=== PATIENT | female | born 1965 | race Caucasian/White ===

== ENCOUNTER 2024-08-05 18:37 | Inpatient (IN) ==
[2024-08-05] MEDS: SODIUM CHLORIDE 0.9% 1,000 ML IV SCH (19:06)
[2024-08-05] MEDS: ONDANSETRON INJ 2 MG/ML 2 ML VIAL IV STA (19:06)
[2024-08-05 19:18] LABS: iSTAT Creatinine 4.1 mg/dl (0.6-1.3); iSTAT Hemoglobin 14.3 g/dl (12.0-16.0); iSTAT Ionized Calcium 1.1 mmol/l (1.12-1.32); iSTAT Potassium 4.9 mmol/L (3.3-5.0)
[2024-08-05 19:19] LABS: Basophils # (auto) 0.09 K/uL (0.00-0.20); Basophils % (auto) 0.6 %; Eosinophils # (auto) 0.08 K/uL (0.00-0.50); Eosinophils % (auto) 0.6 %; Hematocrit (blood only) 37.3 % (37.0-47.0); Hemoglobin 12.9 g/dl (12.0-16.0); Immature Granulocytes # (auto) 0.07 K/uL (0.01-0.20); Immature Granulocytes % (auto) 0.5 %; Lymphocytes # (auto) 3.56 K/uL (1.20-3.40); Lymphocytes % (auto) 25.4 %; Mean Corpuscular Hemoglobin 29.7 pg (25.0-34.0); Mean Corpuscular Hgb Conc 34.6 g/dL (32.0-36.0); Mean Corpuscular Volume 85.9 fL (80.0-100.0); Mean Platelet Volume 10.3 fL (9.4-12.4); Monocytes # (auto) 0.53 K/uL (0.11-0.59); Monocytes % (auto) 3.8 %; Neutrophils # (auto) 9.66 K/uL (1.40-6.50); Neutrophils % (auto) 69.1 %; Platelet Count 503 K/uL (130-400); RDW Coefficient of Variation 13.4 % (11.5-14.5); RDW Standard Deviation 41.5 fL (36.4-46.3); Red Blood Count 4.34 M/uL (4.20-5.40); White Blood Count 13.99 K/ul (4.8-10.8)
--- NOTE | 2024-08-05 19:20 | Emergency Department Note ---
Impression & Plan Gastroenteritis, Elevated lactic acid level, Hypotension, PRIYANK (acute kidney injury) ED Provider Note Provider: Andre Mohamud MD CHIEF COMPLAINT: Nausea vomiting diarrhea, weakness HISTORY OF PRESENT ILLNESS: Patient is a 58-year-old female history of hypertension hypothyroidism presenting here today reporting over the last 2 days been experiencing nausea vomiting and several episodes of nonbloody diarrhea. Denies any abdominal pain or chest pain. Feeling generally weak and fatigued. No fevers or sick contacts. No travel. No suspect food intake. Almost no water intake today but did eat and drink some yesterday. Feels nauseous now. No chest pain again or significant shortness of breath. Denies specifically again any abdominal pain. States she has been urinating okay today. Denies drug or alcohol use today. Denies URI symptoms or significant cough PAST MEDICAL HISTORY: As noted above MEDICATIONS: Reviewed home medications SOCIAL HISTORY: Smoker PHYSICAL EXAM: GENERAL: alert and oriented in no acute distress on stretcher somewhat fatigued appearing Head: normocephalic and atraumatic EYES: No injection, discharge or icterus. EOMI. NECK: Trachea midline. Good range of motion ENT: Mucous membranes pink and moist. LUNGS: Airway patent. No retractions. Breath sounds clear HEART: Regular tachycardic rate and rhythm. No chest wall tenderness ABDOMEN: Soft and non-tender, without guarding or rebound. No masses appreciated. SKIN: Acyanotic, warm, dry, without rashes EXTREMITIES: Without swelling, tenderness or deformity NEUROLOGICAL: No focal deficits moving all extremities. No aphasia. No facial droop or slurred speech. EK bpm sinus tachycardia. No PVC. Diffuse T wave inversions throughout without acute ST segment elevation. QTc 504. CONTINUOUS CARDIAC MONITORING: was ordered and showed a heart rate of 70s-110s bpm in sinus tachycardia Patient's laboratory studies and imaging reviewed. Differential includes Infection, dehydration, gastroenteritis, pancreatitis, perforation, obstruction, volvulus, constipation, cholecystitis, appendicitis, bowel ischemia, metabolic abnormality, hypo/hyperglycemia, electrolyte disturbance, anemia, hypoxia, cardiac sources, intracerebral event, toxicologic, neurologic, as well as other pathologies. IMPRESSION/MEDICAL DECISION MAKING: Patient denies any significant pain. Noted be hypotensive in triage and mildly tachycardic. Difficulty getting a fever but rectal temperature here not elevated or specifically low. No suspect food intake or recent travel or sick contact reported. Benign abdomen on exam. Blood work here without severe electrolyte abnormality but evidence of significant renal dysfunction creatinine over 3.6. Do not see a history of this. Blood work is sent to exclude findings for hepatitis and pancreatitis. Will obtain a noncontrast abdominal CT scan to look for any signs of renal obstruction or other intra-abdominal pathology although again not having significant abdominal pain or distention and doubt obstruction or perforation. Given some Zofran for symptoms. Not having significant respiratory complaints or other neurological complaints at this time. Denies any alcohol or substance abuse use today. Blood pressure does improve on recheck and a little 100s while receiving a 2 L IV fluid bolus. Lactate elevated 5.1. A total of 3 L of normal saline IV fluid bolus was administered. Broad-spectrum Zosyn initiated. Hyponatremia is noted without hyperkalemia. Anion gap notable. No transaminitis specifically noted. No elevated troponin. Procalcitonin 0.34 not severely elevated. Chest x-ray without significant abnormality noted. CT abdomen pelvis per radiology consistent with gastroenteritis no other acute abnormality noted. Stool testing ordered and pending collection of sample for testing. Respiratory viral panel sent for completeness. Patient is feeling improved upon reassessment. Given her significant PRIYANK however and will this could be viral gastroenteritis, covered empirically with Zosyn given the severity of her dehydration and elevated lactate and will bring in for further monitoring observation. Hospitalist team contacted. Blood cultures were collected prior to antibiotic ministration. DIAGNOSIS: Gastroenteritis, PRIYANK, elevated lactate, hypotension, dehydration DISPOSITION: Hospitalist will evaluate Patient was agreeable with this plan. Critical Care I have personally spent 33 minutes of critical care time in the direct management of this patient. This includes bedside care, interpretation of diagnostic studies, and testing, discussion with consultants, patient, and family members, and other required patient management activities. These 33 minutes is in excess of all separately billable procedures. Past Med/Surg History Problem List (Updated 08/05/24 @ 23:37 by Andre Mohamud M.D.) PRIYANK (acute kidney injury) (Acute) Hypotension (Acute) Elevated lactic acid level (Acute) Gastroenteritis (Acute) Medical History Migraine Social History Smoking Status: Current every day smoker Tobacco Type: Cigarettes Cigarettes Per Day: 1/2 pack per day; Hx Alcohol Use: No Hx Substance Use: No Preferred Language: Haitian Communication Ability: Effective Equipment Operator/Laborer/Supervisor Required: No Beliefs That Will Affect Care: None Current Living Situation: Other Current Living Situation Comment: boyfriend Other Information That Helps Us Care for You: No Feels Safe at Home: Yes Safety Concerns: Feels Safe At This Time Assistive Devices: Denture - Upper Allergies Allergies Allergy/AdvReac Type Severity Reaction Status Date / Time No Known Allergies Allergy Unverified 08/05/24 20:15 Home Meds Home Medications Medication Instructions Recorded Confirmed albuterol sulfate 90 mcg/actuation 2 puff inhalation Q4H PRN COUGH OR 08/05/24 08/05/24 aerosol inhaler WHEEZING allopurinol 300 mg tablet 300 mg PO QAM 08/05/24 08/05/24 amlodipine 5 mg tablet 5 mg PO QAM 08/05/24 08/05/24 atorvastatin 20 mg tablet 20 mg PO QAM 08/05/24 08/05/24 buspirone 10 mg tablet 10 mg PO TID 08/05/24 08/05/24 cholecalciferol (vitamin D3) 25 1,000 unit PO QAM 08/05/24 08/05/24 mcg (1,000 unit) capsule (Vitamin D3) levothyroxine 150 mcg tablet 150 mcg PO QAM 08/05/24 08/05/24 lisinopril 40 mg tablet 40 mg PO DAILY 08/05/24 08/05/24 magnesium oxide 400 mg (241.3 mg 800 mg PO QAM 08/05/24 08/05/24 magnesium) tablet omeprazole 20 mg capsule,delayed 20 mg PO DAILY 08/05/24 08/05/24 release paroxetine HCl 10 mg tablet 10 mg PO QAM 08/05/24 08/05/24 paroxetine HCl 40 mg tablet 40 mg PO QAM 08/05/24 08/05/24 potassium chloride 20 mEq 20 meq PO BID 08/05/24 08/05/24 tablet,extended release(part/cryst) (Klor-Con M) Results & Data (ED) Vital Signs Vital Signs - 24 hr 08/05/24 18:43 08/05/24 19:13 08/05/24 19:30 Temperature 33.2 C L 36.5 C Temperature Source Axillary Rectal Pulse Rate 108 H Pulse Rate [Right Finger] 85 80 Pulse Rhythm [Right Finger] Regular Respiratory Rate 16 18 28 H Respiratory Effort / Characteristics Non-Labored Spontaneous Non-Labored Spontaneous Respiratory Depth Normal Normal Respiratory Pattern Regular Regular Blood Pressure 72/61 L Blood Pressure [Right Arm] 96/66 L 101/74 Blood Pressure Mean 64 Blood Pressure Mean [Right Arm] 76 83 Pulse Oximetry 100 99 100 Oxygen Delivery Method Room Air Room Air Room Air Sepsis Recent Fever Within 48 Hours No Sepsis New/Unexplained Change in Mental Status N/A Sepsis Action Taken by Nursing Physician Notified 08/05/24 19:35 08/05/24 19:50 08/05/24 20:00 Temperature Temperature Source Pulse Rate 82 Pulse Rate [Right Finger] 91 H 76 Pulse Rhythm [Right Finger] Respiratory Rate 22 28 H Respiratory Effort / Characteristics Respiratory Depth Respiratory Pattern Blood Pressure Blood Pressure [Right Arm] 93/65 L 98/76 L Blood Pressure Mean Blood Pressure Mean [Right Arm] 74 83 Pulse Oximetry 97 97 Oxygen Delivery Method Room Air Room Air Sepsis Recent Fever Within 48 Hours Sepsis New/Unexplained Change in Mental Status Sepsis Action Taken by Nursing 08/05/24 20:15 08/05/24 20:30 08/05/24 20:36 Temperature Temperature Source Pulse Rate Pulse Rate [Right Finger] 78 117 H Pulse Rhythm [Right Finger] Respiratory Rate 20 24 Respiratory Effort / Characteristics Respiratory Depth Respiratory Pattern Blood Pressure Blood Pressure [Right Arm] 98/72 L 83/57 L Blood Pressure Mean Blood Pressure Mean [Right Arm] 80 65 Pulse Oximetry 99 98 100 Oxygen Delivery Method Room Air Room Air Room Air Sepsis Recent Fever Within 48 Hours Sepsis New/Unexplained Change in Mental Status Sepsis Action Taken by Nursing Laboratory Data 08/05/24 19:00 08/05/24 19:00 Lab Results 08/05/24 08/05/24 08/05/24 Range/Units 19:00 19:06 19:14 WBC 13.99 H (4.8-10.8) K/ul RBC 4.34 (4.20-5.40) M/uL Hgb 12.9 (12.0-16.0) g/dl POC Hgb 14.3 (12.0-16.0) g/dl Hct 37.3 (37.0-47.0) % POC Hct 42 (37-47) % MCV 85.9 (80.0-100.0) fL MCH 29.7 (25.0-34.0) pg MCHC 34.6 (32.0-36.0) g/dL RDW Std Deviation 41.5 (36.4-46.3) fL RDW Coeff of Jorge A 13.4 (11.5-14.5) % Plt Count 503 H (130-400) K/uL MPV 10.3 (9.4-12.4) fL Immature Gran % (Auto) 0.5 % Neut % (Auto) 69.1 % Lymph % (Auto) 25.4 % [place] % (Auto) 3.8 % Eos % (Auto) 0.6 % Baso % (Auto) 0.6 % Neut # (Auto) 9.66 H (1.40-6.50) K/uL Lymph # (Auto) 3.56 H (1.20-3.40) K/uL [place] # (Auto) 0.53 (0.11-0.59) K/uL Eos # (Auto) 0.08 (0.00-0.50) K/uL Baso # (Auto) 0.09 (0.00-0.20) K/uL Immature Gran # (Auto) 0.07 (0.01-0.20) K/uL PT 11.7 (9.0-12.0) Seconds INR 1.1 (0.9-1.1) POC Sodium 133 L (135-144) mmol/L Sodium 133 L (136-145) mmol/L POC Potassium 4.9 (3.3-5.0) mmol/L Potassium 4.9 (3.5-5.1) mmol/L POC Chloride 100 L (101-112) mmol/L Chloride 97 L (98-107) mmol/L Carbon Dioxide 20 L (21-32) mmol/L POC Total CO2 18 L (24-31) mmol/L Anion Gap 16 H (3-11) POC Anion Gap 21.0 (16-25) mmol/L POC BUN 28 H (7-18) mg/dl BUN 29 H (6-23) mg/dl Creatinine 3.62 H (0.6-1.2) mg/dl POC Creatinine 4.1 H (0.6-1.3) mg/dl Est Cr Clr Drug Dosing 18.6 ml/min eGFR 13.86 BUN/Creatinine Ratio 8.0 L (10-20) Glucose 133 H (70-99(Fasting)) mg/dl POC Glucose (other) 130 H (70-99) mg/dl Lactate 5.1 H* (0.4-2.0) mmol/L Calcium 10.2 (8.6-10.3) mg/dl POC Ioniz Calcium [place] 1.10 L (1.12-1.32) mmol/l Magnesium 1.8 (1.7-2.4) mg/dl Total Bilirubin 0.6 (0.2-1.0) mg/dl AST 20 (13-39) U/L ALT 10 (7-52) U/L Alkaline Phosphatase 188 H (34-104) U/L Troponin I High Sens 2.7 (0-14) pg/ml Total Protein 7.9 (6.0-8.3) gm/dl Albumin 3.9 (3.4-5.0) gm/dl Globulin 4.0 (2.5-4.0) gm/dl Albumin/Globulin Ratio 1.0 (0.9-2) Lipase 71 (11-82) U/L Procalcitonin 0.34 (0-0.5) ng/ml TSH 0.216 L (0.300-4.500) uIu/ml Free T4 2.32 H (0.61-1.60) ng/dl Adenovirus (PCR) Not Detected (NotDetected) B. pertussis DNA (PCR) Not Detected (NotDetected) B.parapertussis DNA PCR Not Detected (NotDetected) C. pneumoniae DNA (PCR) Not Detected (NotDetected) Coronavirus OC43 (PCR) Not Detected (NotDetected) Coronavirus HKU1 (PCR) Not Detected (NotDetected) Coronavirus 229E (PCR) Not Detected (NotDetected) SARS-CoV-2 (PCR) Not Detected (NotDetected) Coronavirus NL63 (PCR) Not Detected (NotDetected) Human Metapneumovir PCR Not Detected (NotDetected) Influenza Type A (PCR) Not Detected (NotDetected) Influenza Type B (PCR) Not Detected (NotDetected) M. pneumoniae (PCR) Not Detected (NotDetected) Parainfluenza 1 (PCR) Not Detected (NotDetected) Parainfluenza 2 (PCR) Not Detected (NotDetected) Parainfluenza 3 (PCR) Not Detected (NotDetected) Parainfluenza 4 (PCR) Not Detected (NotDetected) RSV (PCR) Not Detected (NotDetected) Entero/Rhino (PCR) Not Detected (NotDetected) Administered Medications Lactated Ringer's (Lr) 1,000 mls @ 200 mls/hr IV .Q5H STA Stop: 08/06/24 01:59 Last Admin: 08/05/24 21:48 Dose: 200 mls/hr Documented By: ASHLEY Discontinued Medications Sodium Chloride (Nss) 1,000 mls @ 999 mls/hr IV .Q1H1M JERRICA Stop: 08/05/24 21:00 Last Infusion: 08/05/24 21:48 Dose: Infused Documented By: Admin: 08/05/24 20:10 Dose: 999 mls/hr Documented By: Infusion: 08/05/24 20:07 Dose: Infused Documented By: Admin: 08/05/24 19:06 Dose: 999 mls/hr Documented By: LATONYA Piperacillin Sod/Tazobactam Sod (Zosyn) 4.5 gm in 100 mls @ 200 mls/hr IV NOW ONE; Protocol Stop: 08/05/24 20:09 Last Infusion: 08/05/24 21:48 Dose: Infused Documented By: Admin: 08/05/24 19:55 Dose: 200 mls/hr Documented By: LATONYA Sodium Chloride (Nss) 1,000 mls @ 999 mls/hr IV .Q1H1M ONE Stop: 08/05/24 21:00 Last Infusion: 08/05/24 21:48 Dose: Infused Documented By: Admin: 08/05/24 20:40 Dose: 999 mls/hr Documented By: LATONYA Metronidazole (Flagyl) 500 mg in 100 mls @ 100 mls/hr IV NOW STA; Protocol Stop: 08/05/24 21:29 Last Infusion: 08/05/24 21:48 Dose: Infused Documented By: Admin: 08/05/24 20:40 Dose: 100 mls/hr Documented By: LATONYA Ondansetron HCl (Ondansetron Inj 2 Mg/Ml 2 Ml Vial) 4 mg IV NOW STA Stop: 08/05/24 19:00 Last Admin: 08/05/24 19:06 Dose: 4 mg Documented By: LATONYA Imaging Data Radiologist's Impression: Chest X-Ray 08/05/24 19:00 EXAM: Portable AP chest radiograph TECHNIQUE: AP portable radiograph of the chest was obtained. INDICATION: Weakness Comparison: None FINDINGS: LINES and TUBES: None CARDIOVASCULAR: Cardiac silhouette is normal in size. LUNGS/PLEURA: No focal consolidation identified. No significant pleural fluid. No discernible pneumothorax. OSSEOUS/OTHER: No displaced acute osseous process identified. IMPRESSION: No radiographic evidence of acute cardiopulmonary process. 1234 Electronically signed by German Ramon 08-05-2024 7:47 PM Abdomen/Pelvis CT 08/05/24 19:14 CT ABDOMEN and PELVIS without INTRAVENOUS CONTRAST HISTORY: Abdominal pain TECHNIQUE: CT abdomen and pelvis without contrast. IV CONTRAST: None ENTERIC CONTRAST: None. COMPARISON: None FINDINGS: LOWER CHEST: Mild coronary calcifications LIVER: No focal lesion identified in this noncontrast study. Hepatic steatosis. GALLBLADDER/BILIARY: Unremarkable gallbladder. No abnormal biliary dilatation. SPLEEN: Unremarkable. PANCREAS: Unremarkable. ADRENALS: Unremarkable. KIDNEYS: Unremarkable. No stones or hydronephrosis identified. PERITONEUM/RETROPERITONEUM. No lymphadenopathy by size criteria. No aortic aneurysm. Moderate atherosclerosis. Cortical cysts just intact GASTROINTESTINAL: No obstruction. Gastric wall thickening. Multiple loops of small bowel demonstrate inflammatory changes with mild wall thickening. REPRODUCTIVE: Status post hysterectomy URINARY BLADDER: Unremarkable and under distended. BONES: No acute findings. Sclerotic changes in the vertebral bodies of L1-2 likely degenerative in nature with accelerated disc space loss. IMPRESSION: Findings suggesting gastroenteritis as above. Electronically signed by German Ramon 08-05-2024 8:07 PM Discharge Plan Visit Data Chief Complaint: Illness Stated Complaint: ABD PAIN, SWEATING, VOMIT ED Provider: Andre Mohamud Discharge Problem: Gastroenteritis, Elevated lactic acid level, Hypotension, PRIYANK (acute kidney injury) Patient Disposition: Admitted As Inpatient Discharge Instructions Interventions: ED Discharge Assessment Last Done: 08/05/24 22:35
[2024-08-05 19:34] LABS: Albumin Level 3.9 gm/dl (3.4-5.0); Bilirubin,Total 0.6 mg/dl (0.2-1.0); Calcium 10.2 mg/dl (8.6-10.3); Creatinine Clr Calc Pharmacy 18.6 ml/min; Magnesium 1.8 mg/dl (1.7-2.4); Potassium 4.9 mmol/L (3.5-5.1); Total Protein 7.9 gm/dl (6.0-8.3)
[2024-08-05 19:40] LABS: Troponin I High Sensitivity 2.7 pg/ml (0-14)
[2024-08-05 19:49] LABS: Thyroid Stimulating Hormone 0.216 uIu/ml (0.300-4.500)
--- NOTE | 2024-08-05 19:50 | XRay Report ---
EXAM: Portable AP chest radiograph TECHNIQUE: AP portable radiograph of the chest was obtained. INDICATION: Weakness Comparison: None FINDINGS: LINES and TUBES: None CARDIOVASCULAR: Cardiac silhouette is normal in size. LUNGS/PLEURA: No focal consolidation identified. No significant pleural fluid. No discernible pneumothorax. OSSEOUS/OTHER: No displaced acute osseous process identified. IMPRESSION: No radiographic evidence of acute cardiopulmonary process. 1234 Electronically signed by German Ramon 08-05-2024 7:47 PM
[2024-08-05 19:54] LABS: INR 1.1 (0.9-1.1); Prothrombin Time 11.7 Seconds (9.0-12.0)
[2024-08-05] MEDS: PIPERACILLIN/TAZOBACTAM 4.5 GM/100 ML BAG IV ONE (19:55)
--- NOTE | 2024-08-05 20:09 | CT Scan Report ---
CT ABDOMEN and PELVIS without INTRAVENOUS CONTRAST HISTORY: Abdominal pain TECHNIQUE: CT abdomen and pelvis without contrast. IV CONTRAST: None ENTERIC CONTRAST: None. COMPARISON: None FINDINGS: LOWER CHEST: Mild coronary calcifications LIVER: No focal lesion identified in this noncontrast study. Hepatic steatosis. GALLBLADDER/BILIARY: Unremarkable gallbladder. No abnormal biliary dilatation. SPLEEN: Unremarkable. PANCREAS: Unremarkable. ADRENALS: Unremarkable. KIDNEYS: Unremarkable. No stones or hydronephrosis identified. PERITONEUM/RETROPERITONEUM. No lymphadenopathy by size criteria. No aortic aneurysm. Moderate atherosclerosis. Cortical cysts just intact GASTROINTESTINAL: No obstruction. Gastric wall thickening. Multiple loops of small bowel demonstrate inflammatory changes with mild wall thickening. REPRODUCTIVE: Status post hysterectomy URINARY BLADDER: Unremarkable and under distended. BONES: No acute findings. Sclerotic changes in the vertebral bodies of L1-2 likely degenerative in nature with accelerated disc space loss. IMPRESSION: Findings suggesting gastroenteritis as above. Electronically signed by German Ramon 08-05-2024 8:07 PM
[2024-08-05 20:26] LABS: T4 Free Thyroxine 2.32 ng/dl (0.61-1.60)
[2024-08-05 20:27] LABS: Adenovirus PCR Not Detected (NotDetected); Bordetella parapertussis PCR Not Detected (NotDetected); Bordetella pertussis PCR Not Detected (NotDetected); Chlamydia pneumoniae PCR Not Detected (NotDetected); Coronavirus 229E PCR Not Detected (NotDetected); Coronavirus CoV-2 (COVID19)PCR Not Detected (NotDetected); Coronavirus HKU1 PCR Not Detected (NotDetected); Coronavirus NL63 PCR Not Detected (NotDetected); Coronavirus OC43PCR Not Detected (NotDetected); Human Metapneumovirus PCR Not Detected (NotDetected); Influenza A PCR Not Detected (NotDetected); Influenza B PCR Not Detected (NotDetected); Mycoplasma pneumoniae PCR Not Detected (NotDetected); Parainfluenza Virus 1 PCR Not Detected (NotDetected); Parainfluenza Virus 2 PCR Not Detected (NotDetected); Parainfluenza Virus 3 PCR Not Detected (NotDetected); Parainfluenza Virus 4 PCR Not Detected (NotDetected); Respiratory Syncytial VirusPCR Not Detected (NotDetected); Rhinovirus/Enterovirus PCR Not Detected (NotDetected)
--- NOTE | 2024-08-05 20:39 | History & Physical Report ---
Date of Service August 05, 2024 Assessment & Plan (1) Hypotension: Plan: Hypotension ARF on CKD secondary to diarrheal illness rule out infectious causes hyperlipidemia on statin Rx hypothyroidism, low TSH with elevated free T4 Intention tremors for for a few months now as per family GERD, on PPI gout, stable on allopurinol anxiety/mood disorder, stable on regimen Hyperglycemia rule out DM ongoing tobacco abuse Admit to PCU Monitor creatinine and lactic acid response to IVF Hold BP meds for now Stool cultures, stool C. difficile Flagyl 1 dose for now for possible C. difficile given sepsis criteria. Oral vancomycin if stool C. difficile positive Decrease current home levothyroxine dose from 150 mcg to 125 mcg p.o. daily, recheck outpatient TSH after 6 weeks Check hemoglobin A1c Nicotine patch as needed DVT prophylaxis. Heparin subcu Full code Text document was generated using [employer] voice recognition software. It may contain grammatical or spelling errors. Kindly contact undersigned for clarification of any documentation item in question. History of Present Illness Chief Complaint: Nausea, vomiting, diarrhea, weakness Primary Care Provider: Janel Thornton DO History obtained from patient, family, and records. Medical history significant for hypertension, hyperlipidemia, hypothyroidism, CRI (baseline creatinine 1.4), GERD, gout, anxiety/mood disorder, ongoing tobacco abuse. Recent confinement [facility] a few months ago for weakness and low magnesium as per family. 2 days history of nausea vomiting diarrhea symptoms. Patient feeling weak and fatigued. No headache, chest pain, SOB. Not sure about sick contacts. No recent antibiotic Rx or out-of-town travel. Denies OTC NSAID Rx intake. SBP 70s upon arrival at the ER. Medical History as above Surgical History : Carpal tunnel surgery, CINTIA, appendectomy Family History : DM, breast cancer, heart disease Personal/Social history : 1 pack daily, no EtOH intake, applying for disability Allergies Allergy/AdvReac Type Severity Reaction Status Date / Time No Known Allergies Allergy Unverified 08/05/24 20:15 Home Medications Medication Instructions Recorded Confirmed Type albuterol sulfate 90 mcg/actuation 2 puff inhalation Q4H PRN COUGH OR 08/05/24 08/05/24 History aerosol inhaler WHEEZING allopurinol 300 mg tablet 300 mg PO QAM 08/05/24 08/05/24 History amlodipine 5 mg tablet 5 mg PO QAM 08/05/24 08/05/24 History atorvastatin 20 mg tablet 20 mg PO QAM 08/05/24 08/05/24 History buspirone 10 mg tablet 10 mg PO TID 08/05/24 08/05/24 History cholecalciferol (vitamin D3) 25 1,000 unit PO QAM 08/05/24 08/05/24 History mcg (1,000 unit) capsule (Vitamin D3) levothyroxine 150 mcg tablet 150 mcg PO QAM 08/05/24 08/05/24 History lisinopril 40 mg tablet 40 mg PO DAILY 08/05/24 08/05/24 History magnesium oxide 400 mg (241.3 mg 800 mg PO QAM 08/05/24 08/05/24 History magnesium) tablet omeprazole 20 mg capsule,delayed 20 mg PO DAILY 08/05/24 08/05/24 History release paroxetine HCl 10 mg tablet 10 mg PO QAM 08/05/24 08/05/24 History paroxetine HCl 40 mg tablet 40 mg PO QAM 08/05/24 08/05/24 History potassium chloride 20 mEq 20 meq PO BID 08/05/24 08/05/24 History tablet,extended release(part/cryst) (Klor-Con M) Past Med/Surg History Problem List (Updated 08/05/24 @ 23:37 by Andre Mohamud M.D.) PRIYANK (acute kidney injury) (Acute) Hypotension (Acute) Elevated lactic acid level (Acute) Gastroenteritis (Acute) Medical History Migraine Social History Smoking Status: Current every day smoker Tobacco Type: Cigarettes Cigarettes Per Day: 1/2 pack per day; Hx Alcohol Use: No Hx Substance Use: No Preferred Language: Turkish Communication Ability: Effective Rod Buster Required: No Beliefs That Will Affect Care: None Current Living Situation: Other Current Living Situation Comment: boyfriend Other Information That Helps Us Care for You: No Feels Safe at Home: Yes Safety Concerns: Feels Safe At This Time Assistive Devices: Denture - Upper Review of Systems 2 Review of Systems: As per HPI, all other systems reviewed and negative Physical Exam Physical Exam: GENERAL: Comfortable, looks older than stated age, no respiratory distress SKIN: Normal color, warm HEENT: [place] palpebral conjunctivae, no ptosis, dry buccal mucosa, partially dental loose, NECK : Supple, no tenderness CHEST : CTA, no tenderness HEART : RRR, no obvious murmurs ABDOMEN: Some distention, nontender EXTREMITIES : No LE swelling/tenderness, palpable pulses, no other conspicuous deformities noted NEUROLOGIC : Coherent, no facial asymmetry, intention tremors, gait and stance not assessed Results & Data Results & Data Vital Signs (Past 12 Hours) Vital Signs Temp Pulse Pulse Resp BP BP Pulse Ox 08/05/24 20:36 100 08/05/24 19:35 82 08/05/24 19:13 36.5 C 85 18 96/66 L 99 08/05/24 18:43 33.2 C L 108 H 16 72/61 L 100 O2 Del Method 08/05/24 20:36 Room Air 08/05/24 19:35 08/05/24 19:13 Room Air 08/05/24 18:43 Room Air Laboratory Results Laboratory Results WBC 13.99 K/ul (4.8-10.8) H 08/05/24 19:00 RBC 4.34 M/uL (4.20-5.40) 08/05/24 19:00 Hgb 12.9 g/dl (12.0-16.0) 08/05/24 19:00 POC Hgb 14.3 g/dl (12.0-16.0) 08/05/24 19:06 Hct 37.3 % (37.0-47.0) 08/05/24 19:00 POC Hct 42 % (37-47) 08/05/24 19:06 MCV 85.9 fL (80.0-100.0) 08/05/24 19:00 MCH 29.7 pg (25.0-34.0) 08/05/24 19:00 MCHC 34.6 g/dL (32.0-36.0) 08/05/24 19:00 RDW Std Deviation 41.5 fL (36.4-46.3) 08/05/24 19:00 RDW Coeff of Jorge A 13.4 % (11.5-14.5) 08/05/24 19:00 Plt Count 503 K/uL (130-400) H 08/05/24 19:00 MPV 10.3 fL (9.4-12.4) 08/05/24 19:00 Immature Gran % (Auto) 0.5 % 08/05/24 19:00 Neut % (Auto) 69.1 % 08/05/24 19:00 Lymph % (Auto) 25.4 % 08/05/24 19:00 [place] % (Auto) 3.8 % 08/05/24 19:00 Eos % (Auto) 0.6 % 08/05/24 19:00 Baso % (Auto) 0.6 % 08/05/24 19:00 Neut # (Auto) 9.66 K/uL (1.40-6.50) H 08/05/24 19:00 Lymph # (Auto) 3.56 K/uL (1.20-3.40) H 08/05/24 19:00 [place] # (Auto) 0.53 K/uL (0.11-0.59) 08/05/24 19:00 Eos # (Auto) 0.08 K/uL (0.00-0.50) 08/05/24 19:00 Baso # (Auto) 0.09 K/uL (0.00-0.20) 08/05/24 19:00 Immature Gran # (Auto) 0.07 K/uL (0.01-0.20) 08/05/24 19:00 PT 11.7 Seconds (9.0-12.0) 08/05/24 19:00 INR 1.1 (0.9-1.1) 08/05/24 19:00 POC Sodium 133 mmol/L (135-144) L 08/05/24 19:06 Sodium 133 mmol/L (136-145) L 08/05/24 19:00 POC Potassium 4.9 mmol/L (3.3-5.0) 08/05/24 19:06 Potassium 4.9 mmol/L (3.5-5.1) 08/05/24 19:00 POC Chloride 100 mmol/L (101-112) L 08/05/24 19:06 Chloride 97 mmol/L (98-107) L 08/05/24 19:00 Carbon Dioxide 20 mmol/L (21-32) L 08/05/24 19:00 POC Total CO2 18 mmol/L (24-31) L 08/05/24 19:06 Anion Gap 16 (3-11) H 08/05/24 19:00 POC Anion Gap 21.0 mmol/L (16-25) 08/05/24 19:06 POC BUN 28 mg/dl (7-18) H 08/05/24 19:06 BUN 29 mg/dl (6-23) H 08/05/24 19:00 Creatinine 3.62 mg/dl (0.6-1.2) H 08/05/24 19:00 POC Creatinine 4.1 mg/dl (0.6-1.3) H 08/05/24 19:06 Est Cr Clr Drug Dosing 18.6 ml/min 08/05/24 19:00 eGFR 13.86 08/05/24 19:00 BUN/Creatinine Ratio 8.0 (10-20) L 08/05/24 19:00 Glucose 133 mg/dl (70-99(Fasting)) H 08/05/24 19:00 POC Glucose (other) 130 mg/dl (70-99) H 08/05/24 19:06 Lactate 5.1 mmol/L (0.4-2.0) H* 08/05/24 19:00 Calcium 10.2 mg/dl (8.6-10.3) 08/05/24 19:00 POC Ioniz Calcium [place] 1.10 mmol/l (1.12-1.32) L 08/05/24 19:06 Magnesium 1.8 mg/dl (1.7-2.4) 08/05/24 19:00 Total Bilirubin 0.6 mg/dl (0.2-1.0) 08/05/24 19:00 AST 20 U/L (13-39) 08/05/24 19:00 ALT 10 U/L (7-52) 08/05/24 19:00 Alkaline Phosphatase 188 U/L (34-104) H 08/05/24 19:00 Troponin I High Sens 2.7 pg/ml (0-14) 08/05/24 19:00 Total Protein 7.9 gm/dl (6.0-8.3) 08/05/24 19:00 Albumin 3.9 gm/dl (3.4-5.0) 08/05/24 19:00 Globulin 4.0 gm/dl (2.5-4.0) 08/05/24 19:00 Albumin/Globulin Ratio 1.0 (0.9-2) 08/05/24 19:00 Lipase 71 U/L (11-82) 08/05/24 19:00 Procalcitonin 0.34 ng/ml (0-0.5) 08/05/24 19:00 TSH 0.216 uIu/ml (0.300-4.500) L 08/05/24 19:00 Free T4 2.32 ng/dl (0.61-1.60) H 08/05/24 19:00 Adenovirus (PCR) Not Detected (NotDetected) 08/05/24 19:14 B. pertussis DNA (PCR) Not Detected (NotDetected) 08/05/24 19:14 B.parapertussis DNA PCR Not Detected (NotDetected) 08/05/24 19:14 C. pneumoniae DNA (PCR) Not Detected (NotDetected) 08/05/24 19:14 Coronavirus OC43 (PCR) Not Detected (NotDetected) 08/05/24 19:14 Coronavirus HKU1 (PCR) Not Detected (NotDetected) 08/05/24 19:14 Coronavirus 229E (PCR) Not Detected (NotDetected) 08/05/24 19:14 SARS-CoV-2 (PCR) Not Detected (NotDetected) 08/05/24 19:14 Coronavirus NL63 (PCR) Not Detected (NotDetected) 08/05/24 19:14 Human Metapneumovir PCR Not Detected (NotDetected) 08/05/24 19:14 Influenza Type A (PCR) Not Detected (NotDetected) 08/05/24 19:14 Influenza Type B (PCR) Not Detected (NotDetected) 08/05/24 19:14 M. pneumoniae (PCR) Not Detected (NotDetected) 08/05/24 19:14 Parainfluenza 1 (PCR) Not Detected (NotDetected) 08/05/24 19:14 Parainfluenza 2 (PCR) Not Detected (NotDetected) 08/05/24 19:14 Parainfluenza 3 (PCR) Not Detected (NotDetected) 08/05/24 19:14 Parainfluenza 4 (PCR) Not Detected (NotDetected) 08/05/24 19:14 RSV (PCR) Not Detected (NotDetected) 08/05/24 19:14 Entero/Rhino (PCR) Not Detected (NotDetected) 08/05/24 19:14 Impressions Chest X-Ray 08/05/24 19:00 EXAM: Portable AP chest radiograph TECHNIQUE: AP portable radiograph of the chest was obtained. INDICATION: Weakness Comparison: None FINDINGS: LINES and TUBES: None CARDIOVASCULAR: Cardiac silhouette is normal in size. LUNGS/PLEURA: No focal consolidation identified. No significant pleural fluid. No discernible pneumothorax. OSSEOUS/OTHER: No displaced acute osseous process identified. IMPRESSION: No radiographic evidence of acute cardiopulmonary process. [id number] Electronically signed by German Ramon 08-05-2024 7:47 PM Abdomen/Pelvis CT 08/05/24 19:14 CT ABDOMEN and PELVIS without INTRAVENOUS CONTRAST HISTORY: Abdominal pain TECHNIQUE: CT abdomen and pelvis without contrast. IV CONTRAST: None ENTERIC CONTRAST: None. COMPARISON: None FINDINGS: LOWER CHEST: Mild coronary calcifications LIVER: No focal lesion identified in this noncontrast study. Hepatic steatosis. GALLBLADDER/BILIARY: Unremarkable gallbladder. No abnormal biliary dilatation. SPLEEN: Unremarkable. PANCREAS: Unremarkable. ADRENALS: Unremarkable. KIDNEYS: Unremarkable. No stones or hydronephrosis identified. PERITONEUM/RETROPERITONEUM. No lymphadenopathy by size criteria. No aortic aneurysm. Moderate atherosclerosis. Cortical cysts just intact GASTROINTESTINAL: No obstruction. Gastric wall thickening. Multiple loops of small bowel demonstrate inflammatory changes with mild wall thickening. REPRODUCTIVE: Status post hysterectomy URINARY BLADDER: Unremarkable and under distended. BONES: No acute findings. Sclerotic changes in the vertebral bodies of L1-2 likely degenerative in nature with accelerated disc space loss. IMPRESSION: Findings suggesting gastroenteritis as above. Electronically signed by German Ramon 08-05-2024 8:07 PM Diagnostic Findings EKG as per my interpretation :Rate 110, sinus tachycardia, RAD, RBBB, T wave inversion inferior and anterolateral leads
[2024-08-05] MEDS: metroNIDAZOLE 500 MG/100 ML BAG IV STA (20:40)
[2024-08-05] MEDS: SODIUM CHLORIDE 0.9% 1,000 ML IV ONE (20:40)
[2024-08-05 20:53] LABS: Base Excess VBG -3.3 mEq/L; HCO3 VBG 21 mmol/L; Oxygen Saturation VBG < 60.0 %; PCO2 VBG 36 mmHg (38-50); PO2 VBG 27 mmHg; pH VBG 7.38 (7.36-7.41)
[2024-08-05] MEDS: LACTATED RINGER'S 1,000 ML IV STA (21:48)
[2024-08-05 23:04] LABS: Appearance Urine Clear (Clear); Bacteria Urine Automated None Seen (None Seen); Bilirubin Urine Negative (Negative); Blood Urine 3+ (Negative); Color Urine Yellow; Epithelial Cell Urine Auto 0-2 /hpf (0-2); Glucose Urine UA Negative (Negative); Ketones Urine Negative (Negative); Leukocyte Esterase Urine Negative (Negative); Nitrite Urine Negative (Negative); Protein Urine 1+ (Negative); RBC Urine Automated >20 /hpf (0-2); Specific Gravity Urine 1.008 (1.000-1.030); Urobilinogen Urine Negative (Negative); WBC Urine Automated 0-5 /hpf (0-5); pH Urine 6.5 (4.5-7.5)
[2024-08-06] MEDS: LACTATED RINGER'S 1,000 ML IV SCH (03:05)
[2024-08-06] MEDS: MAGNESIUM SULFATE / D5W 1 GM/100 ML BAG IV ONE (03:42)
[2024-08-06] MEDS: LEVOTHYROXINE SODIUM 125 MCG TABLET PO SCH (05:30)
--- OUTSIDE RECORDS SUMMARY | 2024-08-06 07:24 | External Medical Summary ---
Author Name Unknown Address Unknown Organization [id number]:[facility] [place] [address] [place] [id number] Laboratory Report Ordering Provider Test Date Status SERA BOOTH 07/24/2024 12:01:21 Final Observation Date Value Abnormality Reference (Units ) Status Triglyceride 07/24/2024 12:01:21 176 Above high normal <=174 (mg/dL) Final Triglyceride Reference Range s (mg/dL):
<150 Acceptable
150-174 Borderline high
175-499 High
>=500 Very high Cholesterol 07/24/2024 12:01:21 107 <200 (mg /dL) Final Total Cholesterol Reference Ranges (mg/dL):
<200 Desirable
200-239 Borderline high
>=240 High HDL 07/24/2024 12:01:21 32 Below low normal >49 (mg/dL) Final HDL Cholesterol Reference Ra nges (mg/dL):
>=60 High (Desirable)
<50 Low (Undesirable) For Females
<40 Low (Undesirable) For Males NON-HDL CHOLESTEROL 07/24/2024 12:01:21 75 <=159 (mg/dL) Final Non-HDL Cholesterol Referenc e Range (mg/dL):
<100 Target level for high risk ASCVD patient
<130 Optimal for general population
130-159 Near optimal for general population
160-189 Borderline High
190-219 High
>=220 Very High Performing Location [facility] - [address] [place] [id number]
--- OUTSIDE RECORDS SUMMARY | 2024-08-06 07:24 | External Medical Summary | Summary of Care ---
Author Name Unknown Organization [facility] Address [address] [facility] [address] Phone [phone] Care Team Providers Care Computer Education Teacher Name Role Phone Janel Thornton DO Primary Care Provider [phone] Reason for Visit * Reason Comments Outpatient Testing Encounter Details Date Type Department Care Team (Late st Contact Info) Description 07/24/2024 12:20 PM EDT Laboratory Laboratory [address] [place] [phone] [facility] [address] [place] [address] Hypomagnesemia; Hypokalemia; HTN, goal below 130/80; Hyperlipidemia with target LDL less than 100; Vitamin D deficiency; Left foot pain; Oral ulcer Allergies No known active allergiesdocumented as of this encounter (statuses as of 07/24/2024) Medications Levothyroxine Sodium 150 MCG Oral Tablet (Levoxyl)Indication s:Acquired hypothyroidism TAKE 1 TABLET BY MOUTH DAILY FIRST THING IN THE MORNING AT LEAST 30MIN PRIOR TO BREAKFAST/OT HER MEDS 90 Tablet 3 4 Active Allopurinol 300 MG Oral Tablet (Zyloprim)Indicatio ns:Gout of big toe TAKE 1 TABLET BY MOUTH EVERY DAY IN THE MORNING 90 Tablet 1 4 Active PARoxetine HCl 10 MG Oral Tablet (pAXil) TAKE ONE TABLET BY MOUTH DAILY ALONG WITH 40MG DOSE FOR TOTAL DOSE OF 50MG 90 Tablet 3 4 Active PARoxetine HCl 40 MG Oral Tablet (pAXil) TAKE 1 TABLET BY MOUTH EVERY DAY IN THE MORNING, along with a 10mg, for total of 50 mg 90 Tablet 3 4 Active Atorvastatin Calcium 20 MG Oral Tablet (Lipitor)Indication s:Hyperlipidemia with target LDL less than 100 Take 1 Tablet by mouth in the morning. 90 Tablet 3 4 Active Albuterol Sulfate HFA 108 (90 Base) MCG/ACT Inhalation Aerosol Solution INHALE 2 PUFFS BY MOUTH EVERY 4 HOURS NEEDED FOR COUGH OR WHEEZING 54 g 2 4 Active busPIRone HCl 10 MG Oral Tablet (Buspar) TAKE 1 TABLET BY MOUTH IN THE MORNING AT AT NOON AND BEFORE BEDTIME 90 Tablet 11 4 Active Lisinopril 40 MG Oral Tablet Take 1 Tablet by mouth in the morning. 30 Tablet 5 4 Active Potassium Chloride Lori ER 20 MEQ Oral Tablet Extended ReleaseIndications: Electrolyte abnormality Take 1 Tablet by mouth in the morning and 1 Tablet before bedtime. 180 Tablet 1 4 Active D 1000 25 MCG (1000 UT) Oral Capsule Take 1 Capsule by mouth in the morning. 90 Capsule 1 4 Active amLODIPine Besylate 5 MG Oral Tablet (Norvasc)Indication s:HTN, goal below 130/80 Take 1 Tablet by mouth in the morning. 90 Tablet 1 5 Active Benzocaine 20 % Mouth/Throat Gel Apply small amount to oral ulcer 4x daily as needed 5.25 g 2 5 Active Magnesium Chloride 64 MG Oral Tablet Take 2 Tablets by mouth in the morning. 60 Tablet 3 5 Active documented as of this encounter (statuses as of 07/24/2024) Active Problems Problem Noted Date Diagnosed Date Idiopathic chronic gout of multiple sites withou t tophus 01/29/2023 Hyperuricemia 12/25/2021 Overview (12/26/2021): uric acid 10.4 Primary osteoarthritis of both knees 03/08/2020 Overview (03/08/2020): Left is worse Benign neoplasm of skin of right external audito ry canal 06/07/2017 Sensorineural hearing loss (SNHL), bilateral 06/2017 ETD (Eustachian tube dysfunction), right 018 Deviated nasal septum 06/07/2017 HTN, goal below 130/80 05/25/2016 Depression with anxiety 05/25/2016 Hyperlipidemia with target LDL less than 100 Gastroesophageal reflux disease without esophagi tis 05/25/2016 Acquired hypothyroidism 05/25/2016 Tobacco use disorder 05/25/2016 Chronic right-sided low back pain with right-kylee ed sciatica 05/25/2016 Neuropathy 05/25/2016 documented as of this encounter (statuses as of 07/24/2024) Resolved Problems Problem Noted Date Diagnosed Date Resolved Date Chronic kidney disease, stage 3a 07/10/2022 07/18/2022 CKD (chronic kidney disease), stage II 12/25/2021 08/21/2023 Overview (12/26/2021): EGFR 65 Food insecurity 10/16/2021 08/21/2023 Overview: Per [facility] Protocol Severe obesity with body mas s index (BMI) of 35.0 to 39.9 with serious comorbidity 07/17/2017 Overview (02/19/2018): ICD-10 update of inactive diagnosis BMI 38.0-38.9,adult 05/25/2016 07/18/19 18 documented as of this encounter (statuses as of 07/24/2024) Immunizations Name Administration Dates Next Due Pneumococcal Conjugate Vacci ne, 20-valent ([id number]) 12/25/2021 Pneumococcal Polysaccharide PPV23 (Pneumovax) 05/25/2016 Seasonal Influenza, PF, 6 M & above, IM , (FluLaval or Fluzone) 01/29/2023,03/21/2022,03/09/2021,03/08,01/26/2019,01/21/2018,03/05/2017 Seasonal Influenza, Quadriva lent, No Preserve, IM 05/25/2016 Seasonal Influenza, Trivalen t, (IIV3), PF, (Fluzone) 03/24/2024 TDAP (age 10 and older)(Boostrix) 12/07/2015 documented as of this encounter Social History Tobacco Use Types Packs/Day Years Used Date Smoking Tobacco: Every Day Cigarettes 1 32 Smokeless Tobacco: Never Alcohol Use Standard Drinks/Week Comments No 0 (1 standard drink = 0.6 oz pur e alcohol) PHQ-2 Answer Date Recorded PHQ Adult Total Score 1 07/24/2024 Hunger Vital Sign Answer Date Recorded Within the past 12 months, y ou worried that your food would run out before you got the money to buy more. Sometimes true Within the past 12 months, t he food you bought just didn't last and you didn't have money to get more. Sometimes true Childcare Answer Date Recorded Do you feel overwhelmed with taking care of a child, family member or friend? No 01/22/2023 Does your family need help f inding childcare? (Household - for ages 0-17 years) Not on file 01/22/2023 Clothing Answer Date Recorded Have you been unable to get clothing when it was really needed? No 01/22/2023 Is your family able to get c lothes or diapers when needed? (Household - for ages 0-17 years) Not on file 01/22/2023 Personal Safety Answer Date Recorded Do you feel unsafe or have concerns for your saf ety? No 01/22/2023 Do you have concerns for you r family's safety? (Household - for ages 0-17 years) Not on file 01/22/2023 Utilities Answer Date Recorded Do you have trouble paying y our heating, water, or electric bill? No 01/22/2023 Is your family able to pay t he heat, water, or electric bill? (Household - for ages 0-17 years) Not on file 01/22/2023 Does your family have access to good internet? (Household - for ages 0-17 years) Not on file 01/22/2023 Employment Status Answer Date Recorded Are you unemployed or without regular income? No 01/22/2023 Does the household have a re gular source of income? (Household - for ages 0-17 years) Not on file 01/22/2023 Social Connections Answer Date Recorded How often do you feel lonely or isolated from th ose around you? Often 01/22/2023 Financial Resource Strain Answer Date R ecorded Do you have any trouble payi ng for your medications, or do you think you might in the future? No 01/22/2023 Does your family have troubl e paying for medicine? (Household - for ages 0-17 years) Not on file 01/22/2023 Transportation Needs Answer Date Record ed READ ONLY Do you have troubl e getting a ride to medical visits or work? Sometimes True 01/22/2023 Does your family have a hard time getting a ride to doctors visits? (Household - for ages 0-17 years) Not on file 01/22/2023 Has lack of transportation k ept you from medical appointments, meetings, work, or from getting things needed for daily living? Check all that apply. (Adult - for ages 18 years and over) Not on file 01/22/2023 Do you (or your family) have trouble finding or paying for a ride (transportation)? (Household - for ages 0-17 years) Not on file 01/22/2023 Housing Stability Answer Date Recorded Do you currently live in a s helter or have no steady place to sleep at night? Yes 01/22/2023 READ ONLY Do you think you a re at risk of becoming homeless? No 01/22/2023 Does your family worry about paying for your home or becoming homeless? (Household - for ages 0-17 years) Not on file 0 01/22/2023 Are you homeless or worried that you might be in the future? (Adult - for ages 18 years and over) Not on file Are you (or your family) chelo eless or worried that you might be in the future? (Household - for ages 0-17 years) Not on file Food Insecurity Answer Date Recorded Do you need food for this week? Yes 01/22/2023 Are you able to get enough f ood for your family? (Household - for ages 0-17 years) Not on file 01/22/2023 Does your family need food t his week? (Household - for ages 0-17 years) Not on file 01/22/2023 Do you always have enough fo od for your family? (Household - for ages 0-17 years) Not on file 01/22/2023 Comments No Sex and Gender Information Value Date Recorded Sex Assigned at Female 09/18/2021 8:15 PM EDT Legal Sex Female 5:27 AM EST Gender Identity Female 09/18/2021 8:15 PM EDT Sexual Orientation Straight 09/18/2021 8: 15 PM EDT Occupation Industry Job Start Date Job End Date Filed for disability for chr onic low back pain Not on file Not on file Not on file documented as of this encounter Plan of Treatment Upcoming Encounters Date Type Department Care Team (Late st Contact Info) Description 10/27/2024 11:40 AM EDT Office Visit [address] [phone] Janel Nicholson MD [address] [place] [address] [place] [phone] 12/15/2024 11:50 AM EDT Office Visit [address] [place] [phone] Janel Thornton DO [address] [place] [address] [place] [id number] Pending Results Name Type Priority Associated Diagnoses Date /Time BASIC METABOLIC PANEL Lab Routine Hypomagnesemia Hypokalemia 07/24/2024 12:01 PM EDT MAGNESIUM Lab Routine Hypomagnesemia Hypokalemia 07/24/2024 12:01 PM EDT PHOSPHORUS Lab Routine Hypomagnesemia 07/24/2024 12:01 PM EDT HEMOGLOBIN A1C Lab Routine HTN, goal below 130/80 Hypomagnesemia Hypokalemia Hyperlipidemia with target LDL less than 100 07/24/2024 12:01 PM EDT CBC WITH WBC DIFFERENTIAL Lab Routine HTN, goal below 130/80 Hypomagnesemia Hypokalemia 07/24/2024 12:01 PM EDT 25-HYDROXY VITAMIN D Lab Routine Vitamin D deficiency 07/24/2024 12:01 PM EDT URIC ACID Lab Routine Left foot pain 07/24/2024 12:01 PM EDT LIPID PANEL WITH DIRECT LDL IF TG IS HIGH Lab Routine Hyperlipidemia with target LDL less than 100 07/24/2024 12:01 PM EDT VITAMIN B12 Lab Routine Oral ulcer 07/24/2024 12:01 PM EDT CBC Lab Routine HTN, goal below 130/80 Hypomagnesemia Hypokalemia 07/24/2024 12:01 PM EDT DIFFERENTIAL, AUTOMATED Lab Routine HTN, goal below 130/80 Hypomagnesemia Hypokalemia 07/24/2024 12:01 PM EDT Scheduled Procedures Name Priority Associated Diagnoses Date/Ti me COLONOSCOPY FLEXIBLE PROXIMA L DIAGNOSTIC Recall Encounter for screening colonoscopy Health Maintenance Due Date Last Done Comments Hepatitis B Vaccine (1 of 3 - 19+ 3-dose series) 11/12/1983 Cologuard 2009 Fecal Occult Blood Test 2009 Sigmoidoscopy 2009 Mammogram 07/08/2021 07/08/2020, 11/2017, 08/28/2016, Additional history exists COVID-19 Vaccine ( season) 2024 Zoster Vaccines (1 of 2) 01/24/2025 Pos tponed from 2014 (Patient Declined After Education) TSH 03/18/2025 03/18/2024, 01/05, 12/25/2021, Additional history exists GFR 04/23/2025 04/23/2024, 07/2023, 03/24/2024, Additional history exists Depression Monitoring 07/24/2025 07/24/2024 DTap/Tdap Vaccines (2 - Td or Tdap) 12/06/2025 12/07/2015 Albumin/Creatinine Ratio 01/29/2026 01/29/2023, 12/05 Colonoscopy 09/03/2026 09/03/2016, 09/03/2016 Colorectal Cancer Screening 09/03/2026 Diabetes Screening 04/23/2027 04/23/2024, 1 06/08/2023, 03/24/2024, Additional history exists Lipid Panel 08/20/2028 08/21/2023, 01/05, 09/19/2021, Additional history exists Lung Cancer Screening Completed 05/11/2017 Pneumococcal Vaccine: 50+ Years Completed 12/25/2021, 05/25/2016 Influenza Vaccine (FLU shot) Completed 03/24/2024, 01/29/2023, 03/21/2022, Additional history exists HPV (Gardasil) Vaccine Aged Out No lo nger eligible based on patient's age to complete this topic MENINGOCOCCAL (MENACTRA/MENVEO) Aged Out No longer eligible based on patient's age to complete this topic Meningitis B Vaccine (Bexsero/Trumemba) Aged Out No longer eligible based on patient's age to complete this topic documented as of this encounter Medical Devices Not on filedocumented as of this encounter Visit Diagnoses Diagnosis Hypomagnesemia Disorders of magnesium metabolism Hypokalemia Hypopotassemia HTN, goal below 130/80 Unspecified essential hypertension Hyperlipidemia with target LDL less than 100 Other and unspecified hyperlipidemia Vitamin D deficiency Unspecified vitamin D deficiency Left foot pain Pain in limb Oral ulcer Other and unspecified diseases of the oral soft tissues documented in this encounter Care Teams Computer Education Teacher Relationship Specialty Start Date End Date Janel Thornton DO [address] [place] [address] [place] [id number] PCP - General Internal Medicine 05/25/16 documented as of this encounter
--- OUTSIDE RECORDS SUMMARY | 2024-08-06 07:24 | External Medical Summary | Summary of Care ---
Author Name Unknown Organization [facility] Address [address] [facility] [place] [address] Phone [phone] Care Team Providers Care Welder Experimental Name Role Phone Norberto Janel Adams Primary Care Provider [phone] Reason for Visit * Reason Comments eRx-Medication Refill Encounter Details Date Type Department Care Team (Late st Contact Info) Description 07/28/2024 Refill Family Medicine [address] [place] [address] Anne Orozco MD [address] [place] [address] [place] [phone] Allergies No known active allergiesdocumented as of this encounter (statuses as of 07/29/2024) Medications Levothyroxine Sodium 150 MCG Oral Tablet (Levoxyl)Indicatio ns:Acquired hypothyroidism TAKE 1 TABLET BY MOUTH DAILY FIRST THING IN THE MORNING AT LEAST 30MIN PRIOR TO BREAKFAST/OTHE R MEDS 90 Tablet 3 4 Active Allopurinol 300 MG Oral Tablet (Zyloprim)Indicati ons:Gout of big toe TAKE 1 TABLET BY [...] Active Atorvastatin Calcium 20 MG Oral Tablet (Lipitor)Indicatio ns:Hyperlipidemia with target LDL less than 100 Take [...] Lori ER 20 MEQ Oral Tablet Extended ReleaseIndications :Electrolyte abnormality Take 1 Tablet by mouth in the morning and 1 Tablet before bedtime. 180 Tablet 1 4 Active D 1000 25 MCG (1000 UT) Oral Capsule Take 1 Capsule by mouth in the morning. 90 Capsule 1 4 Active amLODIPine Besylate 5 MG Oral Tablet (Norvasc)Indicatio ns:HTN, goal below 130/80 Take 1 Tablet by mouth in the morning. 90 Tablet 1 5 Active Benzocaine 20 % Mouth/Throat Gel Apply small amount to oral ulcer 4x daily as needed 5.25 g 2 5 Active Magnesium Chloride 64 MG Oral Tablet Take 2 Tablets by mouth in the morning. 60 Tablet 3 5 Active dexAMETHasone 0.5 MG/5ML Oral Elixir (Decadron) 5 mL swish and spit three to four times daily. keep the medication in the mouth for five minutes prior to spitting it out. Do not rinse afterward and avoid eating or drinking for 30 minutes. 237 mL 5 Active documented as of this encounter (statuses as of 07/29/2024) Active Problems Problem Noted Date Diagnosed Date Idiopathic chronic gout of multiple sites selene kraus 01/29/2023 Hyperuricemia 12/25/2021 Overview (12/26/2021): uric acid [...] as of this encounter (statuses as of 07/29/2024) Resolved Problems Problem Noted Date Diagnosed Date [...] as of this encounter (statuses as of 07/29/2024) Immunizations Name Administration Dates Next Due Pneumococcal Conjugate Vacci ne, 20-valent ([id number]) 12/25/2021 Pneumococcal Polysaccharide PPV23 (Pneumovax) 05/25/2016 Seasonal [...] on file documented as of this encounter Miscellaneous Notes * Telephone Encounter - Jalen Estrada [facility] - 07/29/2024 1:30 PM EDTRefused Prescriptions: Disp Refills Lisinopril 20 MG Oral Tablet (Prinivil) 90 Tab*3 Sig: TAKE 1 TABLET BY MOUTH EVERY DAY IN THE MORNINGRefused By: JALEN ESTRADARecarlene for Refusal: Dose needs clarificationReason for Refusal Comment: changed to 40mg - sent 03/24/24 documented in this encounter Plan of Treatment Upcoming Encounters Date Type Department Care Team (Late st Contact Info) Description 08/07/2024 10:20 AM EDT Office Visit Podiatry [facility] [address] [place] [phone] Nadeen Toussaint DPM [address] [place] [address] [place] [address] 10/27/2024 11:40 AM EDT Office Visit Family Medicine [address] [phone] Janel Nicholson MD [address] [place] [address] [place] [phone] 12/15/2024 11:50 AM EDT Office Visit Family Medicine [address] [phone] Janel Thornton, [address] [place] [id number] Scheduled Procedures Name Priority Associated Diagnoses Date/Ti me COLONOSCOPY FLEXIBLE PROXIMA L DIAGNOSTIC Recall Encounter for screening colonoscopy Health Maintenance Due Date Last Done Comments Hepatitis B Vaccine (1 of 3 - 19+ 3-dose series) 11/12/1983 Cologuard 2009 Fecal Occult Blood Test 2009 Sigmoidoscopy 2009 Mammogram 07/08/2021 07/08/2020, 0611/2017, 08/28/2016, Additional history exists COVID-19 Vaccine ( - season) 2024 Zoster Vaccines (1 of 2) 01/24/2025 Pos tponed from 2014 (Patient Declined After Education) TSH 03/18/2025 03/18/2024, 01/05, 12/25/2021, Additional history exists Depression Monitoring 07/24/2025 07/24/2024 GFR 07/24/2025 07/24/2024, 04/05, 04/07/2024, Additional history exists DTap/Tdap Vaccines (2 - Td or Tdap) 12/06/2025 12/07/2015 Albumin/Creatinine Ratio 01/29/2026 01/29/2023, 12/05 Colonoscopy 09/03/2026 09/03/2016, 09/03/2016 Colorectal Cancer Screening 09/03/2026 Diabetes Screening 07/25/2027 07/24/2024, 0 07/24/2024, 04/23/2024, Additional history exists Lipid Panel 07/24/2029 07/24/2024, 08/04, 01/29/2023, Additional history exists Lung Cancer Screening Completed [...] Not on filedocumented as of this encounter Care Teams Welder Experimental Relationship Specialty Start Date End Date Janel Thornton DO [address] [place] [address] [place] [phone] PCP - General Internal Medicine 05/25/16 documented as of this encounter
--- OUTSIDE RECORDS SUMMARY | 2024-08-06 07:24 | External Medical Summary ---
Author Name Unknown Address Unknown Organization [id number]:LABORATORY [facility] [place] - [address] [place] [address] Laboratory Report Ordering Provider Test Date Status LEOBARDOSERA WHITE ALLISON 07/24/2024 12:01:21 Final Observation Date Value Abnormality Reference (Units ) Status Vitamin B12 07/24/2024 12:01:21 [phone] (pg/mL) Final Performing Location LABORATORY [facility] [place] - [address] [place] [address]
--- OUTSIDE RECORDS SUMMARY | 2024-08-06 07:24 | External Medical Summary ---
Author Name Unknown Address Unknown Organization [id number]:LAB[facility]ATORY [facility] [place] - [address] [place] [address] Laboratory Report Ordering Provider Test Date Status SERA BOOTH ALLISON 07/24/2024 12:01:21 Final Observation Date Value Abnormality Reference (Units ) Status LDL, (direct) 07/24/2024 12:01:21 48 <=129 (mg/dL) Final LDL Cholesterol Reference Ra nges (mg/dL):
<70 � � Target level for high risk ASCVD patient
<100 � �Optimal for general population
100-129 Near optimal for general population
130-159 Borderline high
160-189 High
>=190 � Very high Performing Location LABORATORY [facility] - [address] [place] [address]
--- OUTSIDE RECORDS SUMMARY | 2024-08-06 07:24 | External Medical Summary | Summary of Care ---
Author Name Unknown Organization [facility] Address [address] [facility] [address] Phone [phone] Care Team Providers Care Supervisor Plasma Name Role Phone Janel Thornton DO Primary Care Provider [phone] Reason for Visit * Reason Comments Re-Check Encounter Details Date Type Department Care Team (Late st Contact Info) Description 07/24/2024 11:40 AM EDT Office Visit Family Medicine [address] [phone] Janel Nicholson MD [address] [place] [address] [place] [phone] Aphthous ulcer*; Left foot pain; HTN, goal below 130/80; Hypomagnesemia; Hypokalemia; Hyperlipidemia with target LDL less than 100; Vitamin D deficiency; Screening for depression Allergies No known active allergiesdocumented as of this encounter (statuses as of 07/24/2024) Medications Levothyroxine Sodium 150 MCG Oral Tablet (Levoxyl)Indicatio ns:Acquired hypothyroidism TAKE 1 TABLET BY MOUTH DAILY FIRST THING IN THE MORNING AT LEAST 30MIN PRIOR TO BREAKFAST/OTHE R MEDS 90 Tablet 3 01/22/20 24 Active Allopurinol 300 MG Oral Tablet (Zyloprim)Indicati ons:Gout of big toe TAKE 1 TABLET BY MOUTH EVERY DAY IN THE MORNING 90 Tablet 1 02/27/20 24 Active PARoxetine HCl 10 MG Oral Tablet (pAXil) TAKE ONE TABLET BY MOUTH DAILY ALONG WITH 40MG DOSE FOR TOTAL DOSE OF 50MG 90 Tablet 3 02/26/20 24 Active PARoxetine HCl 40 MG Oral Tablet (pAXil) TAKE 1 TABLET BY MOUTH EVERY DAY IN THE MORNING, along with a 10mg, for total of 50 mg 90 Tablet 3 02/26/20 24 Active Atorvastatin Calcium 20 MG Oral Tablet (Lipitor)Indicatio ns:Hyperlipidemia with target LDL less than 100 Take 1 Tablet by mouth in the morning. 90 Tablet 3 02/26/20 24 Active Albuterol Sulfate HFA 108 (90 Base) MCG/ACT Inhalation Aerosol Solution INHALE 2 PUFFS BY MOUTH EVERY 4 HOURS NEEDED FOR COUGH OR WHEEZING 54 g 2 02/26/20 24 Active busPIRone HCl 10 MG Oral Tablet (Buspar) TAKE 1 TABLET BY MOUTH IN THE MORNING AT AT NOON AND BEFORE BEDTIME 90 Tablet 11 03/02/20 24 Active Lisinopril 40 MG Oral Tablet Take 1 Tablet by mouth in the morning. 30 Tablet 5 03/24/20 24 Active Potassium Chloride Lori ER 20 MEQ Oral Tablet Extended ReleaseIndications :Electrolyte abnormality Take 1 Tablet by mouth in the morning and 1 Tablet before bedtime. 180 Tablet 1 04/07/20 24 Active D 1000 25 MCG (1000 UT) Oral Capsule Take 1 Capsule by mouth in the morning. 90 Capsule 1 04/08/20 24 Active amLODIPine Besylate 5 MG Oral Tablet (Norvasc)Indicatio ns:HTN, goal below 130/80 Take 1 Tablet by mouth in the morning. 90 Tablet 1 07/09/19 25 Active Benzocaine 20 % Mouth/Throat Gel Apply small amount to oral ulcer 4x daily as needed 5.25 g 2 07/25/19 25 Active Magnesium Chloride 64 MG Oral Tablet Take 2 Tablets by mouth in the morning. 60 Tablet 3 07/25/19 25 Active dexAMETHasone 0.5 MG/5ML Oral Elixir (Decadron) 5 mL swish and spit three to four times daily. keep the medication in the mouth for five minutes prior to spitting it out. Do not rinse afterward and avoid eating or drinking for 30 minutes. 237 mL 07/25/19 25 Active Magnesium Chloride 64 MG Oral Tablet Take 2 Tablets by mouth in the morning. 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 01/29/2023 Hyperuricemia 12/25/2021 Overview (12/26/2021): uric acid [...] 65 Food insecurity 10/16/2021 08/21/2023 Overview: Per [facility] Protocol Severe obesity with body mas s index (BMI) of 35.0 to 39.9 with serious comorbidity 07/17/2017 Overview (02/19/2018): ICD-10 update of inactive diagnosis BMI 38.0-38.9,adult 05/25/2016 07/18/19 18 documented as of this encounter (statuses as of 07/24/2024) Immunizations Name Administration Dates Next Due Pneumococcal Conjugate Vacci ne, 20-valent ([id number]) 12/25/2021 Pneumococcal Polysaccharide PPV23 (Pneumovax) 05/25/2016 Seasonal [...] on file documented as of this encounter Last Filed Vital Signs Vital Sign Reading Time Taken Comments Blood Pressure 138/90 07/24/2024 11:35 AM EDT Pulse 112 07/24/2024 11:35 AM EDT Temperature 35.2 °C (95.3 °F) 07/24/2024 11:35 AM E DT Respiratory Rate - - Oxygen Saturation 97% 07/24/2024 11:35 AM EDT Inhaled Oxygen Concentration - - Weight 87.2 kg (192 lb 3.2 oz) 07/24/2024 11:35 AM EDT Height 171.5 cm (5' 7.5") 07/24/2024 11:35 AM ED T Body Mass Index 29.66 07/24/2024 11:35 AM EDT documented in this encounter Progress Notes * Janel Nicholson MD - 07/24/2024 11:36 AM EDT Images from the original note were not included. History of Present Illness Kia Blankenship is a 58 year old female that presents for Re-Check History of Present Illness The patient, with a history of hypertension, gout, and hypomagnesemia, presents for a follow-up visit and reports two painful mouth sores that developed over the weekend. Despite salt water rinses, the sores have not improved. The patient also reports a recent episode of hypomagnesemia-related symptoms due to a lapse in her magnesium supplement, which was resolved with a temporary [id number] supplement. The patient also reports bilateral foot pain, worse on the left, described as numbness and a sensation of a lump on the bottom of the foot. Hx of gout, is on allopurinol. The patient denies any chestpain, breathing trouble, bowel or bladder trouble. PHQ Adult 07/24/2024 11:49 Depression Screening (PHQ2_9)-Adult (Pt Reported) Little interest or pleasure in doing things Several days [1] Feeling down, depressed or hopeless Not at all [0] PHQ Adult Total Score 1 PHQ Adult Score Description No Depression Depression Screening (PHQ2) - Adult Little interest or pleasure in doing things Several days [1] Feeling down, depressed or hopeless Not at all [0] Details Proxy-reported Physical Exam BP 138/90 | Pulse 112 | Temp 95.3 °F (35.2 °C) (Infrared ) | Ht 5' 7.5" (1.715 m) | Wt 192 lb 3.2oz (87.2 kg) | SpO2 97% | BMI 29.66 kg/m² | BSA 2.04 m² Physical Exam Vitals and nursing note reviewed. Constitutional: General: She is not in acute distress. HENT: Head: Normocephalic and atraumatic. Mouth/Throat: Mouth: Mucous membranes are moist. Eyes: Extraocular Movements: Extraocular movements intact. Neck: Thyroid: No thyromegaly. Cardiovascular: Rate and Rhythm: Normal rate and regular rhythm. Pulmonary: Breath sounds: Normal breath sounds. No wheezing or rhonchi. Abdominal: General: Bowel sounds are normal. There is no distension. Palpations: Abdomen is soft. Tenderness: There is no abdominal tenderness. Musculoskeletal: General: Normal range of motion. Cervical back: Normal range of motion and neck supple. Right lower leg: No edema. Left lower leg: No edema. Lymphadenopathy: Cervical: No cervical adenopathy. Upper Body: Right upper body: No supraclavicular adenopathy. Left upper body: No supraclavicular adenopathy. Skin: General: Skin is warm and dry. Findings: No lesion or rash. Neurological: General: No focal deficit present. Mental Status: She is alert and oriented to person, place, and time. Psychiatric: Mood and Affect: Mood normal. Behavior: Behavior normal. Assessment and Plan Assessment & Plan Oral Ulcers She has two oral ulcers, one of which is painful. Salt water rinses have been ineffective, and no medication-related cause has been identified. Order a B12 level, prescribe numbing gel, and advise continuation of salt water rinses. Magnesium Deficiency /hypokalemia Symptoms have improved with resumed magnesium supplementation. Recheck magnesium levels for adequacy and ensure the magnesium prescription is refilled. Gout She experiences bilateral foot pain, with the left foot more affected. Previous uric acid levels were controlled. Order a uric acid level. Hypertension Her blood pressure is well-controlled with the current regimen. Continue to monitor blood pressure. General Health Maintenance She declined the shingles vaccine, and her preference is acknowledged. Discuss the shingles vaccinein future visits. Aphthous ulcer Left foot pain - URIC ACID; Future HTN, goal below 130/80 - BASIC METABOLIC PANEL; Future - HEMOGLOBIN A1C; Future - CBC WITH WBC DIFFERENTIAL; Future Hypomagnesemia - MAGNESIUM; Future - PHOSPHORUS; Future - BASIC METABOLIC PANEL; Future - HEMOGLOBIN A1C; Future - CBC WITH WBC DIFFERENTIAL; Future Hypokalemia - BASIC METABOLIC PANEL; Future - HEMOGLOBIN A1C; Future - CBC WITH WBC DIFFERENTIAL; Future Hyperlipidemia with target LDL less than 100 On atorvastatin, to continue. Check lipids. - HEMOGLOBIN A1C; Future - LIPID PANEL WITH DIRECT LDL IF TG IS HIGH; Future Vitamin D deficiency Check level, continue supplement at this time - 25-HYDROXY VITAMIN D; Future Screening for depression Neg today - DEPRESSION SCREENING PERFORMED Wrap-Up Follow Up: Return in about 3 months (around 10/24/2024). Time: I spent a total of 30-39 minutes (exact time 30 mins) on the date of service in preparation, delivery, and documentation of the care provided to Kia Blankenship excluding any time spent in the performance of separately billed services. Text in this note was generated using an PWA documentation service. I discussed the use of a device to record and summarize our discussion today. All persons present during the encounter consented to its use. documented in this encounter Nursing Notes * Donna Sanz CMA - 07/24/2024 11:35 AM EDT 3 month f/u Pt reports has 2 sores in her mouth appeared over this past weekend. Did try some salt water mouth rises with no help. documented in this encounter Plan of Treatment Upcoming Encounters Date Type Department Care Team (Late st Contact Info) Description 10/27/2024 11:40 AM EDT Office Visit [address] [phone] Janel Nicholson MD [address] [place] [address] [place] [phone] 12/15/2024 11:50 AM EDT Office Visit [address] [place] [phone] Janel Thornton DO [address] [place] [address] [place] [id number] Pending Results Name Type Priority Associated Diagnoses Date /Time PHOSPHORUS Lab Routine Hypomagnesemia 07/24/2024 12:01 PM [...] Routine Oral ulcer 07/24/2024 12:01 PM EDT Scheduled Orders Name Type Priority Associated Diagnoses Orde r Schedule PHOSPHORUS Lab Routine Hypomagnesemia Expected: 07/24/2024 (Approximate), Expires: 07/24/2025 HEMOGLOBIN A1C Lab Routine HTN, goal below 130/80 Hypomagnesemia Hypokalemia Hyperlipidemia with target LDL less than 100 Expected: 07/24/2024 (Approximate), Expires: 07/24/2025 CBC WITH WBC DIFFERENTIAL Lab Routine HTN, goal below 130/80 Hypomagnesemia Hypokalemia Expected: 07/24/2024 (Approximate), Expires: 07/24/2025 25-HYDROXY VITAMIN D Lab Routine Vitamin D deficiency Expected: 07/24/2024 (Approximate), Expires: 07/24/2025 URIC ACID Lab Routine Left foot pain Expected: 07/24/2024 (Approximate), Expires: 07/24/2025 LIPID PANEL WITH DIRECT LDL IF TG IS HIGH Lab Routine Hyperlipidemia with target LDL less than 100 Expected: 07/24/2024 (Approximate), Expires: 07/24/2025 VITAMIN B12 Lab Routine Expected: (Approximate), Expires: 07/24/2025 Scheduled Procedures Name Priority Associated Diagnoses Date/Ti [...] as of this encounter Visit Diagnoses Diagnosis Aphthous ulcer- Primary Oral aphthae Left foot pain Pain in limb HTN, goal below 130/80 Unspecified essential hypertension Hypomagnesemia Disorders of magnesium metabolism Hypokalemia Hypopotassemia Hyperlipidemia with target LDL less than 100 Other and unspecified hyperlipidemia Vitamin D deficiency Unspecified vitamin D deficiency Screening for depression documented in this encounter Care Teams Supervisor Plasma Relationship Specialty Start Date End Date Janel Thornton DO [address] [place] [address] [place] [id number] PCP - General Internal Medicine 05/25/16 documented as of this encounter
--- OUTSIDE RECORDS SUMMARY | 2024-08-06 07:24 | External Medical Summary ---
Author Name Unknown Address Unknown Organization [id number]:LABORATORY [place] [address] [facility] [address] Laboratory Report Ordering Provider Test Date Status SERA BOOTH 07/24/2024 12:01:21 Final Observation Date Value Abnormality Reference (Units ) Status WBC, Total 07/24/2024 12:01: 12.99 Above high normal 4.00-10.80 (K/uL) Final RBC 07/24/2024 12:01: 4.26 3.85-5.15 (M/uL) Final Hemoglobin 07/24/2024 12:01: 12.6 12.0-15.3 (g/dL) Final HCT 07/24/2024 12:01: 38.6 36.0-45.2 (%) Final MCV 07/24/2024 12:01:21 90.6 81.5-97.5 (fL) Final MCH 07/24/2024 12:01:21 29.6 27.0-34.0 (pg) Final MCHC 07/24/2024 12:01:21 32.6 32.0-36.0 (g/dL) Final RDW 07/24/2024 12:01:21 13.2 11.5-15.5 (%) Final Platelets 07/24/2024 12:01: 459 Above high normal 140-400 (K/uL) Final MPV 07/24/2024 12:01:21 10.4 6.6-11.1 (fL) Final Nucleated erythrocytes/100 leukocytes [Ratio] in Blood by Automated count 07/24/2024 12:01:21 0 <=0 (/100 WBCs) Final Performing Location LABORATORY [facility] [place] - [facility] [place] [address]
--- OUTSIDE RECORDS SUMMARY | 2024-08-06 07:24 | External Medical Summary ---
Author Name Unknown Address Unknown Organization [id number]:[facility] - [address] [place] [address] Laboratory Report Ordering Provider Test Date Status SERA BOOTH SEIFERT 07/24/2024 12:01:21 Final Observation Date Value Abnormality Reference (Units ) Status Magnesium 07/24/2024 12:01:21 1.9 1.5-2.6 (m g/dL) Final Performing Location [facility] - [address] [place] [address]
--- OUTSIDE RECORDS SUMMARY | 2024-08-06 07:24 | External Medical Summary ---
Author Name Unknown Address Unknown Organization [id number]:LABORATORY [facility] [place] - [address] [place] [address] Laboratory Report Ordering Provider Test Date Status SERA BOOTH SEIFERT 07/24/2024 12:01:21 Final Observation Date Value Abnormality Reference (Units ) Status Uric Acid 07/24/2024 12:01:21 5.8 Above high normal 2. 4-5.7 (mg/dL) Final Performing Location LABORATORY [facility] [place] - [address] [place] [address]
--- OUTSIDE RECORDS SUMMARY | 2024-08-06 07:24 | External Medical Summary ---
Author Name Unknown Address Unknown Organization [id number]:LABORATORY [facility] [place] - [address] [place] [address] Laboratory Report Ordering Provider Test Date Status SERA BOOTH ALLISON 07/24/2024 12:01:21 Final Deficient: <20 ng/mL
Ins ufficient: 20-29 ng/mL
Recommended/Optimum:30-50 ng/mL

Vitamin D intoxication is rare. If suspicious of Vitamin D toxicity, evaluation of serum Calcium and PTH is recommended. Observation Date Value Abnormality Reference (Units ) Status 25-OH Vitamin D total 07/24/2024 12:01:21 14 Below low normal >19 (ng/mL) Final Performing Location LABORATORY [facility] [place] - [address] [place] [address]
--- OUTSIDE RECORDS SUMMARY | 2024-08-06 07:24 | External Medical Summary ---
Author Name Unknown Address Unknown Organization [id number]:LABORATORY [facility] [place] - [facility] [address] [place] [address] Laboratory Report Ordering Provider Test Date Status SERA BOOTH 07/24/2024 12:01:21 Final Observation Date Value Abnormality Reference (Units ) Status BUN 07/24/2024 12:01:21 13 6-20 (mg/dL) Final Creatinine 07/24/2024 12:01:21 1.4 Above high normal 0.5-1.0 (mg/dL) Final Glomerular filtration rate/1.73 sq M.predicted [Volume Rate/Area] in Serum, Plasma or Blood by Creatinine-based formula (CKD-EPI) 07/24/2024 12:01:21 42 Below low normal >=60 (mL/min) Final eGFR is calculated based on the CKD-EPI 2020 equation. Sodium 07/24/2024 12:01:21 137 135-146 (m mol/L) Final Potassium 07/24/2024 12:01:21 4.1 3.5-5.1 (m mol/L) Final Cl 07/24/2024 12:01:21 98 98-107 (mm ol/L) Final CO2 07/24/2024 12:01:21 24 22-32 (mmo l/L) Final Anion gap 07/24/2024 12:01:21 15 7-15 (mmol /L) Final Glucose 07/24/2024 12:01:21 99 70-120 (mg /dL) Final Calcium 07/24/2024 12:01:21 9.1 8.4-10.2 ( mg/dL) Final Performing Location LABORATORY [facility] [place] - [facility] [place] [address] [place] [address]
--- OUTSIDE RECORDS SUMMARY | 2024-08-06 07:24 | External Medical Summary ---
Author Name Unknown Address Unknown Organization [id number]:LABORATORY [facility] [place] - [address] [facility] [address] [address] [place] [address] Laboratory Report Ordering Provider Test Date Status SERA BOOTH 07/24/2024 12:01:21 Final Observation Date Value Abnormality Reference (Units ) Status SYNC LEUKOCYTES IN BLOOD BY AUTOMATED COUNT 07/24/2024 12:01:21 12.99 Above high normal 4.00-10.80 (K/uL) Final Segs 07/24/2024 12:01:21 61.2 40.0-75.0 (%) Final Lymphs % 07/24/2024 12:01:21 32.7 18.0-42.0 (%) Final Monos 07/24/2024 12:01:21 3.8 1.0-11.0 (%) Final Eosinophils 07/24/2024 12:01:21 1.3 0.0-6.0 (%) Final Basos 07/24/2024 12:01:21 0.4 0.0-2.0 (%) Final Immature Granulocyte, Percent 07/24/2024 12:01:21 0.6 0.0-2.0 (%) Final Absolute Segs 07/24/2024 12:01:21 7.94 Above high normal 1.80-7.70 (K/uL) Final Lymphs, absolute 07/24/2024 12:01:21 4.25 1.00-4.80 (K/ul) Final Monos, Abs 07/24/2024 12:01:21 0.50 0.00-1.10 (K/uL) Final Eos, Abs 07/24/2024 12:01:21 0.17 0.00-0.70 (K/uL) Final Basos, Abs 07/24/2024 12:01:21 0.05 0.00-0.20 (K/uL) Final Immature Granulocytes, Number 07/24/2024 12:01:21 0.08 0.00-0.20 (K/uL) Final Performing Location LABORATORY [facility] [place] - [address] [facility] [address]
--- OUTSIDE RECORDS SUMMARY | 2024-08-06 07:24 | External Medical Summary ---
Author Name Unknown Address Unknown Organization [id number]:LABORATORY [facility] [place] - [address] [place] [address] Laboratory Report Ordering Provider Test Date Status SERA BOOTH SEIFERT 07/24/2024 12:01:21 Final Observation Date Value Abnormality Reference (Units ) Status HbA1C 07/24/2024 12:01:21 5.6 4.0-5.6 (% ) Final The use of HbA1c to monitor glycemic status is based on normal hemoglobin and HbA composition. This test should not be used in patients with abnormal hemoglobin that affects the half life of the red blood cell or the in vivo glycation rates. Glucose, estimated average 07/24/2024 12:01:21 114 <126 (mg/dL) Final Performing Location LABORATORY [facility] [place] - [address] [place] [address]
--- OUTSIDE RECORDS SUMMARY | 2024-08-06 07:25 | External Medical Summary | Summary of Care ---
Author Name Unknown Organization [facility] Address [address] [address] Phone [phone] Care Team Providers Care Hat Finisher Name Role Phone Janel Thornton DO Primary Care Provider [phone] Reason for Visit * Reason Onset Date Comments Medication Refill 07/10/2024 Encounter Details Date Type Department Care Team (Late st Contact Info) Description 07/10/2024 Refill Family Medicine [address] [phone] Janel Nicholson MD [address] [place] [address] [place] [phone] Allergies No known active allergiesdocumented as of this encounter (statuses as of 07/13/2024) Medications Levothyroxine Sodium 150 MCG Oral Tablet [...] the morning. 90 Capsule 1 4 Active Magnesium Chloride 64 MG Oral Tablet Take 2 Tablets by mouth in the morning. 60 Tablet 3 4 Active amLODIPine Besylate 5 MG Oral Tablet (Norvasc)Indication s:HTN, goal below 130/80 Take 1 Tablet by mouth in the morning. 90 Tablet 1 5 Active documented as of this encounter (statuses as of 07/13/2024) Active Problems Problem Noted Date Diagnosed Date Idiopathic chronic gout of multiple sites selene kraus 01/29/2023 Hyperuricemia 12/25/2021 Overview (12/26/2021): uric acid 10.4 Primary osteoarthritis of both knees 03/08/2020 Overview (03/08/2020): Left is worse Severe obesity with body mas s index (BMI) of 35.0 to 39.9 with serious comorbidity 07/17/2017 Overview (02/19/2018): ICD-10 update of inactive diagnosis Benign neoplasm of skin of right external [...] as of this encounter (statuses as of 07/13/2024) Resolved Problems Problem Noted Date Diagnosed Date Resolved Date Chronic kidney disease, stage 3a 07/10/2022 07/18/2022 CKD (chronic kidney disease), stage II 12/25/2021 08/21/2023 Overview (12/26/2021): EGFR 65 Food insecurity 10/16/2021 08/21/2023 Overview: Per [facility] Protocol BMI 38.0-38.9,adult 05/25/2016 07/18/19 documented as of this encounter (statuses as of 07/13/2024) Immunizations Name Administration Dates Next Due Pneumococcal Conjugate Vacci ne, 20-valent ([id number]) 12/25/2021 Pneumococcal Polysaccharide PPV23 (Pneumovax) 05/25/2016 Seasonal [...] pur e alcohol) PHQ-2 Answer Date Recorded PHQ-2 Score 9 03/08/2020 Hunger Vital Sign Answer Date Recorded Within [...] encounter Miscellaneous Notes * Telephone Encounter - Amada Barroso [facility] - 07/13/2024 6:30 AM EDT Refused Prescriptions: Disp Refills Magnesium Chloride 64 MG Oral Tablet 60 Tab*3 Sig: Take 2 Tablets by mouth in the morning.Refused By: AMADA BARROSOason for Refusal: Too soon documented in this encounter Plan of Treatment Upcoming Encounters Date Type Department Care Team (Late st Contact Info) Description 07/24/2024 11:40 AM EDT Office Visit Family [address] [phone] Janel Nicholson MD [address] [place] [address] [place] [phone] 12/15/2024 11:50 AM EDT Office Visit [address] [phone] Janel Thornton DO [address] [place] [address] [place] [id number] Scheduled Procedures Name Priority Associated Diagnoses Date/Ti me COLONOSCOPY FLEXIBLE PROXIMA L DIAGNOSTIC Recall Encounter for screening colonoscopy Health Maintenance Due Date Last Done Comments Hepatitis B Vaccine (1 of 3 - 19+ 3-dose series) 11/12/1983 Cologuard 2009 Fecal Occult Blood Test 2009 Sigmoidoscopy 2009 Zoster Vaccines (1 of 2) 2014 Depression Monitoring 03/08/2021 03/08/2020 Mammogram 07/08/2021 07/08/2020, 11/2017, 08/28/2016, Additional history exists COVID-19 Vaccine ( season) 2024 TSH 03/18/2025 03/18/2024, 01/05, 12/25/2021, Additional history exists GFR 04/23/2025 04/23/2024, 07/2023, 03/24/2024, Additional history exists DTap/Tdap Vaccines (2 - Td or Tdap) 12/06/2025 12/07/2015 Albumin/Creatinine Ratio 01/29/2026 01/29/2023, 12/05 Colonoscopy 09/03/2026 09/03/2016, 09/03/2016 Colorectal Cancer Screening 09/03/2026 Diabetes Screening 04/23/2027 04/23/2024, 1 06/08/2023, 03/24/2024, Additional history exists Lipid Panel 08/20/2028 08/21/2023, 01/05, 09/19/2021, Additional history exists Lung Cancer Screening Completed 05/11/2017 Pneumococcal Vaccine: 50+ Years Completed 12/25/2021, 05/25/2016 Influenza Vaccine (FLU shot) Completed , 01/29/2023, 01/29/2023, Additional history exists HPV (Gardasil) Vaccine Aged [...] filedocumented as of this encounter Care Teams Hat Finisher Relationship Specialty Start Date End Date Janel Thornton DO [address] [place] [address] [place] [id number] PCP - General Internal Medicine 05/25/16 documented as of this encounter
--- OUTSIDE RECORDS SUMMARY | 2024-08-06 07:25 | External Medical Summary | Summary of Care ---
Author Name Unknown Organization [facility] Address [address] [facility] [address] Phone [phone] Care Team Providers Care Human Resources Hr Generalist Name Role Phone Leobardo Thornton DO Primary Care Provider [phone] Reason for Visit * Reason Comments Re-Check Encounter Details Date Type Department Care Team (Late st Contact Info) Description 04/24/2024 11:40 AM EST Office Visit Family Medicine [address] [phone] Leobardo Nicholson MD [address] [place] [address] [place] [phone] Hypomagnesemia*; Hypokalemia Allergies No known active allergiesdocumented as of this encounter (statuses as of 04/24/2024) Medications Levothyroxine Sodium 150 MCG Oral Tablet (Levoxyl)Indicatio ns:Acquired hypothyroidism TAKE 1 TABLET BY MOUTH DAILY FIRST THING IN THE MORNING AT LEAST 30MIN PRIOR TO BREAKFAST/O THER MEDS 90 Tablet 3 01/22/20 24 Active [...] morning. 30 Tablet 5 03/24/20 24 Active amLODIPine Besylate 5 MG Oral Tablet (Norvasc)Indicatio ns:HTN, goal below 130/80 Take 1 Tablet by mouth in the morning. 90 Tablet 1 04/07/20 24 Active Potassium Chloride Lori ER 20 MEQ Oral Tablet Extended ReleaseIndications :Electrolyte abnormality Take 1 Tablet by mouth in the morning and 1 Tablet before bedtime. 180 Tablet 1 04/07/20 24 Active D 1000 25 MCG (1000 UT) Oral Capsule Take 1 Capsule by mouth in the morning. 90 Capsule 1 04/08/20 24 Active Magnesium Chloride 64 MG Oral Tablet Take 2 Tablets by mouth in the morning. 60 Tablet 3 04/24/20 24 Active Magnesium Oxide -Mg Supplement 400 (240 Mg) MG Oral Tablet (Mag-Ox)Indication s:Electrolyte abnormality Take 2 Tablets by mouth in the morning and 2 Tablets before bedtime. 120 Tablet 1 04/10/20 24 024 Discontinued Magnesium Citrate 100 MG Oral Tablet Chewable Take 200 mg by mouth in the morning. 60 Tablet 3 04/24/20 24 024 Discontinued documented as of this encounter (statuses as of 04/24/2024) Active Problems Problem Noted Date Diagnosed Date [...] as of this encounter (statuses as of 04/24/2024) Resolved Problems Problem Noted Date Diagnosed Date Resolved Date Chronic kidney disease, stage 3a 07/10/2022 07/18/2022 CKD (chronic kidney disease), stage II 12/25/2021 08/21/2023 Overview (12/26/2021): EGFR 65 Food insecurity 10/16/2021 08/21/2023 Overview: Per [facility] Protocol BMI 38.0-38.9,adult 05/25/2016 07/18/19 18 documented as of this encounter (statuses as of 04/24/2024) Immunizations Name Administration Dates Next Due Pneumococcal Conjugate Vacci ne, 20-valent ([id number]) 12/25/2021 Pneumococcal Polysaccharide PPV23 (Pneumovax) 05/25/2016 Seasonal [...] Day Cigarettes 1 32 Smokeless Tobacco: Never Tobacco Cessation:Ready to Q uit: Not Asked; Counseling Given: Not Answered Alcohol Use Standard Drinks/Week Comments No 0 [...] Sign Reading Time Taken Comments Blood Pressure 136/86 04/24/2024 11:32 AM EST Pulse 109 04/24/2024 11:32 AM EST Temperature 35.9 °C (96.7 °F) 04/24/2024 1 1:32 AM EST Respiratory Rate - - Oxygen Saturation 97% 04/24/2024 11: 32 AM EST Inhaled Oxygen Concentration - - Weight 95.1 kg (209 lb 11.2 oz) 024 11:32 AM EST Height 171.5 cm (5' 7.5") 04/24/2024 11 :32 AM EST Body Mass Index 32.36 04/24/2024 11:32 AM EST documented in this encounter Progress Notes * Suyapa Saucedo, Leobardo Amado MD - 04/24/2024 11:38 AM EST Images from the original note were not included. History of Present Illness Kia Blankenship is a 58 year old female that presents for Re-Check Had an episode on Saturday this week for about 20 mins. Mag improved from 0.8 to 1.3 yesterday. Is taking mag oxide 2 tabs twice daily. K level is better. Cr at baseline. Drinking water, eating well. Physical Exam BP 136/86 | Pulse 109 | Temp 96.7 °F (35.9 °C) (Tympanic) | Ht 5' 7.5" (1.715 m) | Wt 209 lb 11.2oz (95.1 kg) | SpO2 97% | BMI 32.36 kg/m² | BSA 2.13 m² I have reviewed most recent labs BMP results Recent Labs Units 04/23/24 1026 04/07/24 1139 03/24/24 1502 SODIUM - [facility] mmol/L 141 143 141 POTASSIUM - [facility] mmol/L 3.6 3.8 3.2* CHLORIDE - [facility] mmol/L 100 101 101 CO2 - [facility] mmol/L 24 26 27 CREATININE - [facility] mg/dL 1.2* 1.0 0.9 BUN - [facility] mg/dL 9 12 8 Mg 1.3 Assessment and Plan Hypomagnesemia; Hypokalemia Initially thought to be related to her acute diarrhea, but magnesium level remains on the low side.Will try mag chloride to see if it helps more as it is slower released. Recheck levels in 1-2 weeks. No meds that would typically cause it. Consider Nephro referral if levels remain low. Encouraged hydration and healthy diet as well. - BASIC METABOLIC PANEL; Future - MAGNESIUM; Future Wrap-Up Follow Up: Return in about 3 months (around 07/23/2024). Time: I spent a total of 20-29 minutes (exact time 21 mins) on the date of service in preparation, delivery, and documentation of the care provided to Kia Blankenship excluding any time spent in the performance of separately billed services. documented in this encounter Nursing Notes * Donna Sanz CMA - 04/24/2024 11:36 AM EST 2 week f/u. Pt has no new complaints since SHAN documented in this encounter Miscellaneous Notes * Addendum Note - Leobardo Nicholson MD - 04/24/2024 12:03 PM EST Addended by: LEOBARDO NICHOLSON on: 04/24/2024 12:03 PM Modules accepted: Orders documented in this encounter Plan of Treatment Upcoming Encounters Date Type Department Care Team (Late st Contact Info) Description 07/24/2024 11:40 AM EDT Office Visit [address] [place] [phone] Leobardo Nicholson MD [address] [place] [address] [place] [phone] 12/15/2024 11:50 AM EDT Office Visit [address] [place] [phone] Leobardo Thornton DO [address] [place] [address] [place] [phone] Scheduled Orders Name Type Priority Associated Diagnoses Orde r Schedule BASIC METABOLIC PANEL Lab Routine Hypomagnesemia Hypokalemia Expected: 05/08/2024 (Approximate), Expires: 04/24/2025 MAGNESIUM Lab Routine Hypomagnesemia Hypokalemia Expected: 05/08/2024 (Approximate), Expires: 04/24/2025 Scheduled Procedures Name Priority Associated Diagnoses Date/Ti [...] Additional history exists COVID-19 Vaccine ( - 2023- season) 2024 *NEPHROLOGY REFERRAL DUE TO RESISTANT HTN 04/09/2024 TSH 03/18/2025 03/18/2024, 01/05, 12/25/2021, Additional history exists GFR 04/23/2025 04/23/2024, 1207/2023, 03/24/2024, Additional history exists DTap/Tdap Vaccines (2 - Td or Tdap) 12/06/2025 12/07/2015 Albumin/Creatinine Ratio 01/29/2026 01/29/2023, 12/05 Colonoscopy 09/03/2026 09/03/2016, 09/03/2016 Colorectal Cancer Screening 09/03/2026 Diabetes Screening 04/23/2027 04/23/2024, 1 06/08/2023, 03/24/2024, Additional history exists Lipid Panel 08/20/2028 08/21/2023, 01/05, 09/19/2021, Additional history exists Lung Cancer Screening Completed 05/11/2017 Pneumococcal Vaccine: Pediatrics (0 to 5 Years) and At-Risk Patients (6 to 64 Years) Completed 12/25/2021, 05/25/2016 Influenza Vaccine (FLU shot) Completed , 01/29/2023, 01/29/2023, Additional history exists HPV (Gardasil) Vaccine Aged Out No lo nger eligible based on patient's age to complete this topic MENINGOCOCCAL (MENACTRA/MENVEO) Aged Out No longer eligible based on patient's age to complete this topic documented as of this encounter Medical Devices Not on filedocumented as of this encounter Visit Diagnoses Diagnosis Hypomagnesemia- Primary Disorders of magnesium metabolism Hypokalemia Hypopotassemia documented in this encounter Care Teams Human Resources Hr Generalist Relationship Specialty Start Date End Date Leobardo Thornton DO [address] [place] [address] [place] [address] PCP - General Internal Medicine 05/25/16 documented as of this encounter
--- OUTSIDE RECORDS SUMMARY | 2024-08-06 07:25 | External Medical Summary ---
Author Name Unknown Address Unknown Organization K01:[facility] [address] [place] [address] Laboratory Report Ordering Provider Test Date Status SERA BOOTH ALLISON 07/24/2024 12:01:21 Final Observation Date Value Abnormality Reference (Units ) Status Phosphate 07/24/2024 12:01:21 4.0 2.5-4.8 (m g/dL) Final Performing Location [facility] [address] [place] [address]
--- OUTSIDE RECORDS SUMMARY | 2024-08-06 07:25 | External Medical Summary | Summary of Care ---
Author Name Unknown Organization [facility] Address [address] [facility] [place] [address] Phone [phone] Care Team Providers Care Digital Account Executive Name Role Phone Norberto Janel Adams Primary Care Provider [phone] Reason for Visit * Reason Comments eRx-Medication Refill Encounter Details Date Type Department Care Team (Late st Contact Info) Description 04/16/2024 Refill Family Medicine [address] [place] [address] Anne Orozco MD [address] [place] [address] [place] [id number] HTN, goal below 130/80 Allergies No known active allergiesdocumented as of this encounter (statuses as of 04/17/2024) Medications Levothyroxine Sodium 150 MCG Oral Tablet [...] the morning. 30 Tablet 5 4 Active amLODIPine Besylate 5 MG Oral Tablet (Norvasc)Indication s:HTN, goal below 130/80 Take 1 Tablet by mouth in the morning. 90 Tablet 1 4 Active Potassium Chloride Lori ER 20 MEQ Oral Tablet Extended ReleaseIndications: Electrolyte abnormality Take 1 Tablet by mouth in the morning and 1 Tablet before bedtime. 180 Tablet 1 4 Active D 1000 25 MCG (1000 UT) Oral Capsule Take 1 Capsule by mouth in the morning. 90 Capsule 1 4 Active Magnesium Oxide -Mg Supplement 400 (240 Mg) MG Oral Tablet (Mag-Ox)Indications :Electrolyte abnormality Take 2 Tablets by mouth in the morning and 2 Tablets before bedtime. 120 Tablet 1 4 Active documented as of this encounter (statuses as of 04/17/2024) Active Problems Problem Noted Date Diagnosed Date [...] as of this encounter (statuses as of 04/17/2024) Resolved Problems Problem Noted Date Diagnosed Date Resolved Date Chronic kidney disease, stage 3a 07/10/2022 07/18/2022 CKD (chronic kidney disease), stage II 12/25/2021 08/21/2023 Overview (12/26/2021): EGFR 65 Food insecurity 10/16/2021 08/21/2023 Overview: Per [facility] Protocol BMI 38.0-38.9,adult 05/25/2016 07/18/19 documented as of this encounter (statuses as of 04/17/2024) Immunizations Name Administration Dates Next Due Pneumococcal Conjugate Vacci ne, 20-valent ([id number]) 12/25/2021 Pneumococcal Polysaccharide PPV23 (Pneumovax) 05/25/2016 Seasonal [...] encounter Miscellaneous Notes * Telephone Encounter - Nikki Romero RPh - 04/17/2024 2:51 PM ESTRefused Prescriptions: Disp Refills Lisinopril 20 MG Oral Tablet (Prinivil) 90 Tab*3 Sig: TAKE 1 TABLET BY MOUTH EVERY DAY IN THE MORNINGRefused By: Nidia ROMERO for Refusal: Refill Not Appropri ate documented in this encounter Plan of Treatment Upcoming Encounters Date Type Department Care Team (Late st Contact Info) Description 04/21/2024 11:40 AM EST Office Visit [address] [place] [phone] Janel Nicholson MD [address] [place] [address] [place] [phone] 12/15/2024 11:50 AM EDT Office Visit [address] [place] [phone] Janel Thornton DO [address] [place] [address] [place] [id number] Scheduled Procedures Name Priority Associated Diagnoses Date/Ti me COLONOSCOPY FLEXIBLE PROXIMA L DIAGNOSTIC Recall Encounter for screening colonoscopy Health Maintenance Due Date Last Done Comments Hepatitis B Vaccine (1 of 3 - 19+ 3-dose series) 11/12/1983 Cologuard 2009 Fecal Occult Blood Test 2009 Sigmoidoscopy 2009 Zoster Vaccines (1 of 2) 2014 Depression Monitoring 03/08/2021 03/08/2020 Mammogram 07/08/2021 07/08/2020, 06/0 11/2017, 08/28/2016, Additional history exists COVID-19 Vaccine ( season) 2024 *NEPHROLOGY REFERRAL DUE TO RESISTANT HTN 04/09/2024 TSH 03/18/2025 03/18/2024, 01/05, 12/25/2021, Additional history exists GFR 04/07/2025 04/07/2024, 03/06, 03/18/2024, Additional history exists DTap/Tdap Vaccines (2 - Td or Tdap) 12/06/2025 12/07/2015 Albumin/Creatinine Ratio 01/29/2026 01/29/2023, 12/05 Colonoscopy 09/03/2026 09/03/2016, 09/03/2016 Colorectal Cancer Screening 09/03/2026 Diabetes Screening 04/07/2027 04/07/2024, 1 05/24/2023, 03/18/2024, Additional history exists Lipid Panel 08/20/2028 08/21/2023, [...] as of this encounter Visit Diagnoses Diagnosis HTN, goal below 130/80 Unspecified essential hypertension documented in this encounter Care Teams Digital Account Executive Relationship Specialty Start Date End Date Janel Thornton DO [address] [place] [address] [place] [address] PCP - General Internal Medicine 05/25/16 documented as of this encounter
--- OUTSIDE RECORDS SUMMARY | 2024-08-06 07:25 | External Medical Summary | Summary of Care ---
Author Name Unknown Organization [facility] Address [address] [facility] [place] [address] Phone [phone] Care Team Providers Care Ms Access Database Developer Name Role Phone Janel Thornton DO Primary Care Provider [phone] Encounter Details Date Type Department Care Team (Late st Contact Info) Description 04/10/2024 Orders Only PATIENT PORTAL DO NOT DELETE THIS DEPT USED BY [place] [id number] Allergies No known active allergiesdocumented as of this encounter (statuses as of 04/10/2024) Medications Levothyroxine Sodium 150 MCG Oral Tablet [...] before bedtime. 180 Tablet 1 4 Active Magnesium Oxide -Mg Supplement 400 (240 Mg) MG Oral Tablet (Mag-Ox)Indications :Electrolyte abnormality Take 1 Tablet by mouth in the morning and 1 Tablet before bedtime. X 30 days. 120 Tablet 4 Active D 1000 25 MCG (1000 UT) Oral Capsule Take 1 Capsule by mouth in the morning. 90 Capsule 1 4 Active documented as of this encounter (statuses as of 04/10/2024) Active Problems Problem Noted Date Diagnosed Date [...] as of this encounter (statuses as of 04/10/2024) Resolved Problems Problem Noted Date Diagnosed Date Resolved Date Chronic kidney disease, stage 3a 07/10/2022 07/18/2022 CKD (chronic kidney disease), stage II 12/25/2021 08/21/2023 Overview (12/26/2021): EGFR 65 Food insecurity 10/16/2021 08/21/2023 Overview: Per [facility] Protocol BMI 38.0-38.9,adult 05/25/2016 07/18/19 documented as of this encounter (statuses as of 04/10/2024) Immunizations Name Administration Dates Next Due Pneumococcal Conjugate Vacci ne, 20-valent ([id number]) 12/25/2021 Pneumococcal Polysaccharide PPV23 (Pneumovax) 05/25/2016 Seasonal [...] Care Team (Late st Contact Info) Description 04/17/2024 11:00 AM EST Imaging Radiology [address] [place] [id number] 04/21/2024 11:40 AM EST Office Visit [address] [place] [phone] Janel Nicholson MD [address] [place] [address] [place] [phone] 12/15/2024 11:50 AM EDT Office Visit [address] [place] [phone] Janel Thornton DO [address] [place] [address] [place] [address] Scheduled Procedures Name Priority Associated Diagnoses Date/Ti [...] filedocumented as of this encounter Care Teams Ms Access Database Developer Relationship Specialty Start Date End Date Janel Thornton DO [address] [place] [address] [place] [address] PCP - General Internal Medicine 05/25/16 documented as of this encounter
--- OUTSIDE RECORDS SUMMARY | 2024-08-06 07:25 | External Medical Summary | Summary of Care ---
Author Name Unknown Organization [facility] Address [address] [facility] [place] [address] Phone [phone] Care Team Providers Care Telesales Consultant Name Role Phone Janel Thornton DO Primary Care Provider [phone] Encounter Details Date Type Department Care Team (Late st Contact Info) Description 04/28/2024 Orders Only PATIENT PORTAL DO NOT DELETE THIS DEPT USED BY [place] [id number] Allergies No known active allergiesdocumented as of this encounter (statuses as of 04/28/2024) Medications Levothyroxine Sodium 150 MCG Oral Tablet [...] the morning. 60 Tablet 3 4 Active documented as of this encounter (statuses as of 04/28/2024) Active Problems Problem Noted Date Diagnosed Date [...] as of this encounter (statuses as of 04/28/2024) Resolved Problems Problem Noted Date Diagnosed Date Resolved Date Chronic kidney disease, stage 3a 07/10/2022 07/18/2022 CKD (chronic kidney disease), stage II 12/25/2021 08/21/2023 Overview (12/26/2021): EGFR 65 Food insecurity 10/16/2021 08/21/2023 Overview: Per [facility] Protocol BMI 38.0-38.9,adult 05/25/2016 07/18/19 18 documented as of this encounter (statuses as of 04/28/2024) Immunizations Name Administration Dates Next Due Pneumococcal Conjugate Vacci ne, 20-valent ([id number]) 12/25/2021 Pneumococcal Polysaccharide PPV23 (Pneumovax) 05/25/2016 Seasonal [...] Description 07/24/2024 11:40 AM EDT Office Visit [address] [place] [phone] Janel Nicholson MD [address] [place] [address] [place] [phone] 12/15/2024 11:50 AM EDT Office Visit [address] [place] [phone] Janel Thornton DO [address] [place] [address] [place] [address] Scheduled Procedures Name Priority Associated Diagnoses Date/Ti [...] exists COVID-19 Vaccine ( - season) 2024 *NEPHROLOGY REFERRAL DUE TO RESISTANT [...] filedocumented as of this encounter Care Teams Telesales Consultant Relationship Specialty Start Date End Date Janel Thornton DO [address] [place] [address] [place] [address] PCP - General Internal Medicine 05/25/16 documented as of this encounter
--- OUTSIDE RECORDS SUMMARY | 2024-08-06 07:25 | External Medical Summary | Summary of Care ---
Author Name Unknown Organization [facility] Address [address] [facility] [address] Phone [phone] Care Team Providers Care Greenstone Polisher Operator Name Role Phone Leobardo Thornton DO Primary Care Provider [phone] Reason for Visit * Reason Comments Re-Check Encounter Details Date Type Department Care Team (Late st Contact Info) Description 04/24/2024 11:40 AM EST Office Visit Family Medicine [address] [phone] Leobardo Nicholson MD [address] [place] [address] [place] [phone] Hypomagnesemia*; Hypokalemia Allergies No known active allergiesdocumented [...] Next Due Pneumococcal Conjugate Vacci ne, 20-valent ([id number]) 12/25/2021 Pneumococcal Polysaccharide PPV23 (Pneumovax) 05/25/2016 Seasonal [...] Description 07/24/2024 11:40 AM EDT Office Visit [address] [place] [phone] Leobardo Nicholson MD [address] [place] [address] [place] [phone] 12/15/2024 11:50 AM EDT Office Visit [address] [place] [phone] Leobardo Thornton DO [address] [place] [address] [place] [address] Scheduled Orders Name Type Priority Associated Diagnoses [...] Hypopotassemia documented in this encounter Care Teams Greenstone Polisher Operator Relationship Specialty Start Date End Date Leobardo Thornton DO [address] [place] [address] [place] [address] PCP - General Internal Medicine 05/25/16 documented as of this encounter
--- OUTSIDE RECORDS SUMMARY | 2024-08-06 07:25 | External Medical Summary | Summary of Care ---
Author Name Unknown Organization [facility] [address] [facility] [address] Phone [phone] Care Team Providers Care Boil Off Machine Operator Cloth Name Role Phone Janel Thornton DO Primary Care Provider Reason for Visit * Reason Onset Date Comments Med Request 07/16/2024 Encounter Details Date Type Department Care Team (Late st Contact Info) Description 07/16/2024 Telephone Family Medicine [address] [place] [phone] Janel Thornton DO [address] [place] [address] [place] [phone] Med Request Allergies No known active allergiesdocumented as of this encounter (statuses as of 07/22/2024) Medications Levothyroxine Sodium 150 MCG Oral Tablet [...] as of this encounter (statuses as of 07/22/2024) Active Problems Problem Noted Date Diagnosed Date 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 01/29/2023 Hyperuricemia 12/25/2021 Overview (12/26/2021): uric acid [...] as of this encounter (statuses as of 07/22/2024) Resolved Problems Problem Noted Date Diagnosed Date Resolved Date Chronic kidney disease, stage 3a 07/10/2022 07/18/2022 CKD (chronic kidney disease), stage II 12/25/2021 08/21/2023 Overview (12/26/2021): EGFR 65 Food insecurity 10/16/2021 08/21/2023 Overview: Per [facility] Protocol BMI 38.0-38.9,adult 05/25/2016 07/18/19 documented as of this encounter (statuses as of 07/22/2024) Immunizations Name Administration Dates Next Due Pneumococcal Conjugate Vacci ne, 20-valent ([id number]) 12/25/2021 Pneumococcal Polysaccharide PPV23 (Pneumovax) 05/25/2016 Seasonal [...] 01/22/2023 Does the household have a re lar source of income? (Household - for ages [...] encounter Miscellaneous Notes * Telephone Encounter - Donna Sanz CMA - 07/22/2024 8:21 AM EDT Called and left message advising of DR Thornton message below * Telephone Encounter - Janel Thornton DO - 07/20/2024 12:19 PM EDT Have her do the blood work ordered by Dr. Dale in April to check her electrolyte levels, and then we will see if she needs to continue the potassium. * Telephone Encounter - Donna Sanz CMA - 07/17/2024 12:11 PM EDT See message * Telephone Encounter - Kacy Melgar CPhT - 07/16/2024 2:05 PM EDT Patient requesting refills for Potassium Chloride Lori ER 20 MEQ Oral Tablet Extended Release. Uponchart review, medication is listed as discontinued, with discontinuation reason as "Refill". Pleaseadvise if you wish to continue this therapy for the patient and send new prescription to [id number] [place] [id number] [facility]. Thank you, Kacy Melgar CPhT Dam Operator II [facility] 07/16/2024,2:05 PM documented in this encounter Plan of Treatment Upcoming Encounters Date Type Department Care Team (Late st Contact Info) Description 07/24/2024 11:40 AM EDT Office Visit Family [address] [place] [phone] Janel Nicholson MD [address] [place] [address] [place] [phone] 12/15/2024 11:50 AM EDT Office Visit Family Medicine [address] [place] [phone] Thornton Janel [address] [place] [address] Scheduled Procedures Name Priority Associated Diagnoses Date/Ti [...] exists COVID-19 Vaccine ( - season) 2024 TSH 03/18/2025 03/18/2024, 01/05, 12/25/2021, [...] filedocumented as of this encounter Care Teams Boil Off Machine Operator Cloth Relationship Specialty Start Date End Date Janel Thornton DO [address] [place] [address] [place] [address] PCP - General Internal Medicine 05/25/16 documented as of this encounter
--- OUTSIDE RECORDS SUMMARY | 2024-08-06 07:25 | External Medical Summary | Summary of Care ---
Author Name Unknown Organization [facility] Address [address] [facility] [place] [address] Phone [phone] Care Team Providers Care Sales Promotion Coordinator Name Role Phone ThorntonJanel dodge Adams Primary Care Provider [phone] Reason for Visit * Reason Comments eRx-Medication Refill Encounter Details Date Type Department Care Team (Late st Contact Info) Description 07/06/2024 Refill Family Medicine [address] [place] [address] Anne Orozco MD [address] [place] [address] [place] [address] Allergies No known active allergiesdocumented as of this encounter (statuses as of 07/08/2024) Medications Levothyroxine Sodium 150 MCG Oral Tablet [...] as of this encounter (statuses as of 07/08/2024) Active Problems Problem Noted Date Diagnosed Date [...] as of this encounter (statuses as of 07/08/2024) Resolved Problems Problem Noted Date Diagnosed Date Resolved Date Chronic kidney disease, stage 3a 07/10/2022 07/18/2022 CKD (chronic kidney disease), stage II 12/25/2021 08/21/2023 Overview (12/26/2021): EGFR 65 Food insecurity 10/16/2021 08/21/2023 Overview: Per [facility] Protocol BMI 38.0-38.9,adult 05/25/2016 07/18/19 18 documented as of this encounter (statuses as of 07/08/2024) Immunizations Name Administration Dates Next Due Pneumococcal Conjugate Vacci ne, 20-valent ([id number]) 12/25/2021 Pneumococcal Polysaccharide PPV23 (Pneumovax) 05/25/2016 Seasonal [...] encounter Miscellaneous Notes * Telephone Encounter - Clayton Knutson [facility] - 07/08/2024 8:52 AM EST Refused Prescriptions: Disp Refills Lisinopril 20 MG Oral Tablet (Prinivil) 90 Tab*3 Sig: TAKE 1 TABLET BY MOUTH EVERY DAY IN THE MORNINGRefused By: CLAYTON KNUTSONReason for Refusal: Other (comment below)Reason for Refusal Comment: current dose is lisinopril 40mg documented in this encounter Plan of Treatment Upcoming Encounters Date Type Department Care Team (Late st Contact Info) Description 07/24/2024 11:40 AM EDT Office Visit [address] [phone] Janel Nicholson MD [address] [place] [address] [place] [phone] 12/15/2024 11:50 AM EDT Office Visit [address] [place] [phone] Janel Thornton DO [address] [place] [address] [place] [address] Scheduled Procedures Name Priority Associated Diagnoses Date/Ti me COLONOSCOPY FLEXIBLE PROXIMA L DIAGNOSTIC Recall Encounter for screening colonoscopy Health Maintenance Due Date Last Done Comments Hepatitis B Vaccine (1 of 3 - 19+ 3-dose series) 11/12/1983 Cologuard 2009 Fecal Occult Blood Test 2009 Sigmoidoscopy 2009 Zoster Vaccines (1 of 2) 2014 Depression Monitoring 03/08/2021 03/08/2020 Mammogram 07/08/2021 07/08/2020, 060 11/2017, 08/28/2016, Additional history exists COVID-19 Vaccine [...] filedocumented as of this encounter Care Teams Sales Promotion Coordinator Relationship Specialty Start Date End Date Janel Thornton DO [address] [place] [address] [place] [address] PCP - General Internal Medicine 05/25/16 documented as of this encounter
--- OUTSIDE RECORDS SUMMARY | 2024-08-06 07:25 | External Medical Summary | Summary of Care ---
Author Name Unknown Organization [facility] Address [address] [facility] [place] [address] Phone [phone] Care Team Providers Care Province Archivist Name Role Phone Leobardo Thornton DO Primary Care Provider [phone] Reason for Visit * Reason Onset Date Comments Medication Refill 07/16/2024 Encounter Details Date Type Department Care Team (Late st Contact Info) Description 07/16/2024 Refill Family Medicine [address] [phone] Leobardo Nicholson MD [address] [place] [address] [place] [phone] Allergies No known active allergiesdocumented as of this encounter (statuses as of 07/17/2024) Medications Levothyroxine Sodium 150 MCG Oral Tablet [...] the morning. 90 Tablet 1 5 Active Magnesium Chloride 64 MG Oral Tablet Take 2 Tablets by mouth in the morning. 60 Tablet 3 5 Active Magnesium Chloride 64 MG Oral Tablet Take 2 Tablets by mouth in the morning. 60 Tablet 3 4 025 Discontin ued(Refil l) documented as of this encounter (statuses as of 07/17/2024) Active Problems Problem Noted Date Diagnosed Date [...] as of this encounter (statuses as of 07/17/2024) Resolved Problems Problem Noted Date Diagnosed Date Resolved Date Chronic kidney disease, stage 3a 07/10/2022 07/18/2022 CKD (chronic kidney disease), stage II 12/25/2021 08/21/2023 Overview (12/26/2021): EGFR 65 Food insecurity 10/16/2021 08/21/2023 Overview: Per [facility] Protocol BMI 38.0-38.9,adult 05/25/2016 07/18/19 18 documented as of this encounter (statuses as of 07/17/2024) Immunizations Name Administration Dates Next Due Pneumococcal Conjugate Vacci ne, 20-valent ([id number]) 12/25/2021 Pneumococcal Polysaccharide PPV23 (Pneumovax) 05/25/2016 Seasonal [...] encounter Miscellaneous Notes * Telephone Encounter - Leobardo Nicholson MD - 07/17/2024 10:17 AM EDTSigned Prescriptions: Disp Refills Magnesium Chloride 64 MG Oral Tablet 60 Tab*3 Sig: Take 2 Tablets by mouth in the morning. Authorizing Provider: LEOBARDO NICHOLSON * Telephone Encounter - Kacy Melgar [facility] - 07/16/2024 2:03 PM EDT Did you pend patient's preferred pharmacy and medication before forwarding?yes Pharmacy: [id number] Pending Prescriptions: Disp Refills Magnesium Chloride 64 MG Oral Tablet 60 Tab*3 Sig: Take 2 Tablets by mouth in the morning. Last Visit: 04/24/2024 (in office), Visit date not found (telemedicine) Next Visit: 07/24/2024 If no future appointments scheduled, and last appointment is greater than a year ago, please schedule patient for a follow-up appointment Last date the medication was ordered: 04/24/24 Is this request for a controlled substance?No Urine Drug Screen:No results found for this or any previous visit. Patient Phone Numbers Labs: Lab Results Component Value Date/Time CREAT 1.2 (H) 04/23/2024 10:26 AM CREAT 1.17 (A) 03/18/2024 12:00 AM CREAT 1.1 (H) 03/08/2020 01:10 PM POTASSIUM 3.6 04/23/2024 10:26 AM POTASSIUM 2.8 (A) 03/18/2024 12:00 AM POTASSIUM 3.8 03/08/2020 01:10 PM TSH 1.470 03/18/2024 12:00 AM TSH 9.51 (H) 03/08/2020 01:10 PM LDL 89 08/21/2023 11:11 AM LDL 83 09/04/2019 01:04 PM LDL NOT APPLICABLE 09/04/2019 01:04 PM LDLCALC 135 (A) 06/03/2015 12:00 AM ALT 35 01/29/2023 03:01 PM ALT 28 09/04/2019 01:04 PM HGBA1C 5.6 09/06/2020 10:57 AM HGBA1C 5.8 (H) 09/04/2019 01:04 PM documented in this encounter Plan of Treatment Upcoming Encounters Date Type Department Care Team (Late st Contact Info) Description 07/24/2024 11:40 AM EDT Office Visit [address] [place] [phone] Leobardo Nicholson MD [address] [place] [address] [place] [phone] 12/15/2024 11:50 AM EDT Office Visit [address] [place] [phone] Leobardo Thornton DO [address] [place] [address] [place] [address] Scheduled Procedures Name Priority Associated Diagnoses Date/Ti [...] filedocumented as of this encounter Care Teams Province Archivist Relationship Specialty Start Date End Date Leobardo Thornton DO [address] [place] [address] [place] [address] PCP - General Internal Medicine 05/25/16 documented as of this encounter
--- OUTSIDE RECORDS SUMMARY | 2024-08-06 07:25 | External Medical Summary | Summary of Care ---
Author Name Unknown Organization [facility] Address [address] [facility] [place] [address] Phone [phone] Care Team Providers Care Nut Grader Name Role Phone Thornton Janel Adams Primary Care Provider [phone] Reason for Visit * Reason Comments eRx-Medication Refill Encounter Details Date Type Department Care Team (Late st Contact Info) Description 07/11/2024 Refill Family Medicine [address] [place] [address] Anne Orozco MD [address] [place] [address] [place] [address] Allergies No known active allergiesdocumented as of [...] Next Due Pneumococcal Conjugate Vacci ne, 20-valent ([id number]) 12/25/2021 Pneumococcal Polysaccharide PPV23 (Pneumovax) 05/25/2016 Seasonal [...] encounter Miscellaneous Notes * Telephone Encounter - Pelon Leger [facility] - 07/13/2024 1:21 PM EDT Refused Prescriptions: Disp Refills Lisinopril 20 MG Oral Tablet (Prinivil) 90 Tab*3 Sig: TAKE 1 TABLET BY MOUTH EVERY DAY IN THE MORNINGRefused By: PELON LEGERReason for Refusal: Other (comment below)Reason for Refusal Comment: dose is 40 documented in this encounter Plan of Treatment Upcoming Encounters Date Type Department Care Team (Late st Contact Info) Description 07/24/2024 11:40 AM EDT Office Visit Family [address] [phone] Janel Nicholson MD [address] [place] [address] [place] [phone] 12/15/2024 11:50 AM EDT Office Visit [address] [phone] Janel Thornton DO [address] [place] [address] [place] [address] Scheduled Procedures Name Priority Associated Diagnoses Date/Ti [...] filedocumented as of this encounter Care Teams Nut Grader Relationship Specialty Start Date End Date Janel Thornton DO [address] [place] [address] [place] [address] PCP - General Internal Medicine 05/25/16 documented as of this encounter
--- OUTSIDE RECORDS SUMMARY | 2024-08-06 07:25 | External Medical Summary | Summary of Care ---
Author Name Unknown Organization [facility] Address [address] [facility] [address] Phone [phone] Care Team Providers Care Candy Separator Hard Name Role Phone Leobardo Thornton DO Primary Care Provider [phone] Reason for Visit * Reason Onset Date Comments Medication Refill 07/08/2024 Encounter Details Date Type Department Care Team (Late st Contact Info) Description 07/08/2024 Refill Family Medicine [address] [place] [address] Leobardo Thornton DO [address] [place] [address] [place] [address] HTN, goal below 130/80 Allergies No known [...] the morning. 90 Tablet 1 5 Active amLODIPine Besylate 5 MG Oral Tablet (Norvasc)Indicatio ns:HTN, goal below 130/80 Take 1 Tablet by mouth in the morning. 90 Tablet 1 4 025 Discontin ued(Refil l) documented as [...] 65 Food insecurity 10/16/2021 08/21/2023 Overview: Per [facility] Protocol BMI 38.0-38.9,adult 05/25/2016 07/18/19 18 documented as of this encounter (statuses as of 07/08/2024) Immunizations Name Administration Dates Next Due Pneumococcal Conjugate Vacci ne, 20-valent (Goxizfr79) 12/25/2021 Pneumococcal Polysaccharide PPV23 (Pneumovax) 05/25/2016 Seasonal [...] Miscellaneous Notes * Telephone Encounter - Leobardo Thornton DO - 07/08/2024 2:21 PM ESTSigned Prescriptions: Disp Refills amLODIPine Besylate 5 MG Oral Tablet (Norv*90 Tab*1 Sig: Take 1 Tablet by mouth in the morning. Authorizing Provider: LEOBARDO THORNTON * Telephone Encounter - Jazmyne Cummins, [facility] - 07/08/2024 1:52 PM ESTPending Prescriptions: Disp Refills amLODIPine Besylate 5 MG Oral Tablet (Norv*90 Tab*1 Sig: Take 1 Tablet by mouth in the morning. * Telephone Encounter - Brii Kc [facility] - 07/08/2024 1:50 PM EST Did you pend patient's preferred pharmacy and medication before forwarding?yes Pharmacy: [id number] Pending Prescriptions: Disp Refills amLODIPine Besylate 5 MG Oral Tablet (Nor*90 Tab*1 Sig: Take 1 Tablet by mouth in the morning. Last Visit: 04/24/2024 (in office), Visit date not found (telemedicine) Next Visit: 07/24/2024 If no future appointments scheduled, and last appointment is greater than a year ago, please schedule patient for a follow-up appointment Last date the medication was ordered: 04.07.2024 Is this request for a controlled substance?No [...] Description 07/24/2024 11:40 AM EDT Office Visit [address] [place] [phone] Leobardo Nicholson MD [address] [place] [address] [place] [phone] 12/15/2024 11:50 AM EDT Office Visit Family Medicine [address] [place] [phone] [place] [address] Scheduled Procedures Name Priority Associated Diagnoses Date/Ti [...] hypertension documented in this encounter Care Teams Candy Separator Hard Relationship Specialty Start Date End Date Leobardo Thornton DO [address] [place] [address] [place] [address] PCP - General Internal Medicine 05/25/16 documented as of this encounter
--- OUTSIDE RECORDS SUMMARY | 2024-08-06 07:25 | External Medical Summary ---
Author Name Unknown Address Unknown Organization K01:[facility] [place] [facility] [address] [facility] [address] [place] [address] Laboratory Report Ordering Provider Test Date Status SERA BOOTH 04/23/2024 10:26:18 Final Observation Date Value Abnormality Reference (Units ) Status BUN 04/23/2024 10:26:18 9 6-20 (mg/dL) Final Creatinine 04/23/2024 10:26:18 1.2 Above high normal 0.5-1.0 (mg/dL) Final Glomerular filtration rate/1.73 sq M.predicted [Volume Rate/Area] in Serum, Plasma or Blood by Creatinine-based formula (CKD-EPI) 04/23/2024 10:26:18 54 Below low normal >=60 (mL/min) Final eGFR is calculated based on the CKD-EPI 2020 equation. Sodium 04/23/2024 10:26:18 141 135-146 (m mol/L) Final Potassium 04/23/2024 10:26:18 3.6 3.5-5.1 (m mol/L) Final Cl 04/23/2024 10:26:18 100 98-107 (mm ol/L) Final CO2 04/23/2024 10:26:18 24 22-32 (mmo l/L) Final Anion gap 04/23/2024 10:26:18 17 Above high normal 7- 15 (mmol/L) Final Glucose 04/23/2024 10:26:18 89 70-120 (mg /dL) Final Calcium 04/23/2024 10:26:18 8.1 Below low normal 8.4 -10.2 (mg/dL) Final Performing Location LAB[facility]ORY [facility] [place] - [address] [place] [address]
--- OUTSIDE RECORDS SUMMARY | 2024-08-06 07:25 | External Medical Summary ---
Author Name Unknown Address Unknown Organization K01:LABORATORY [facility] - [address] [place] [address] Laboratory Report Ordering Provider Test Date Status SERA BOOTH ALLISON 04/23/2024 10:26:18 Final Observation Date Value Abnormality Reference (Units ) Status Magnesium 04/23/2024 10:26:18 1.3 Below low normal 1.5 -2.6 (mg/dL) Final Performing Location LABORATORY [facility] - [address] [place] [address]
--- OUTSIDE RECORDS SUMMARY | 2024-08-06 07:25 | External Medical Summary | Summary of Care ---
Author Name Unknown Organization [facility] Address [address] [facility] [address] Phone [phone] Care Team Providers Care Pile Driving Nozzleman Name Role Phone Janel Thornton DO Primary Care Provider [phone] Reason for Visit * Reason Comments Outpatient Testing Encounter Details Date Type Department Care Team (Late st Contact Info) Description 04/23/2024 10:30 AM EST Laboratory Laboratory [address] [place] [phone] [address] [place] [address] Hypomagnesemia; Hypokalemia; Hypercalcemia Allergies No known active allergiesdocumented as of this encounter (statuses as of 04/23/2024) Medications Levothyroxine Sodium 150 MCG Oral Tablet [...] as of this encounter (statuses as of 04/23/2024) Active Problems Problem Noted Date Diagnosed Date 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 Hyperuricemia 12/25/2021 Overview (12/26/2021): uric [...] as of this encounter (statuses as of 04/23/2024) Resolved Problems Problem Noted Date Diagnosed Date Resolved Date Chronic kidney disease, stage 3a 07/10/2022 07/18/2022 CKD (chronic kidney disease), stage II 12/25/2021 08/21/2023 Overview (12/26/2021): EGFR 65 Food insecurity 10/16/2021 08/21/2023 Overview: Per [facility] Protocol BMI 38.0-38.9,adult 05/25/2016 07/18/19 documented as of this encounter (statuses as of 04/23/2024) Immunizations Name Administration Dates Next Due Pneumococcal Conjugate Vacci ne, 20-valent ([id number]) 12/25/2021 Pneumococcal Polysaccharide PPV23 (Pneumovax) 05/25/2016 Seasonal [...] on file Are you (or your family) cheol eless or worried that you might be [...] Description 04/24/2024 11:40 AM EST Office Visit [address] [phone] Janel Nicholson MD [address] [place] [address] [place] [phone] 12/15/2024 11:50 AM EDT Office Visit [address] [place] [phone] Janel Thornton DO [address] [place] [address] [place] [address] Pending Results Name Type Priority Associated Diagnoses Date /Time BASIC METABOLIC PANEL Lab Routine Hypomagnesemia Hypokalemia Hypercalcemia 04/23/2024 10:26 AM EST MAGNESIUM Lab Routine Hypomagnesemia Hypokalemia Hypercalcemia 04/23/2024 10:26 AM EST Scheduled Procedures Name Priority Associated Diagnoses Date/Ti [...] Hypomagnesemia Disorders of magnesium metabolism Hypokalemia Hypopotassemia Hypercalcemia documented in this encounter Care Teams Pile Driving Nozzleman Relationship Specialty Start Date End Date Janel Thornton DO [address] [place] [address] [place] [address] PCP - General Internal Medicine 05/25/16 documented as of this encounter
--- OUTSIDE RECORDS SUMMARY | 2024-08-06 07:26 | External Medical Summary ---
Author Name Unknown Address Unknown Organization K01:LABORATORY [facility] [place] - [address] [place] [address] Laboratory Report Ordering Provider Test Date Status SERA BOOTH ALLISON 04/07/2024 11:39:56 Final Observation Date Value Abnormality Reference (Units ) Status Parathyrin.intact [Mass/volume] in Serum or Plasma 04/07/2024 11:39:56 66 Above high normal 15-65 (pg/mL) Final Performing Location LABORATORY [facility] [place] - [address] [place] [address]
--- OUTSIDE RECORDS SUMMARY | 2024-08-06 07:26 | External Medical Summary ---
Author Name Unknown Address Unknown Organization K01:LABORATORY [facility] - [address] [place] [address] Laboratory Report Ordering Provider Test Date Status LEOBARDOSERA WHITE ALLISON 04/07/2024 11:39:56 Final Observation Date Value Abnormality Reference (Units ) Status Magnesium 04/07/2024 11:39:56 0.8 Below low normal 1.5 -2.6 (mg/dL) Final Performing Location LABORATORY [facility] - [address] [place] [address]
--- OUTSIDE RECORDS SUMMARY | 2024-08-06 07:26 | External Medical Summary | Summary of Care ---
Author Name Unknown Organization [facility] Address [address] [facility] [address] Phone [phone] Care Team Providers Care Acquisitions Logistics Analyst Name Role Phone Janel Thornton DO Primary Care Provider [phone] Reason for Visit * Reason Comments Outpatient Testing Encounter Details Date Type Department Care Team (Late st Contact Info) Description 04/07/2024 11:30 AM EST Laboratory Laboratory [address] [place] [phone] [address] [place] [address] [employer] Other*[id number]; Hypomagnesemia; Hypokalemia; Electrolyte abnormality; Hyperuricemia Allergies No known active allergiesdocumented as of this encounter (statuses as of 04/07/2024) Medications Levothyroxine Sodium 150 MCG Oral Tablet (Levoxyl)Indication s:Acquired hypothyroidism TAKE 1 TABLET BY MOUTH DAILY FIRST THING IN THE MORNING AT LEAST 30MIN PRIOR TO BREAKFAST/OT HER MEDS 90 Tablet 3 4 Active Omeprazole 20 MG Oral Capsule Delayed Release (PriLOSEC)Indicatio ns:Gastroesophageal reflux disease without esophagitis Take 1 Capsule by mouth in the morning. 90 Capsule 1 4 Active Allopurinol 300 MG Oral Tablet [...] BEFORE BEDTIME 90 Tablet 11 4 Active D 1000 25 MCG (1000 UT) Oral Capsule Take 1 Capsule by mouth in the morning. 4 Active Lisinopril 40 MG Oral Tablet [...] X 30 days. 120 Tablet 4 Active documented as of this encounter (statuses as of 04/07/2024) Active Problems Problem Noted Date Diagnosed Date [...] as of this encounter (statuses as of 04/07/2024) Resolved Problems Problem Noted Date Diagnosed Date Resolved Date Chronic kidney disease, stage 3a 07/10/2022 07/18/2022 CKD (chronic kidney disease), stage II 12/25/2021 08/21/2023 Overview (12/26/2021): EGFR 65 Food insecurity 10/16/2021 08/21/2023 Overview: Per [facility] Protocol BMI 38.0-38.9,adult 05/25/2016 07/18/19 18 documented as of this encounter (statuses as of 04/07/2024) Immunizations Name Administration Dates Next Due Pneumococcal Conjugate Vacci ne, 20-valent ([id number]) 12/25/2021 Pneumococcal Polysaccharide PPV23 (Pneumovax) 05/25/2016 Seasonal [...] Description 04/17/2024 11:00 AM EST Imaging Radiology [address] [place] [address] 04/21/2024 11:40 AM EST Office Visit Family Medicine [address] [place] [phone] Janel Nicholson MD [address] [place] [address] [place] [phone] 12/15/2024 11:50 AM EDT Office Visit [address] [place] [phone] Janel Thornton DO [address] [place] [address] [place] [address] Pending Results Name Type Priority Associated Diagnoses Date /Time MYCODE SUBSEQUENT ADULT Lab Routine [employer] Other*[id number] 04/07/2024 11:39 AM EST BASIC METABOLIC PANEL Lab Routine Hypomagnesemia Hypokalemia 04/07/2024 11:39 AM EST MAGNESIUM Lab Routine Hypomagnesemia Hypokalemia 04/07/2024 11:39 AM EST URIC ACID Lab Routine Hyperuricemia 04/07/2024 11:39 AM EST MYCODE SST1 Lab Routine [employer] Other*[id number] 04/07/2024 11:39 AM EST MYCODE SST2 Lab Routine [employer] Other*[id number] 04/07/2024 11:39 AM EST Scheduled Procedures Name Priority Associated [...] COVID-19 Vaccine ( - 2023- season) 2024 TSH 03/18/2025 03/18/2024, 01/05, 12/25/2021, Additional history exists GFR 03/24/2025 03/24/2024, 03/06, 08/21/2023, Additional history exists DTap/Tdap Vaccines (2 - Td or Tdap) 12/06/2025 12/07/2015 Albumin/Creatinine Ratio 01/29/2026 01/29/2023, 12/05 Colonoscopy 09/03/2026 09/03/2016, 09/03/2016 Colorectal Cancer Screening 09/03/2026 Diabetes Screening 03/24/2027 03/24/2024, 1 05/18/2023, 08/21/2023, Additional history exists Lipid Panel 08/20/2028 08/21/2023, [...] as of this encounter Visit Diagnoses Diagnosis [employer] Other*[id number] Hypomagnesemia Disorders of magnesium metabolism Hypokalemia Hypopotassemia Electrolyte abnormality Electrolyte and fluid disorders not elsewhere classified Hyperuricemia Other abnormal blood chemistry documented in this encounter Care Teams Acquisitions Logistics Analyst Relationship Specialty Start Date End Date Janel Thornton DO [address] [place] [address] [place] [address] PCP - General Internal Medicine 05/25/16 documented as of this encounter
--- OUTSIDE RECORDS SUMMARY | 2024-08-06 07:26 | External Medical Summary | Summary of Care ---
Author Name Unknown Organization [facility] Address [address] [facility] [address] Phone [phone] Care Team Providers Care Ice Skating Instructor Name Role Phone Janel Thornton DO Primary Care Provider [phone] Reason for Visit * Reason Comments Re-Check Encounter Details Date Type Department Care Team (Late st Contact Info) Description 04/07/2024 10:10 AM EST Office Visit Family Medicine [address] [place] [phone] Janel Thornton DO [address] [place] [address] [place] [address] HTN, goal below 130/80*; Depression with anxiety; Hyperlipidemia with target LDL less than 100; Gastroesophageal reflux disease without esophagitis; Acquired hypothyroidism; Hyperuricemia; Electrolyte abnormality Allergies No known active allergiesdocumented as of this encounter (statuses as of 04/07/2024) Medications Levothyroxine Sodium 150 MCG Oral Tablet (Levoxyl)Indicati ons:Acquired hypothyroidism TAKE 1 TABLET BY MOUTH DAILY FIRST THING IN THE MORNING AT LEAST 30MIN PRIOR TO BREAKFAST/O THER MEDS 90 Tablet 3 01/22/20 24 Active Omeprazole 20 MG Oral Capsule Delayed Release (PriLOSEC)Indicat ions:Gastroesopha geal reflux disease without esophagitis Take 1 Capsule by mouth in the morning. 90 Capsule 1 02/13/20 24 Active Allopurinol 300 MG Oral Tablet (Zyloprim)Indicat ions:Gout of big toe TAKE 1 TABLET BY [...] Active Atorvastatin Calcium 20 MG Oral Tablet (Lipitor)Indicati ons:Hyperlipidemi a with target LDL less than 100 Take [...] BEDTIME 90 Tablet 11 03/02/20 24 Active D 1000 25 MCG (1000 UT) Oral Capsule Take 1 Capsule by mouth in the morning. 03/19/20 24 Active Lisinopril 40 MG Oral Tablet Take 1 Tablet by mouth in the morning. 30 Tablet 5 03/24/20 24 Active amLODIPine Besylate 5 MG Oral Tablet (Norvasc)Indicati ons:HTN, goal below 130/80 Take 1 Tablet by mouth in the morning. 90 Tablet 1 04/07/20 24 Active Potassium Chloride Lori ER 20 MEQ Oral Tablet Extended ReleaseIndication s:Electrolyte abnormality Take 1 Tablet by mouth in the morning and 1 Tablet before bedtime. 180 Tablet 1 04/07/20 24 Active Magnesium Oxide -Mg Supplement 400 (240 Mg) MG Oral Tablet (Mag-Ox)Indicatio ns:Electrolyte abnormality Take 1 Tablet by mouth in the morning and 1 Tablet before bedtime. X 30 days. 120 Tablet 04/07/20 24 Active Furosemide 20 MG Oral Tablet (Lasix)Indication s:Bilateral leg edema Take 1 Tablet by mouth in the morning. 90 Tablet 3 07/03/19 23 024 Discontinued hydrOXYzine HCl 25 MG Oral TabletIndications :Depression with anxiety TAKE 1 TABLET BY MOUTH EVERY 6 HOURS NEEDED FOR ANXIETY 60 Tablet 3 05/12/19 24 024 Discontinued Magnesium Oxide -Mg Supplement 400 (240 Mg) MG Oral Tablet (Mag-Ox) Take 1 Tablet by mouth in the morning and 1 Tablet before bedtime. X 30 days. 03/25/20 24 024 Discontinued(R efill) Potassium Chloride Lori ER 20 MEQ Oral Tablet Extended Release Take 1 Tablet by mouth in the morning and 1 Tablet before bedtime. 03/25/20 24 024 Discontinued(R efill) documented as of this encounter (statuses as [...] Next Due Pneumococcal Conjugate Vacci ne, 20-valent ([id number]) 12/25/2021 Pneumococcal Polysaccharide PPV23 (Pneumovax) 05/25/2016 Seasonal [...] No 01/22/2023 Does the household have a [employer] source of income? (Household - for ages [...] Sign Reading Time Taken Comments Blood Pressure 164/90 04/07/2024 10:36 AM EST Pulse 74 04/07/2024 10:36 AM EST Temperature - - Respiratory Rate - - Oxygen Saturation 98% 04/07/2024 10:36 AM EST Inhaled Oxygen Concentration - - Weight 99.3 kg (219 lb) 04/07/2024 10:36 AM EST Height - - Body Mass Index 33.79 03/24/2024 2:18 PM EST documented in this encounter Progress Notes * Janel Thornton, DO - 04/07/2024 11:02 AM EST Subjective: Kia Blankenship is a 58 year old female. Chief Complaint Patient presents with Re-Check HPI: Kia Blankenship presents today for routine follow up. She was recently hospitalized for electrolyte abnormalities. Still had abnormalities after discharge. Currently on magnesium 2-3 x per day and 20 meq of potassium 2x per day. She denies any muscle cramping. She feels much better now than she did. Willing to do repeat blood work here today. BP is still high here today. She is not taking furosemide nor any other water pill and has not taken it in some time. Willing to start amlodipine to help with her BP. Mood is better. She is happy with her current dose of paroxetine. Gout is bad in her left foot. She is on allopurinol. Due to have her uric acid level checked. Mammogram is scheduled for later this month. 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 90 Tablet 3 hydrOXYzine HCl 25 MG Oral Tablet TAKE 1 TABLET BY MOUTH EVERY 6 HOURS NEEDED FOR ANXIETY 60 Tablet 3 Levothyroxine Sodium 150 MCG Oral Tablet (Levoxyl) TAKE 1 TABLET BY MOUTH DAILY FIRST THING IN THE MORNING AT LEAST 30MIN PRIOR TO BREAKFAST/OTHER MEDS 90 Tablet 3 Omeprazole 20 MG Oral Capsule Delayed Release (PriLOSEC) Take 1 Capsule by mouth in the morning. 90Capsule 1 Allopurinol 300 MG Oral Tablet (Zyloprim) TAKE 1 TABLET BY MOUTH EVERY DAY IN THE MORNING 90 Tablet1 PARoxetine HCl 10 MG Oral Tablet (pAXil) TAKE ONE TABLET BY MOUTH DAILY ALONG WITH 40MG DOSE FOR TOTAL DOSE OF 50MG 90 Tablet 3 PARoxetine HCl 40 MG Oral Tablet (pAXil) TAKE 1 TABLET BY MOUTH EVERY DAY IN THE MORNING, along with a 10mg, for total of 50 mg 90 Tablet 3 Atorvastatin Calcium 20 MG Oral Tablet (Lipitor) Take 1 Tablet by mouth in the morning. 90 Tablet 3 Albuterol Sulfate HFA 108 (90 Base) MCG/ACT Inhalation Aerosol Solution INHALE 2 PUFFS BY MOUTH EVERY 4 HOURS NEEDED FOR COUGH OR WHEEZING 54 g 2 busPIRone HCl 10 MG Oral Tablet (Buspar) TAKE 1 TABLET BY MOUTH IN THE MORNING AT AT NOON AND BEFORE BEDTIME 90 Tablet 11 D 1000 25 MCG (1000 UT) Oral Capsule Take 1 Capsule by mouth in the morning. Lisinopril 40 MG Oral Tablet Take 1 Tablet by mouth in the morning. 30 Tablet 5 Magnesium Oxide -Mg Supplement 400 (240 Mg) MG Oral Tablet (Mag-Ox) Take 1 Tablet by mouth in the morning and 1 Tablet before bedtime. X 30 days. Potassium Chloride Lori ER 20 MEQ Oral Tablet Extended Release Take 1 Tablet by mouth in the morning and 1 Tablet before bedtime. No current facility-administered medications for this visit. Review of patient's allergies indicates: No Known Allergies Objective: BP 164/90 | Pulse 74 | Wt 219 lb (99.3 kg) | SpO2 98% | BMI 33.79 kg/m² | BSA 2.17 m² General: alert, healthy, no distress, well nourished, and well developed Neck: supple, no adenopathy, thyroid normal size, non-tender, without nodularity Heart: regular rate & rhythm and no murmur Lungs: chest symmetric with normal AP diameter, no chest deformities noted, normal respiratory rateand rhythm, lungs clear to auscultation Abdomen: abdomen soft and non-tender Extremities: no joint deformities, effusion, or inflammation, no edema Neuro Exam: alert & oriented x 3 with fluent speech, no focal motor/sensory deficits, gait normal Skin: skin color, texture, turgor are normal, no rashes or significant lesions ASSESSMENT/PLAN: HTN, goal below 130/80 (Primary) - add amlodipine to lisinopril. Do not want to add a diuretic while her electrolytes are still off. - amLODIPine Besylate 5 MG Oral Tablet (Norvasc); Take 1 Tablet by mouth in the morning. Depression with anxiety - continue paxil. Stable. Hyperlipidemia with target LDL less than 100 - continue atorvastatin Gastroesophageal reflux disease without esophagitis - continue omeprazole. Acquired hypothyroidism - continue levothyroxine. Hyperuricemia - on allopurinol. If her uric acid level is below 6, I suspect her pain is from another etiology. She has been compliant with taking her medication. - URIC ACID; Future; Expected date: 04/07/2024 Electrolyte abnormality - MAGNESIUM; Future; Expected date: 04/07/2024 - BASIC METABOLIC PANEL; Future; Expected date: 04/07/2024 - Potassium Chloride Lori ER 20 MEQ Oral Tablet Extended Release; Take 1 Tablet by mouth in the morning and 1 Tablet before bedtime. - Magnesium Oxide -Mg Supplement 400 (240 Mg) MG Oral Tablet (Mag-Ox); Take 1 Tablet by mouth in the morning and 1 Tablet before bedtime. X 30 days. Follow-up: Return in about 2 weeks (around 04/21/2024). | Check-out note: Labs today. 2 weeks with me or Dr. Dale. 6 months routine with me. Janel Thornton DO documented in this encounter Plan of Treatment Upcoming Encounters Date Type Department Care Team (Late st Contact Info) Description 04/17/2024 11:00 AM EST Imaging Radiology [address] [place] [address] Pending Results Name Type Priority Associated Diagnoses Date /Time URIC ACID Lab Routine Hyperuricemia 04/07/2024 11:39 AM EST Scheduled Orders Name Type Priority Associated Diagnoses Orde r Schedule URIC ACID Lab Routine Hyperuricemia Expected: 04/07/2024 (Approximate), Expires: 04/07/2025 Scheduled Procedures Name Priority Associated Diagnoses Date/Ti [...] encounter Visit Diagnoses Diagnosis HTN, goal below 130/80- Primary Unspecified essential hypertension Depression with anxiety Dysthymic disorder Hyperlipidemia with target LDL less than 100 Other and unspecified hyperlipidemia Gastroesophageal reflux disease without esophagitis Esophageal reflux Acquired hypothyroidism Unspecified hypothyroidism Hyperuricemia Other abnormal blood chemistry Electrolyte abnormality Electrolyte and fluid disorders not elsewhere classified documented in this encounter Care Teams Ice Skating Instructor Relationship Specialty Start Date End Date Janel Thornton DO [address] [place] [address] [place] [id number] PCP - General Internal Medicine 05/25/16 documented as of this encounter"
--- OUTSIDE RECORDS SUMMARY | 2024-08-06 07:26 | External Medical Summary ---
Author Name Unknown Address Unknown Organization K01:LABORATORY [facility] [place] - [facility] [address] [place] [address] Laboratory Report Ordering Provider Test Date Status SERA BOOTH 04/07/2024 11:39:56 Final Observation Date Value Abnormality Reference (Units ) Status BUN 04/07/2024 11:39:56 12 6-20 (mg/dL) Final Creatinine 04/07/2024 11:39:56 1.0 0.5-1.0 (mg/dL) Final Glomerular filtration rate/1.73 sq M.predicted [Volume Rate/Area] in Serum, Plasma or Blood by Creatinine-based formula (CKD-EPI) 04/07/2024 11:39:56 65 >=60 (mL/min) Final eGFR is calculated based on the CKD-EPI 2020 equation. Sodium 04/07/2024 11:39:56 143 135-146 (m mol/L) Final Potassium 04/07/2024 11:39:56 3.8 3.5-5.1 (m mol/L) Final Cl 04/07/2024 11:39:56 101 98-107 (mm ol/L) Final CO2 04/07/2024 11:39:56 26 22-32 (mmo l/L) Final Anion gap 04/07/2024 11:39:56 16 Above high normal 7- 15 (mmol/L) Final Glucose 04/07/2024 11:39:56 68 Below low normal 70- 120 (mg/dL) Final Calcium 04/07/2024 11:39:56 7.1 Below low normal 8.4 -10.2 (mg/dL) Final Performing Location LABORATORY [facility] [place] - [facility] [address] [place] [address]
--- OUTSIDE RECORDS SUMMARY | 2024-08-06 07:26 | External Medical Summary | Summary of Care ---
Author Name Unknown Organization [facility] Address [address] [facility] [address] Phone [phone] Care Team Providers Care Customer Experience Specialist Name Role Phone Janel Thornton DO Primary Care Provider [phone] Reason for Visit * Reason Onset Date Comments Advice 03/25/2024 Where does want DME sent Encounter Details Date Type Department Care Team (Late st Contact Info) Description 03/25/2024 Telephone Family Medicine [address] [phone] Janel Nicholson MD [address] [place] [address] [place] [phone] Advice (Where does want DME sent ) Allergies No known active allergiesdocumented as of this encounter (statuses as of 03/25/2024) Medications Furosemide 20 MG Oral Tablet (Lasix)Indications: Bilateral leg edema Take 1 Tablet by mouth in the morning. 90 Tablet 3 3 Active hydrOXYzine HCl 25 MG Oral TabletIndications:D epression with anxiety TAKE 1 TABLET BY MOUTH EVERY 6 HOURS NEEDED FOR ANXIETY 60 Tablet 3 4 Active Levothyroxine Sodium 150 MCG Oral Tablet (Levoxyl)Indication [...] by mouth in the morning. 4 Active predniSONE 20 MG Oral Tablet (Deltasone) Take 2 Tablets by mouth in the morning for 5 days. 10 Tablet 4 03/29/20 24 Active Lisinopril 40 MG Oral Tablet Take 1 Tablet by mouth in the morning. 30 Tablet 5 4 Active Magnesium Oxide -Mg Supplement 400 (240 Mg) MG Oral Tablet (Mag-Ox) Take 1 Tablet by mouth in the morning and 1 Tablet before bedtime. X 30 days. 4 Active Potassium Chloride Lori ER 20 MEQ Oral Tablet Extended Release Take 1 Tablet by mouth in the morning and 1 Tablet before bedtime. 4 Active documented as of this encounter (statuses as of 03/25/2024) Active Problems Problem Noted Date Diagnosed Date [...] as of this encounter (statuses as of 03/25/2024) Resolved Problems Problem Noted Date Diagnosed Date Resolved Date Chronic kidney disease, stage 3a 07/10/2022 07/18/2022 CKD (chronic kidney disease), stage II 12/25/2021 08/21/2023 Overview (12/26/2021): EGFR 65 Food insecurity 10/16/2021 08/21/2023 Overview: Per [facility] Protocol BMI 38.0-38.9,adult 05/25/2016 07/18/19 18 documented as of this encounter (statuses as of 03/25/2024) Immunizations Name Administration Dates Next Due Pneumococcal Conjugate Vacci ne, 20-valent ([id number]) 12/25/2021 Pneumococcal Polysaccharide PPV23 (Pneumovax) 05/25/2016 Seasonal [...] Telephone Encounter - Donna Sanz CMA - 03/25/2024 11:19 AM EST Faxed info to [facility] called and LM advising pt order sent * Telephone Encounter - Alyse Gutierrez solutions analyst - 03/25/2024 10:24 AM EST Patient returning call. States to send it to [facility] in [place]. Thank you, Alyse Gutierrez [employer] [facility] 03/25/2024,10:26 AM * Telephone Encounter - Donna Sanz CMA - 03/25/2024 10:10 AM EST Called and Left message for pt to see where she wants order for DME supply BP cuff sent. Like [facility], or [facility] medical supply. Asked for call back documented in this encounter Plan of Treatment Upcoming Encounters Date Type Department Care Team (Late st Contact Info) Description 04/01/2024 8:50 AM EST Laboratory Laboratory [address] [place] [phone] [place] [address] 04/06/2024 1:15 PM EST Office Visit Orthopaedics [facility] [address] [place] [address] Johnny Hung MD [address] [place] [address] 04/07/2024 10:10 AM EST Office Visit Family Medicine [address] [place] [phone] Janel Thornton[address] [place] [address] 04/17/2024 11:00 AM EST Imaging Radiology [address] [place] [address] Scheduled Procedures Name Priority Associated Diagnoses Date/Ti [...] filedocumented as of this encounter Care Teams Customer Experience Specialist Relationship Specialty Start Date End Date Janel Thornton DO [address] [place] [address] [place] [address] PCP - General Internal Medicine 05/25/16 documented as of this encounter
--- OUTSIDE RECORDS SUMMARY | 2024-08-06 07:26 | External Medical Summary ---
Author Name Unknown Address Unknown Organization K01:LABORATORY [facility] [place] - [address] [place] [address] Laboratory Report Ordering Provider Test Date Status BRYAN GAMEZ 04/07/2024 11:39:56 Final Observation Date Value Abnormality Reference (Units ) Status MYCODE SPECIMEN-SST 04/07/2024 11:39:56 Freezing of extracted DNA, whole blood and/or serum. Final Performing Location LAB[facility]ATORY [facility] [place] - [address] [place] [address]
--- OUTSIDE RECORDS SUMMARY | 2024-08-06 07:26 | External Medical Summary ---
Author Name Unknown Address Unknown Organization K01[place] [place] [address] [place] [address] Laboratory Report Ordering Provider Test Date Status BRYAN GAMEZ 04/07/2024 11:39:56 Final Observation Date Value Abnormality Reference (Units ) Status MYCODE SPECIMEN-SST 04/07/2024 11:39:56 Freezing of extracted DNA, whole blood and/or serum. Final Performing Location [facility] [facility] [place] [address] [place] [address]
--- OUTSIDE RECORDS SUMMARY | 2024-08-06 07:26 | External Medical Summary ---
Author Name Unknown Address Unknown Organization K01:[facility] [place] [facility] [place] - [address] [place] [address] Laboratory Report Ordering Provider Test Date Status LENA BOOTH 04/07/2024 11:39:56 Final Observation Date Value Abnormality Reference (Units ) Status Uric Acid 04/07/2024 11:39:56 4.2 2.4-5.7 (m g/dL) Final Performing Location [facility] [place] [place] [address] [place] [address]
--- OUTSIDE RECORDS SUMMARY | 2024-08-06 07:26 | External Medical Summary | Summary of Care ---
Author Name Unknown Organization [facility] Address [address] [facility] [address] Phone [phone] Care Team Providers Care Engineering Model Maker Name Role Phone Janel Thornton DO Primary Care Provider [phone] Reason for Visit * Reason Onset Date Comments Abnormal Test Results 04/08/2024 Low mag an d calcium Encounter Details Date Type Department Care Team (Late st Contact Info) Description 04/08/2024 Telephone Family Medicine [address] [phone] Janel Nicholson MD [address] [place] [address] [place] [phone] Abnormal Test Results (Low mag and calcium) Allergies No known active allergiesdocumented as of this encounter (statuses as of 04/08/2024) Medications Levothyroxine Sodium 150 MCG Oral Tablet [...] MG Oral Tablet (Mag-Ox)Indication s:Electrolyte abnormality Take 1 Tablet by mouth in the morning and 1 Tablet before bedtime. X 30 days. 120 Tablet 04/07/20 24 Active Omeprazole 20 MG Oral Capsule Delayed Release (PriLOSEC)Indicati ons:Gastroesophage al reflux disease without esophagitis Take 1 Capsule by mouth in the morning. 90 Capsule 1 02/13/20 24 024 Discontinued documented as of this encounter (statuses as of 04/08/2024) Active Problems Problem Noted Date Diagnosed Date [...] as of this encounter (statuses as of 04/08/2024) Resolved Problems Problem Noted Date Diagnosed Date Resolved Date Chronic kidney disease, stage 3a 07/10/2022 07/18/2022 CKD (chronic kidney disease), stage II 12/25/2021 08/21/2023 Overview (12/26/2021): EGFR 65 Food insecurity 10/16/2021 08/21/2023 Overview: Per [facility] Protocol BMI 38.0-38.9,adult 05/25/2016 07/18/19 18 documented as of this encounter (statuses as of 04/08/2024) Immunizations Name Administration Dates Next Due Pneumococcal Conjugate Vacci ne, 20-valent ([id number]) 12/25/2021 Pneumococcal Polysaccharide PPV23 (Pneumovax) 05/25/2016 Seasonal [...] encounter Miscellaneous Notes * Telephone Encounter - Janel Nicholson MD - 04/08/2024 2:47 PM EST Labs showed continued low Mag, rec holding PPI, increase supplement for 1 week and recheck in 1 week. Check PTH as well with the low calcium. Notified in [employer] documented in this encounter Plan of Treatment Upcoming Encounters Date Type Department Care Team (Late st Contact Info) Description 04/17/2024 11:00 AM EST Imaging Radiology [address] [place] [address] 04/21/2024 11:40 AM EST Office Visit Family Medicine [address] [place] [phone] Janel Nicholson MD [address] [place] [address] [place] [phone] 12/15/2024 11:50 AM EDT Office Visit Family Medicine [address] [place] [phone] Janel Thornton DO [address] [place] [address] [place] [address] Pending Results Name Type Priority Associated Diagnoses Date /Time PTH Lab Routine Hypomagnesemia Hypokalemia Hypercalcemia 04/07/2024 11:39 AM EST Scheduled Orders Name Type Priority Associated Diagnoses Orde r Schedule BASIC METABOLIC PANEL Lab Routine Hypomagnesemia Hypokalemia Hypercalcemia Expected: 04/15/2024 (Approximate), Expires: 04/08/2025 MAGNESIUM Lab Routine Hypomagnesemia Hypokalemia Hypercalcemia Expected: 04/15/2024 (Approximate), Expires: 04/08/2025 PTH Lab Routine Hypomagnesemia Hypokalemia Hypercalcemia Expected: 04/08/2024 (Approximate), Expires: 04/08/2025 Scheduled Procedures Name Priority Associated Diagnoses Date/Ti [...] Primary Disorders of magnesium metabolism Hypokalemia Hypopotassemia Hypercalcemia Electrolyte abnormality Electrolyte and fluid disorders not elsewhere classified documented in this encounter Care Teams Engineering Model Maker Relationship Specialty Start Date End Date Janel Thornton DO [address] [place] [address] [place] [address] PCP - General Internal Medicine 05/25/16 documented as of this encounter
--- OUTSIDE RECORDS SUMMARY | 2024-08-06 07:27 | External Medical Summary | Summary of Care ---
Author Name Unknown Organization [facility] Address [address] [facility] [address] Phone [phone] Care Team Providers Care Talent Acquisition Lead Name Role Phone ThorntonJanel dodge Primary Care Provider + [phone] Reason for Visit * Reason Comments eRx-Medication Refill Encounter Details Date Type Department Care Team (Late st Contact Info) Description 02/27/2024 Refill Family Medicine [address] [place] [phone] Sanjuanita Mckeon MD [address] [place] [address] [place] [address] Allergies No known active allergiesdocumented as of this encounter (statuses as of 03/02/2024) Medications Medication Sig Dispensed Refills Start Date End Date Status Magnesium Oxide 400 (240 Mg) MG Tablet Take 1 Tablet by mouth in the morning. X 30 days. 0 Active Furosemide 20 MG Oral Tablet (Lasix)Indications: Bilateral leg edema Take 1 Tablet by mouth in the morning. 90 Tablet 3 3 Active hydrOXYzine HCl 25 MG Oral TabletIndications:D epression with anxiety TAKE 1 TABLET BY MOUTH EVERY 6 HOURS NEEDED FOR ANXIETY 60 Tablet 3 4 Active methylPREDNISolone 4 MG Oral Tablet Therapy Pack (Medrol Dosepack) follow package directions 21 Tablet 1 4 Active Lisinopril 20 MG Oral Tablet (Prinivil)Indicatio ns:HTN, goal below 130/80 TAKE 1 TABLET BY MOUTH EVERY DAY IN THE MORNING 90 Tablet 3 4 Active Levothyroxine Sodium 150 MCG Oral Tablet (Levoxyl)Indication s:Acquired hypothyroidism TAKE 1 TABLET BY MOUTH DAILY FIRST THING IN THE MORNING AT LEAST 30MIN PRIOR TO BREAKFAST/OTHER MEDS 90 Tablet 3 4 Active Omeprazole 20 MG Oral Capsule Delayed Release (PriLOSEC)Indicatio ns:Gastroesophageal reflux disease without esophagitis Take 1 Capsule by mouth in the morning. 90 Capsule 1 4 Active Potassium Chloride Lori ER 20 MEQ Oral Tablet Extended Release Take 1 Tablet by mouth in the morning. 90 Tablet 3 4 Active Allopurinol 300 [...] BEFORE BEDTIME 90 Tablet 11 4 Active busPIRone HCl 10 MG Oral Tablet (Buspar) Take 1 Tablet by mouth in the morning and 1 Tablet at noon and 1 Tablet before bedtime. 270 Tablet 3 3 03/02/20 24 Discontinued documented as of this encounter (statuses as of 03/02/2024) Active Problems Problem Noted Date Diagnosed Date Idiopathic chronic gout of multiple sites withou t tophus 01/29/2023 Hyperuricemia 12/25/2021 Overview: uric acid 10.4 Primary osteoarthritis of both knees 03/08/2020 Overview: Left is worse Severe obesity with body mas s index (BMI) of 35.0 to 39.9 with serious comorbidity 07/17/2017 Overview: ICD-10 update of inactive diagnosis Benign neoplasm [...] as of this encounter (statuses as of 03/02/2024) Resolved Problems Problem Noted Date Diagnosed Date Resolved Date Chronic kidney disease, stage 3a 07/10/2022 07/18/2022 CKD (chronic kidney disease), stage II 12/25/2021 08/21/2023 Overview: EGFR 65 Food insecurity 10/16/2021 08/21/2023 Overview: Per [facility] Protocol BMI 38.0-38.9,adult 05/25/2016 07/18/19 18 documented as of this encounter (statuses as of 03/02/2024) Immunizations Name Administration Dates Next Due Pneumococcal Conjugate Vacci ne, 20-valent ([id number]) 12/25/2021 Pneumococcal Polysaccharide PPV23 (Pneumovax) 05/25/2016 Seasonal Influenza, PF, 6 M & above, IM , (FluLaval or Fluzone) 01/29/2023,03/21/2022,03/09/2021,03/08,01/26/2019,01/21/2018,03/05/2017 Seasonal Influenza, Quadriva lent, No Preserve, IM 05/25/2016 TDAP (age 10 and older)(Boostrix) 12/07/2015 documented [...] y our heating, water, or electric bill? (Adult - for ages 18 years and over) Not on file 02/02/2024 Is your family able to pay t he heat, water, or electric bill? (Household - for ages 0-17 years) Not on file 02/02/2024 Does your family have access to good internet? (Household - for ages 0-17 years) Not on file 02/02/2024 Employment Status Answer Date Recorded Are you unemployed or without regular income? No 01/22/2023 Does the household have a re gular source of income? (Household - for ages 0-17 years) Not on file 01/22/2023 Social Connections Answer Date Recorded How often do you feel lonely or isolated from those around you? (Adult - for ages 18 years and over) Not on file 02/02/2024 Financial Resource Strain Answer Date R ecorded [...] ages 0-17 years) Not on file 01/22/2023 Sex and Gender Information Value Date Recorded Sex Assigned at Female 09/18/2021 8:15 PM EDT Gender Identity Female 09/18/2021 8:15 PM EDT Sexual Orientation Straight 09/18/2021 8: 15 PM EDT Job Start Date Occupation Industry Not on file Not on file Not on file documented as of this encounter Miscellaneous Notes * Telephone Encounter - Sanjuanita Mckeon MD - 03/02/2024 9:37 AM EDT Signed Prescriptions: Disp Refills busPIRone HCl 10 MG Oral Tablet (Buspar) 90 Tab*11 Sig: TAKE 1 TABLET BY MOUTH IN THE MORNING AT AT NOON AND BEFORE BEDTIME Authorizing Provider: SANJUANITA MCKEON * Telephone Encounter - Naun Bejarano RP - 02/29/2024 12:34 PM EDT Pending Prescriptions: Disp Refills busPIRone HCl 10 MG Oral Tablet [Pharmacy *90 Tab*11 Sig: TAKE 1 TABLET BY MOUTH IN THE MORNING AT AT NOON AND BEFORE BEDTIME * Telephone Encounter - Naun Bejarano RPh - 02/29/2024 12:[address] [facility] is currently not authorized to approve refills for the pended medication(s) per refill protocol. Please approve if appropriate. Thank you, Naun Bejarano, PharmD Clinical Pharmacist [facility] ([facility]) 02/29/24 12:33 PM [phone] documented in this encounter Plan of Treatment Upcoming Encounters Date Type Department Care Team (Late st Contact Info) Description 04/01/2024 8:30 AM EST Office Visit Family Medicine [address] [place] [phone] [place] [address] 04/01/2024 8:50 AM EST Laboratory Laboratory [address] [place] [phone] [place] [address] 04/06/2024 1:15 PM EST Office Visit Orthopaedics [facility] [address] [place] [address] Johnny Hung MD [address] [place] [address] Scheduled Procedures Name Priority Associated Diagnoses Date/Ti [...] exists COVID-19 Vaccine ( - season) 2024 Influenza Vaccine (FLU shot) (#1) 2024 01/29/2023, 01/29/2023, 03/21/2022, Additional history exists TSH 01/30/2024 01/29/2023, 12/05, 09/19/2021, Additional history exists GFR 08/20/2024 08/21/2023, 01/05, 12/25/2021, Additional history exists DTap/Tdap Vaccines (2 - Td or Tdap) 12/06/2025 12/07/2015 Albumin/Creatinine Ratio 01/29/2026 01/29/2023, 12/05 Diabetes Screening 08/20/2026 08/21/2023, 0 01/29/2023, 12/25/2021, Additional history exists Colonoscopy 09/03/2026 09/03/2016, 09/03/2016 Colorectal Cancer Screening 09/03/2026 Lipid Panel 08/20/2028 08/21/2023, 01/05, 09/19/2021, Additional history exists Lung Cancer Screening Completed 05/11/2017 Pneumococcal Vaccine: Pediatrics (0 to 5 Years) and At-Risk Patients (6 to 64 Years) Completed 12/25/2021, 05/25/2016 HPV (Gardasil) Vaccine Aged Out No lo nger eligible based on patient's age to complete this topic MENINGOCOCCAL (MENACTRA/MENVEO) Aged Out No longer eligible based on patient's age to complete this topic documented as of this encounter Medical Devices Not on filedocumented as of this encounter Care Teams Talent Acquisition Lead Relationship Specialty Start Date End Date Janel Thornton DO [address] [place] [address] [place] [phone] PCP - General Internal Medicine 05/25/16 documented as of this encounter
--- OUTSIDE RECORDS SUMMARY | 2024-08-06 07:27 | External Medical Summary | Summary of Care ---
Author Name Unknown Organization [facility] Address [address] [facility] [place] [address] Phone [phone] Care Team Providers Care Director Of Business Applications Name Role Phone Janel Thornton DO Primary Care Provider [phone] Encounter Details Date Type Department Care Team (Late st Contact Info) Description 03/19/2024 Orders Only Family Medicine [address] [place] [phone] Janel Thornton DO [address] [place] [address] [place] [address] Allergies No known active allergiesdocumented as of this encounter (statuses as of 03/19/2024) Medications Magnesium Oxide 400 (240 Mg) MG Tablet Take 1 Tablet by mouth in the morning. X 30 days. 0 Active Furosemide 20 MG Oral Tablet (Lasix)Indications :Bilateral leg edema Take 1 Tablet by mouth in the morning. 90 Tablet 3 3 Active hydrOXYzine HCl 25 MG Oral TabletIndications: Depression with anxiety TAKE 1 TABLET BY MOUTH EVERY 6 HOURS NEEDED FOR ANXIETY 60 Tablet 3 4 Active methylPREDNISolone 4 MG Oral Tablet Therapy Pack (Medrol Dosepack) follow package directions 21 Tablet 1 4 Active Lisinopril 20 MG Oral Tablet (Prinivil)Indicati ons:HTN, goal below 130/80 TAKE 1 TABLET BY MOUTH EVERY DAY IN THE MORNING 90 Tablet 3 4 Active Levothyroxine Sodium 150 MCG Oral Tablet (Levoxyl)Indicatio ns:Acquired hypothyroidism TAKE 1 TABLET BY MOUTH DAILY FIRST THING IN THE MORNING AT LEAST 30MIN PRIOR TO BREAKFAST/OTHE R MEDS 90 Tablet 3 4 Active Omeprazole [...] BEFORE BEDTIME 90 Tablet 11 4 Active predniSONE 10 MG Oral Tablet (Deltasone)Indicat ions:Gout of big toe Take 5 tabs for 2 days, 4 tabs for 2 days, 3 tabs for 2 days, 2 tabs for 2 days 1 tab for 2 days 30 Tablet 4 Active documented as of this encounter (statuses as of 03/19/2024) Active Problems Problem Noted Date Diagnosed Date Idiopathic chronic gout of multiple sites withou isma tophus 01/29/2023 Hyperuricemia 12/25/2021 Overview (12/26/2021): [...] as of this encounter (statuses as of 03/19/2024) Resolved Problems Problem Noted Date Diagnosed Date Resolved Date Chronic kidney disease, stage 3a 07/10/2022 07/18/2022 CKD (chronic kidney disease), stage II 12/25/2021 08/21/2023 Overview (12/26/2021): EGFR 65 Food insecurity 10/16/2021 08/21/2023 Overview: Per [facility] Protocol BMI 38.0-38.9,adult 05/25/2016 07/18/19 18 documented as of this encounter (statuses as of 03/19/2024) Immunizations Name Administration Dates Next Due Pneumococcal Conjugate Vacci ne, 20-valent ([id number]) 12/25/2021 Pneumococcal Polysaccharide PPV23 (Pneumovax) 05/25/2016 Seasonal [...] Description 04/01/2024 8:50 AM EST Laboratory Laboratory [address] [place] [phone] [place] [address] 04/06/2024 1:15 PM EST [facility] [place] [address] Johnny Hung MD [address] [place] [address] 04/07/2024 10:10 AM EST Office Visit Family Medicine [address] [place] [phone] [place] [address] Scheduled Procedures Name Priority Associated Diagnoses Date/Ti [...] history exists COVID-19 Vaccine ( season) 2024 Influenza Vaccine (FLU shot) (#1) 2024 01/29/2023, 01/29/2023, 03/21/2022, Additional history exists TSH 01/30/2024 03/18/2024, 01/05, 12/25/2021, Additional history exists GFR 08/20/2024 03/18/2024, 08/04, 01/29/2023, Additional history exists DTap/Tdap Vaccines (2 - Td or Tdap) 12/06/2025 12/07/2015 Albumin/Creatinine Ratio 01/29/2026 01/29/2023, 12/05 Diabetes Screening 08/20/2026 03/18/2024, 0 08/21/2023, 01/29/2023, Additional history exists Colonoscopy 09/03/2026 09/03/2016, 09/03/2016 [...] Not on filedocumented as of this encounter Procedures Procedure Name Priority Date/Time Associated Diagnosis Comments OUTSIDE LAB-CORONAVIRUS (COVID-19) Routine 03/18/2024 XR CHEST 1 VIEW Routine 03/18/2024 CHEMISTRY-OUTSIDE Routine 03/18/2024 TSH Routine 03/18/2024 documented in this encounter Results * OUTSIDE LAB-CORONAVIRUS (COVID-19) (03/18/2024) Pathologist [facility] [id number] DE LAB NOT DETECTED NOT DETECTED OUTSIDE LAB (SEE SCANNED REPORT) 03/18/2024 [employer] PA-C LABORATORY Final Re sult Performing Organization Address [facility] Co de Phone Number OUTSIDE LAB (SEE SCANNED REPORT) * TSH (03/18/2024) [facility] TSH - OUTSIDE LAB 1.470 0.360 - 3.740 MCIU/ML OUTSIDE LAB (SEE SCANNED REPORT) Blood Venous blood specimen / Unknown 03/18/2024 [employer]-C LAB BLOOD ORDERABLES Fin al Result Performing Organization Address [facility] Co de Phone Number OUTSIDE LAB (SEE SCANNED REPORT) * (ABNORMAL) CHEMISTRY-OUTSIDE (03/18/2024) [facility] Not all results display below - see scan for full detail OUTSIDE LAB (SEE SCANNED REPORT) Comment:SCAN INCLUDES - CBCD , LACTIC ACID, UA, INFLUENZA A/B, COVID, URINE DRUG SCREEN, CMP, ETHANOL LVL, LIPASE, MAGNESIUM, TROPONIN I, TSH CREATININE 1.17(A) 0.55 - 1.02 MG/DL OUTSIDE LAB (SEE SCANNED REPORT) EGFR 54(L) >=60 ML/MIN OUTSIDE LAB (SEE SCANNED REPORT) POTASSIUM 2.8(A) 3.5 - 5.1 MMOL/L OUTSIDE LAB (SEE SCANNED REPORT) GLUCOSE 109 70 - 110 MG/DL OUTSIDE LAB (SEE SCANNED REPORT) HOURS FASTING OUTSID E LAB (SEE SCANNED REPORT) TRIGLYCERIDES-OU TSIDE LAB OUTSIDE LAB (SEE SCANNED REPORT) CHOLESTEROL-OUTS MARIE LAB OUTSIDE LAB (SEE SCANNED REPORT) HDL-OUTSIDE LAB OUTS MARIE LAB (SEE SCANNED REPORT) CHOL/HDL RATIO-OUTSIDE LAB OUTSIDE LAB (SEE SCANNED REPORT) LDL (CALCULATED)-OUT SIDE LAB OUTSIDE LAB (SEE SCANNED REPORT) LDL (DIRECT MEASURE)-OUTSIDE LAB OUTSIDE LAB (SEE SCANNED REPORT) HEMOGLOBIN, G1T-VOMUMGQ LAB OUTSIDE LAB (SEE SCANNED REPORT) PHOSPHORUS-OUTSI DE LAB OUTSIDE LAB (SEE SCANNED REPORT) PTH-OUTSIDE LAB OUTS MARIE LAB (SEE SCANNED REPORT) MICROALBUMIN RATIO-OUTSIDE LAB OUTSIDE LAB (SEE SCANNED REPORT) PROTEIN, UA-OUTSIDE LAB 300(A) NEGATIVE MG/DL OUTSIDE LAB (SEE SCANNED REPORT) HGB 13.5 12.0 - 16.0 GM/DL OUTSIDE LAB (SEE SCANNED REPORT) 03/18/2024 us Laura Miranda PA-C LABORATORY Final Re sult OUTSIDE LAB (SEE SCANNED REPORT) * XR CHEST 1 VIEW (03/18/2024) Anatomical Region Laterality Modality Chest Other 03/18/2024 Laura Miranda PA-C RADIOLOGY (RAD GENERAL) Final Result documented in this encounter Care Teams Director Of Business Applications Relationship Specialty Start Date End Date Janel Thornton DO [address] [place] [address] [place] [address] PCP - General Internal Medicine 05/25/16 documented as of this encounter
--- OUTSIDE RECORDS SUMMARY | 2024-08-06 07:27 | External Medical Summary ---
Author Name Unknown Address Unknown Organization [id number]:[facility] [address] [place] [address] Laboratory Report Ordering Provider Test Date Status SERA BOOTH ALLISON 03/24/2024 15:02:47 Final Observation Date Value Abnormality Reference (Units ) Status Phosphate 03/24/2024 15:02:47 3.7 2.5-4.8 (m g/dL) Final Performing Location [facility] - [address] [place] [address]
--- OUTSIDE RECORDS SUMMARY | 2024-08-06 07:27 | External Medical Summary | Summary of Care ---
Author Name Unknown Organization [facility] Address [address] [facility] [place] [address] Phone [phone] Care Team Providers Care Sexton Helper Name Role Phone Janel Thornton DO Primary Care Provider [phone] Reason for Visit * Reason Comments Outpatient Testing Encounter Details Date Type Department Care Team (Late st Contact Info) Description 03/24/2024 3:00 PM EST Laboratory Laboratory [address] [place] [phone] [address] [place] [address] Hypokalemia; Hypernatremia; Hypomagnesemia; B12 deficiency Allergies No known active allergiesdocumented as of this encounter (statuses as of 03/24/2024) Medications Magnesium Oxide 400 (240 Mg) MG [...] the morning. 30 Tablet 5 4 Active documented as of this encounter (statuses as of 03/24/2024) Active Problems Problem Noted Date Diagnosed Date Idiopathic chronic gout of multiple sites selene champagnes 01/29/2023 Hyperuricemia 12/25/2021 Overview (12/26/2021): uric [...] as of this encounter (statuses as of 03/24/2024) Resolved Problems Problem Noted Date Diagnosed Date Resolved Date Chronic kidney disease, stage 3a 07/10/2022 07/18/2022 CKD (chronic kidney disease), stage II 12/25/2021 08/21/2023 Overview (12/26/2021): EGFR 65 Food insecurity 10/16/2021 08/21/2023 Overview: Per [facility] Protocol BMI 38.0-38.9,adult 05/25/2016 07/18/19 18 documented as of this encounter (statuses as of 03/24/2024) Immunizations Name Administration Dates Next Due Pneumococcal Conjugate Vacci ne, 20-valent ([id number]) 12/25/2021 Pneumococcal Polysaccharide PPV23 (Pneumovax) 05/25/2016 Seasonal [...] Description 04/01/2024 8:50 AM EST Laboratory Laboratory [address] [place] [phone] [place] [address] [place] [address] 04/06/2024 1:15 PM EST Office Visit Orthopaedics [facility] [address] [facility] [place] [address] Johnny Hung MD [address] [place] [address] 04/07/2024 10:10 AM EST Office Visit Family Medicine [address] [place] [phone] Janel Thornton [address] [place] [address] 04/17/2024 11:00 AM EST Imaging Radiology [address] [place] [address] Pending Results Name Type Priority Associated Diagnoses Date /Time BASIC METABOLIC PANEL Lab Routine Hypokalemia Hypernatremia 03/24/2024 3:02 PM EST PHOSPHORUS Lab Routine Hypokalemia 03/24/2024 3:02 PM EST MAGNESIUM Lab Routine Hypomagnesemia 03/24/2024 3:02 PM EST VITAMIN B12 Lab Routine B12 deficiency 03/24/2024 3:02 PM EST Scheduled Procedures Name Priority Associated Diagnoses [...] history exists COVID-19 Vaccine ( season) 2024 GFR 03/18/2025 03/18/2024, 08/04, 01/29/2023, Additional history exists TSH 03/18/2025 03/18/2024, 01/05, 12/25/2021, Additional history exists DTap/Tdap Vaccines (2 - Td or Tdap) 12/06/2025 12/07/2015 Albumin/Creatinine Ratio 01/29/2026 01/29/2023, 12/05 Colonoscopy 09/03/2026 09/03/2016, 09/03/2016 Colorectal Cancer Screening 09/03/2026 Diabetes Screening 03/18/2027 03/18/2024, 0 08/21/2023, 01/29/2023, Additional history exists Lipid Panel 08/20/2028 08/21/2023, [...] as of this encounter Visit Diagnoses Diagnosis Hypokalemia Hypopotassemia Hypernatremia Hyperosmolality and/or hypernatremia Hypomagnesemia Disorders of magnesium metabolism B12 deficiency Other B-complex deficiencies documented in this encounter Care Teams Sexton Helper Relationship Specialty Start Date End Date Janel Thornton DO [address] [place] [address] [place] [phone] PCP - General Internal Medicine 05/25/16 documented as of this encounter
--- OUTSIDE RECORDS SUMMARY | 2024-08-06 07:27 | External Medical Summary ---
Author Name Unknown Address Unknown Organization [id number]:LAB[facility]ATORY [facility] - [address] [place] [address] Laboratory Report Ordering Provider Test Date Status SERA BOOTH ALLISON 03/24/2024 15:02:47 Final Observation Date Value Abnormality Reference (Units ) Status Vitamin B12 03/24/2024 15:02:47 [phone] (pg/mL) Final Performing Location LABORATORY [facility] - [address] [place] [address]
--- OUTSIDE RECORDS SUMMARY | 2024-08-06 07:27 | External Medical Summary ---
Author Name Unknown Address Unknown Organization [id number]:[facility] - [address] [place] [address] Laboratory Report Ordering Provider Test Date Status SERA BOOTH SEIFERT 03/24/2024 15:02:47 Final Observation Date Value Abnormality Reference (Units ) Status Magnesium 03/24/2024 15:02:47 1.0 Below low normal 1.5 -2.6 (mg/dL) Final Performing Location [facility] - [address] [place] [address]
--- OUTSIDE RECORDS SUMMARY | 2024-08-06 07:27 | External Medical Summary ---
Author Name Unknown Address Unknown Organization [id number]:[facility] [address] [facility] [address] [place] [address] Laboratory Report Ordering Provider Test Date Status SERA BOOTH 03/24/2024 15:02:47 Final Observation Date Value Abnormality Reference (Units ) Status BUN 03/24/2024 15:02:47 8 6-20 (mg/dL) Final Creatinine 03/24/2024 15:02:47 0.9 0.5-1.0 (mg/dL) Final Glomerular filtration rate/1.73 sq M.predicted [Volume Rate/Area] in Serum, Plasma or Blood by Creatinine-based formula (CKD-EPI) 03/24/2024 15:02:47 73 >=60 (mL/min) Final eGFR is calculated based on the CKD-EPI 2020 equation. Sodium 03/24/2024 15:02:47 141 135-146 (m mol/L) Final Potassium 03/24/2024 15:02:47 3.2 Below low normal 3.5 -5.1 (mmol/L) Final Cl 03/24/2024 15:02:47 101 98-107 (mm ol/L) Final CO2 03/24/2024 15:02:47 27 22-32 (mmo l/L) Final Anion gap 03/24/2024 15:02:47 13 7-15 (mmol /L) Final Glucose 03/24/2024 15:02:47 88 70-120 (mg /dL) Final Calcium 03/24/2024 15:02:47 7.6 Below low normal 8.4 -10.2 (mg/dL) Final Performing Location [facility] [address] [facility] [address] [place] [address]
--- OUTSIDE RECORDS SUMMARY | 2024-08-06 07:27 | External Medical Summary | Summary of Care ---
Author Name Unknown Organization [facility] Address [address] [facility] [address] Phone [phone] Care Team Providers Care Vessel Master Name Role Phone Janel Thornton DO Primary Care Provider [phone] Reason for Visit * Reason Onset Date Comments Hospital Follow-Up Medication Administration 03/24/2024 Flu an d/or Pneumo Inj Hospital Follow-Up 03/24/2024 Encounter Details Date Type Department Care Team (Latest Contact Info) Description 03/24/2024 2:20 PM EST Office Visit Family Medicine [address] [place] [phone] Janel Nicholson MD [address] [place] [address] [place] [phone] Hospital discharge follow-up*; Need for prophylactic vaccination and inoculation against influenza; Acute idiopathic gout of left foot; Hypertension goal BP (blood pressure) < 140/90; Hypokalemia; Hypernatremia; Hypomagnesemia; B12 deficiency; Acquired hypothyroidism Allergies No known active allergiesdocumented as of this encounter (statuses as of 03/24/2024) Medications Magnesium Oxide 400 (240 Mg) MG Tablet Take 1 Tablet by mouth in the morning. X 30 days. 020 Active Furosemide 20 MG Oral Tablet (Lasix)Indication s:Bilateral leg edema Take 1 Tablet by mouth in the morning. 90 Tablet 3 023 Active hydrOXYzine HCl 25 MG Oral TabletIndications :Depression with anxiety TAKE 1 TABLET BY MOUTH EVERY 6 HOURS NEEDED FOR ANXIETY 60 Tablet 3 024 Active Levothyroxine Sodium 150 MCG Oral Tablet (Levoxyl)Indicati ons:Acquired hypothyroidism TAKE 1 TABLET BY MOUTH DAILY FIRST THING IN THE MORNING AT LEAST 30MIN PRIOR TO BREAKFAST/OTH ER MEDS 90 Tablet 3 024 Active Omeprazole 20 MG Oral Capsule Delayed Release (PriLOSEC)Indicat ions:Gastroesopha geal reflux disease without esophagitis Take 1 Capsule by mouth in the morning. 90 Capsule 1 Active Potassium Chloride Lori ER 20 MEQ Oral Tablet Extended Release Take 1 Tablet by mouth in the morning. 90 Tablet 3 024 Active Allopurinol 300 MG Oral Tablet (Zyloprim)Indicat ions:Gout of big toe TAKE 1 TABLET BY MOUTH EVERY DAY IN THE MORNING 90 Tablet 1 Active PARoxetine HCl 10 MG Oral Tablet (pAXil) TAKE ONE TABLET BY MOUTH DAILY ALONG WITH 40MG DOSE FOR TOTAL DOSE OF 50MG 90 Tablet 3 Active PARoxetine HCl 40 MG Oral Tablet (pAXil) TAKE 1 TABLET BY MOUTH EVERY DAY IN THE MORNING, along with a 10mg, for total of 50 mg 90 Tablet 3 Active Atorvastatin Calcium 20 MG Oral Tablet (Lipitor)Indicati ons:Hyperlipidemi a with target LDL less than 100 Take 1 Tablet by mouth in the morning. 90 Tablet 3 Active Albuterol Sulfate HFA 108 (90 Base) MCG/ACT Inhalation Aerosol Solution INHALE 2 PUFFS BY MOUTH EVERY 4 HOURS NEEDED FOR COUGH OR WHEEZING 54 g 2 Active busPIRone HCl 10 MG Oral Tablet (Buspar) TAKE 1 TABLET BY MOUTH IN THE MORNING AT AT NOON AND BEFORE BEDTIME 90 Tablet 11 Active D 1000 25 MCG (1000 UT) Oral Capsule Take 1 Capsule by mouth in the morning. Active predniSONE 20 MG Oral Tablet (Deltasone) Take 2 Tablets by mouth in the morning for 5 days. 10 Tablet 024 2023 Active Lisinopril 40 MG Oral Tablet Take 1 Tablet by mouth in the morning. 30 Tablet 5 Active methylPREDNISolon e 4 MG Oral Tablet Therapy Pack (Medrol Dosepack) follow package directions 21 Tablet 1 024 2023 Discontinued(M edication List Clean Up) Lisinopril 20 MG Oral Tablet (Prinivil)Indicat ions:HTN, goal below 130/80 TAKE 1 TABLET BY MOUTH EVERY DAY IN THE MORNING 90 Tablet 3 024 2023 Discontinued predniSONE 10 MG Oral Tablet (Deltasone)Indica tions:Gout of big toe Take 5 tabs for 2 days, 4 tabs for 2 days, 3 tabs for 2 days, 2 tabs for 2 days 1 tab for 2 days 30 Tablet 2023 Discontinued(M edication List Clean Up) documented as of this encounter (statuses as [...] Next Due Pneumococcal Conjugate Vacci ne, 20-valent ([id number]) 12/25/2021 Pneumococcal Polysaccharide PPV23 (Pneumovax) 05/25/2016 Seasonal [...] No 01/22/2023 Does the household have a [facility] source of income? (Household - for ages [...] Sign Reading Time Taken Comments Blood Pressure 160/100 03/24/2024 2:18 PM EST Pulse 118 03/24/2024 2:18 PM EST Temperature 35.9 °C (96.6 °F) 03/24/2024 2:18 PM ES T Respiratory Rate - - Oxygen Saturation 96% 03/24/2024 2:18 PM EST Inhaled Oxygen Concentration - - Weight 98.4 kg (217 lb) 03/24/2024 2:18 PM EST Height 171.5 cm (5' 7.5") 03/24/2024 2:18 PM EST Body Mass Index 33.49 03/24/2024 2:18 PM EST documented in this encounter Patient Instructions * Patient Instructions* Janel Nichoslon MD - 03/24/2024 2:35 PM EST Taking Medicine Safely Medicine is given to help treat or prevent illness. But if you don't take it correctly, it might not help. It might even harm you. Your doctor or pharmacist can help you learn the right way to take your medicine. Listed below are some tips to help you take medicine safely. Safety Tips Have a routine for taking each medicine. Make it part of something you do each day, such as brushing your teeth or eating a meal. When you go to the hospital or your doctor's office, bring all your current medicines in their original boxes or bottles. If you can't do that, bring an up-to-date list of your medicines. Do not stop taking a prescription medicine unless your doctor tells you to. Doing so could make your condition worse. Do not share medicines. Let your doctor and pharmacist know of any allergies you have. Taking prescription medicines with alcohol, street drugs, herbs, supplements, or even some zben-deu-eeialsd medicines can be harmful. Talk to your doctor or pharmacist before using any of these things while taking a prescription medicine. When filling your prescriptions, try using the same pharmacy for all your medicines. If not, let the pharmacist know what medicines you are already on. Keep medicines out of the reach of children and pets. Do not use medicine that has or that doesn't look or smell right. Get rid of it properly. To find out the right way to get rid of medicine: Call your [facility] or [facility] government's household trash and recycling service and ask if a drug take-back program is available in your community. Call your local pharmacy and ask the right way to get rid of the medicine. Go to http://www.fda.gov/ForConsumers/ConsumerUpdates/rey910176 to learn how to get rid of medicines safely. Using Generic Medicines Medicines have brand names and generic (chemical) names. When a medicine is first made, it is sold only under its brand name. Later, it can be made and sold as a generic. Generic medicines cost less than brand-name medicines and most work just as well. Most people can use the generic medicine instead of the brand-name medicine, unless their doctor says otherwise. © 9394-0545 Cain Staley, [address] [place] [address]. All rights reserved. This information is not intended as a substitute for professional medical care. Always follow your healthcare professional's instructions. documented in this encounter Progress Notes * Janel Nicholson MD - 03/24/2024 2:33 PM EST SUBJECTIVE: Kia Blankenship is a 58 year old female. Chief Complaint Patient presents with Hospital Follow-Up Medication Administration Flu and/or Pneumo Inj Hospital Follow-Up Recent Admission: Patient was recently admitted to [facility] on 03/18. The date of discharge was 03/19. Discharge report received and reviewed. Was driving and noticed hand cramps, difficulty with her speaking. Found to have significant electrolyte issues, which were corrected. Had been having some vision issues and was vomiting for a few weeks prior. HPI: Since discharge, feeling better. Still having the vision issues, but will be seeing the eye doc. No services or DME for at home, none needed. Back to her normal activities and life. Has gout in her L foot. Still pretty painful. Mammogram needs to be reordered. BP high on rooming today. Takes lisinopril and lasix, doesn't miss dosages. Doesn't check BP at home. Patient Active Problem List Diagnosis HTN, goal [...] Current Outpatient Medications Medication Sig Dispense Refill Magnesium Oxide 400 (240 Mg) MG Tablet Take 1 Tablet by mouth in the morning. X 30 days. Furosemide 20 MG Oral Tablet (Lasix) Take 1 Tablet by mouth in the morning. 90 Tablet 3 hydrOXYzine HCl 25 MG Oral Tablet TAKE 1 TABLET BY MOUTH EVERY 6 HOURS NEEDED FOR ANXIETY 60 Tablet 3 Lisinopril 20 MG Oral Tablet (Prinivil) TAKE 1 TABLET BY MOUTH EVERY DAY IN THE MORNING 90 Tablet 3 Levothyroxine Sodium 150 MCG Oral Tablet (Levoxyl) TAKE 1 TABLET BY MOUTH DAILY FIRST THING IN THE MORNING AT LEAST 30MIN PRIOR TO BREAKFAST/OTHER MEDS 90 Tablet 3 Omeprazole 20 MG Oral Capsule Delayed Release (PriLOSEC) Take 1 Capsule by mouth in the morning. 90Capsule 1 Potassium Chloride Lori ER 20 MEQ Oral Tablet Extended Release Take 1 Tablet by mouth in the morning. 90 Tablet 3 Allopurinol 300 MG Oral Tablet (Zyloprim) TAKE [...] 1 Capsule by mouth in the morning. No current facility-administered medications for this visit. Current and discharge medications have been reconciled. Review of patient's allergies indicates: No Known Allergies OBJECTIVE: BP 160/100 (BP Site: Left Arm, BP Position: Sitting, BP Cuff Size: Regular) | Pulse 118 | Temp 96.6°F (35.9 °C) (Infrared ) | Ht 5' 7.5" (1.715 m) | Wt 217 lb (98.4 kg) | SpO2 96% | BMI 33.49 kg/m² | BSA 2.17 m² BP recheck 154/100 PHYSICAL EXAM: General: alert, healthy, and no distress Head: Normocephalic, No masses, lesions, tenderness or abnormalities Neck: supple, no adenopathy, no bruits, thyroid normal size, mild tenderness to palpation, without nodularity Heart: regular rate & rhythm, no murmur, and no gallops Lungs: chest symmetric with normal AP diameter, no chest deformities noted, no chest wall tenderness, lungs clear to auscultation Abdomen: abdomen soft, non-tender, normal bowel sounds, and no masses or organomegaly Extremities: less than 2 second capillary refill, no joint deformities, effusion, or inflammation ASSESSMENT: Hospital discharge follow-up (Primary) - DISCH MED RECON CUR MED LIS - DURABLE MEDICAL EQUIPMENT Need for prophylactic vaccination and inoculation against influenza - INFLUENZA VAC, TRIVALENT, (IIV3), PF, 0.5 ML (FLUZONE) Acute idiopathic gout of left foot Hypertension goal BP (blood pressure) < 140/90 - MYG GENERAL VITALS PT ENTERED - MYG FITNESS PT ENTERED - DURABLE MEDICAL EQUIPMENT Hypokalemia - BASIC METABOLIC PANEL; Future; Expected date: 03/24/2024 - PHOSPHORUS; Future; Expected date: 03/24/2024 Hypernatremia - BASIC METABOLIC PANEL; Future; Expected date: 03/24/2024 Hypomagnesemia - MAGNESIUM; Future; Expected date: 03/24/2024 B12 deficiency - VITAMIN B12; Future; Expected date: 03/24/2024 Acquired hypothyroidism Other orders - predniSONE 20 MG Oral Tablet (Deltasone); Take 2 Tablets by mouth in the morning for 5 days. - Lisinopril 40 MG Oral Tablet; Take 1 Tablet by mouth in the morning. Follow Up: Return in 1 month (on 04/23/2024). PLAN: Change dose of medication(s) to lisinopril to 40 mg Schedule labs: check BMP, phos, Mg, B12 today Increase lisinopril to 40 mg for elevated BP; ordered cuff for at home and encouraged her to track at home. Having a gout flare, will reorder a prednisone course to use. TSH reviewed from the hospital, WNL Follow up with PCP in 2 weeks as scheduled. I spent a total of 30-39 minutes (exact time 35 mins) minutes on the date of service in preparation, delivery, and documentation of the care provided to Kia Blankenship excluding any time spent in performance of separately billed services. Janel Humphrey MD * Donna Sanz CMA - 03/24/2024 2:26 PM EST PRE - ADMINISTRATION DOCUMENTATION Are you experiencing any cold symptoms or fever? No Have you had Guillain-Lanett Syndrome (an illness that causes paralysis) within the last 6 weeks? No Have you had the flu shot in the past? YES Have you ever had a reaction to the flu shot? No Donna Sanz CMA, 03/24/2024 2:26 PM Immunization Administration Documentation Time Out Procedure Performed: Yes Patient Identified (Ask Name/Date of ): Yes Does the patient have a fever greater than 101 degrees today? No Patient allergic to latex? No VFC Stock: No Immunization(s) verified: Yes, Immunization Name: Flu, VIS Sheet(s) given: No Verified Side and Site: Yes Verified Shot(s) with Parent(s)/Patient: Yes documented in this encounter Nursing Notes * Donna Sanz CMA - 03/24/2024 2:25 PM EST Pt reports felling a lot better since d/c; reports was in for critically low labs. Does report has GASPAR today started thi morning documented in this encounter Plan of Treatment Upcoming Encounters Date Type Department Care Team (Late st Contact Info) Description 04/01/2024 8:50 AM EST Laboratory Laboratory [address] [place] [phone] [address] [place] [address] 04/06/2024 1:15 PM EST Office Visit Orthopaedics [facility] [address] [place] [phone] Johnny Hung MD [address] [place] [address] 04/07/2024 10:10 AM EST Office Visit Family Medicine [address] [place] [phone] [place] [address] 04/17/2024 11:00 AM EST Imaging Radiology [address] [place] [address] Pending Results Name Type Priority Associated Diagnoses Date /Time BASIC METABOLIC PANEL Lab Routine Hypokalemia Hypernatremia 03/24/2024 3:02 PM EST PHOSPHORUS Lab Routine Hypokalemia 03/24/2024 3:02 PM EST MAGNESIUM Lab Routine Hypomagnesemia 03/24/2024 3:02 PM EST VITAMIN B12 Lab Routine B12 deficiency 03/24/2024 3:02 PM EST Scheduled Orders Name Type Priority Associated Diagnoses Orde r Schedule BASIC METABOLIC PANEL Lab Routine Hypokalemia Hypernatremia Expected: 03/24/2024 (Approximate), Expires: 03/24/2025 PHOSPHORUS Lab Routine Hypokalemia Expected: 03/24/2024 (Approximate), Expires: 03/24/2025 MAGNESIUM Lab Routine Hypomagnesemia Expected: 03/24/2024 (Approximate), Expires: 03/24/2025 VITAMIN B12 Lab Routine B12 deficiency Expected: 03/24/2024 (Approximate), Expires: 03/24/2025 Scheduled Procedures Name Priority Associated Diagnoses Date/Ti [...] 11/2017, 08/28/2016, Additional history exists COVID-19 Vaccine (1 - season) 2024 GFR 03/18/2025 03/18/2024, 08/04, 01/29/2023, [...] as of this encounter Visit Diagnoses Diagnosis Hospital discharge follow-up- Primary Other follow-up examination Need for prophylactic vaccination and inoculation against influenza Acute idiopathic gout of left foot Hypertension goal BP (blood pressure) < 140/90 Unspecified essential hypertension Hypokalemia Hypopotassemia Hypernatremia Hyperosmolality and/or hypernatremia Hypomagnesemia Disorders of magnesium metabolism B12 deficiency Other B-complex deficiencies Acquired hypothyroidism Unspecified hypothyroidism documented in this encounter Care Teams Vessel Master Relationship Specialty Start Date End Date Janel Thornton DO [address] [place] [address] [place] [phone] PCP - General Internal Medicine 05/25/16 documented as of this encounter
--- OUTSIDE RECORDS SUMMARY | 2024-08-06 07:27 | External Medical Summary | Summary of Care ---
Author Name Unknown Organization [facility] Address [address] [facility] [address] Phone [phone] Care Team Providers Care Handle Bender Name Role Phone Leobardo Thornton DO Primary Care Provider [phone] Reason for Visit * Reason Onset Date Comments Medication Refill 02/26/2024 Encounter Details Date Type Department Care Team (Late st Contact Info) Description 02/26/2024 Refill Family Medicine [address] [place] [phone] Leobardo Thornton DO [address] [place] [address] [place] [id number] Hyperlipidemia with target LDL less than 100 Allergies No known active allergiesdocumented as of this encounter (statuses as of 02/26/2024) Medications Medication Sig Dispensed Refills Start Date End Date Status Magnesium Oxide 400 (240 Mg) MG Tablet Take 1 Tablet by mouth in the morning. X 30 days. 09/07/2019 Active Furosemide 20 MG Oral Tablet (Lasix)Indications: Bilateral leg edema Take 1 Tablet by mouth in the morning. 90 Tablet 3 07/03/2022 Active Allopurinol 300 MG Oral Tablet (Zyloprim)Indicatio ns:Gout of big toe TAKE 1 TABLET BY MOUTH EVERY DAY IN THE MORNING 90 Tablet 3 12/24/2022 Active busPIRone HCl 10 MG Oral Tablet (Buspar) Take 1 Tablet by mouth in the morning and 1 Tablet at noon and 1 Tablet before bedtime. 270 Tablet 3 01/24/2023 Active hydrOXYzine HCl 25 MG Oral TabletIndications:D epression with anxiety TAKE 1 TABLET BY MOUTH EVERY 6 HOURS NEEDED FOR ANXIETY 60 Tablet 3 05/12/2023 Active methylPREDNISolone 4 MG Oral Tablet Therapy Pack (Medrol Dosepack) follow package directions 21 Tablet 1 09/09/2023 Active Lisinopril 20 MG Oral Tablet (Prinivil)Indicatio ns:HTN, goal below 130/80 TAKE 1 TABLET BY MOUTH EVERY DAY IN THE MORNING 90 Tablet 3 01/20/2024 Active Levothyroxine Sodium 150 MCG Oral Tablet (Levoxyl)Indication s:Acquired hypothyroidism TAKE 1 TABLET BY MOUTH DAILY FIRST THING IN THE MORNING AT LEAST 30MIN PRIOR TO BREAKFAST/OTHER MEDS 90 Tablet 3 01/22/2024 Active Omeprazole 20 MG Oral Capsule Delayed Release (PriLOSEC)Indicatio ns:Gastroesophageal reflux disease without esophagitis Take 1 Capsule by mouth in the morning. 90 Capsule 1 02/13/2024 Active Potassium Chloride Lori ER 20 MEQ Oral Tablet Extended Release Take 1 Tablet by mouth in the morning. 90 Tablet 3 02/18/2024 Active PARoxetine HCl 10 MG Oral Tablet (pAXil) TAKE ONE TABLET BY MOUTH DAILY ALONG WITH 40MG DOSE FOR TOTAL DOSE OF 50MG 90 Tablet 3 02/26/2024 Active PARoxetine HCl 40 MG Oral Tablet (pAXil) TAKE 1 TABLET BY MOUTH EVERY DAY IN THE MORNING, along with a 10mg, for total of 50 mg 90 Tablet 3 02/26/2024 Active Atorvastatin Calcium 20 MG Oral Tablet (Lipitor)Indication s:Hyperlipidemia with target LDL less than 100 Take 1 Tablet by mouth in the morning. 90 Tablet 3 02/26/2024 Active Albuterol Sulfate HFA 108 (90 Base) MCG/ACT Inhalation Aerosol Solution INHALE 2 PUFFS BY MOUTH EVERY 4 HOURS NEEDED FOR COUGH OR WHEEZING 54 g 2 02/26/2024 Active Albuterol Sulfate HFA 108 (90 Base) MCG/ACT Inhalation Aerosol Solution INHALE 2 PUFFS BY MOUTH EVERY 4 HOURS NEEDED FOR COUGH OR WHEEZING 54 g 2 01/29/2023 4 Discontinue d(Refill) PARoxetine HCl 40 MG Oral Tablet (pAXil) TAKE 1 TABLET BY MOUTH EVERY DAY IN THE MORNING 90 Tablet 3 01/29/2023 4 Discontinue d(Refill) PARoxetine HCl 10 MG Oral Tablet (pAXil) TAKE ONE TABLET BY MOUTH DAILY ALONG WITH 40MG DOSE FOR TOTAL DOSE OF 50MG 90 Tablet 1 05/13/2023 4 Discontinue d(Refill) Atorvastatin Calcium 20 MG Oral Tablet (Lipitor)Indication s:Hyperlipidemia with target LDL less than 100 Take 1 Tablet by mouth in the morning. 90 Tablet 1 05/13/2023 4 Discontinue d(Refill) documented as of this encounter (statuses as of 02/26/2024) Active Problems Problem Noted Date Diagnosed Date [...] as of this encounter (statuses as of 02/26/2024) Resolved Problems Problem Noted Date Diagnosed Date Resolved Date Chronic kidney disease, stage 3a 07/10/2022 07/18/2022 CKD (chronic kidney disease), stage II 12/25/2021 08/21/2023 Overview: EGFR 65 Food insecurity 10/16/2021 08/21/2023 Overview: Per [facility] Protocol BMI 38.0-38.9,adult 05/25/2016 07/18/19 18 documented as of this encounter (statuses as of 02/26/2024) Immunizations Name Administration Dates Next Due Pneumococcal Conjugate Vacci ne, 20-valent ([id number]) 12/25/2021 Pneumococcal Polysaccharide PPV23 (Pneumovax) 05/25/2016 Seasonal [...] 18 years and over) Not on file 3 Are you (or your family) chelo eless [...] Miscellaneous Notes * Telephone Encounter - Leobardo Thornton, DO - 02/26/2024 10:19 PM EDTSigned Prescriptions: Disp Refills PARoxetine HCl 10 MG Oral Tablet (pAXil) 90 Tab*3 Sig: TAKE ONE TABLET BY MOUTH DAILY ALONG WITH 40MG DOSE FOR TOTAL DOSE OF 50MG Authorizing Provider: LEOBARDO THORNTON PARoxetine HCl 40 MG Oral Tablet (pAXil) 90 Tab*3 Sig: TAKE 1 TABLET BY MOUTH EVERY DAY IN THE MORNING, along with a 10mg, for total of 50 mg Author izing Provider: LEOBARDO THORNTON Atorvastatin Calcium 20 MG Oral Tablet (Li*90 Tab*3 Sig: Take 1 Tablet by mouth in the morning. Authorizing Provider: LEOBARDO THORNTON Albuterol Sulfate HFA 108 (90 Base) MCG/AC*54 g 2 Sig: INHALE 2 PUFFS BY MOUTH EVERY 4 HOURS NEEDED FOR COUGH OR WHEEZING Authorizing Provider: LEOBARDO THORNTON * Telephone Encounter - Jazmyne Cummins RN - 02/26/2024 1:47 PM EDTPending Prescriptions: Disp Refills PARoxetine HCl 10 MG Oral Tablet (pAXil) 90 Tab*1 Sig: TAKE ONE TABLET BY MOUTH DAILY ALONG WITH 40MG DOSE FOR TOTAL DOSE OF 50MG PARoxetine HCl 40 MG Oral Tablet (pAXil) 90 Tab*3 Sig: TAKE 1 TABLET BY MOUTH EVERY DAY IN THE MORNING, along with a 10mg, for total of 50 mg Atorvastatin Calcium 20 MG Oral Tablet (Li*90 T ab*1 Sig: Take 1 Tablet by mouth in the morning. Albuterol Sulfate HFA 108 (90 Base) MCG/AC*54 g 2 Sig: INHALE 2 PUFFS BY MOUTH EVERY 4 HOURS NEEDED FOR COUGH OR WHEEZING * Telephone Encounter - Nathaly Elizabeth OSA - 02/26/2024 12:41 PM EDT Did you pend patient's preferred pharmacy and medication before forwarding?yes Pharmacy: [id number] Pending Prescriptions: Disp Refills PARoxetine HCl 10 MG Oral Tablet (pAXil) 90 Tab*1 Sig: TAKE ONE TABLET BY MOUTH DAILY ALONG WITH 40MG DOSE FOR TOTAL DOSE OF 50MG PARoxetine HCl 40 MG Oral Tablet (pAXil) 90 Tab*3 Sig: TAKE 1 TABLET BY MOUTH EVERY DAY IN THE MORNING Atorvastatin Calcium 20 MG Oral Tablet (L*90 Tab*1 Sig: Take 1 Tablet by mouth in the morning. Albuterol Sulfate HFA 108 (90 Base) MCG/A*54 g 2 Sig: INHALE 2 PUFFS BY MOUTH EVERY 4 HOURS NEEDED FOR COUGH OR WHEEZING Last Visit: 02/14/2024 (in office), Visit date not found (telemedicine) Next Visit: 04/01/2024 If no future appointments scheduled, and last appointment is greater than a year ago, please schedule patient for a follow-up appointment Last date the medication was ordered: 05.13.23 Is this request for a controlled substance?No Urine Drug Screen:No results found for this or any previous visit. Patient Phone Numbers Labs: Lab Results Component Value Date/Time CREAT 1.0 08/21/2023 11:11 AM CREAT 1.1 (H) 03/08/2020 01:10 PM POTASSIUM 4.2 08/21/2023 11:11 AM POTASSIUM 3.8 03/08/2020 01:10 PM TSH 3.23 01/29/2023 03:01 PM TSH 9.51 (H) 03/08/2020 01:10 PM LDL [...] Team (Late st Contact Info) Description 02/27/2024 11:30 AM EDT Office Visit Orthopaedics [address] [phone] Johnny Hung MD [address] [place] [address] 04/01/2024 8:30 AM EST Office Visit Family Medicine [address] [phone] Leobardo Thornton, [address] [place] [address] 04/01/2024 8:50 AM EST Laboratory Laboratory [address] [place] [phone] [place] [address] Scheduled Procedures Name Priority Associated Diagnoses Date/Ti [...] as of this encounter Visit Diagnoses Diagnosis Hyperlipidemia with target LDL less than 100 Other and unspecified hyperlipidemia documented in this encounter Care Teams Handle Bender Relationship Specialty Start Date End Date Leobardo Thornton DO [address] [place] [address] [place] [phone] PCP - General Internal Medicine 05/25/16 documented as of this encounter
--- OUTSIDE RECORDS SUMMARY | 2024-08-06 07:27 | External Medical Summary | Summary of Care ---
Author Name Unknown Organization [facility] Address [address] [facility] [address] Phone [phone] Care Team Providers Care Fire Controlman Name Role Phone ThorntonLeobardo dodge Primary Care Provider + [phone] Reason for Visit * Reason Comments eRx-Medication Refill Encounter Details Date Type Department Care Team (Late st Contact Info) Description 02/25/2024 Refill Family Medicine [address] [place] [phone] Anne Orozco MD [address] [place] [address] [place] [address] Gout of big toe Allergies No known active allergiesdocumented as of this encounter (statuses as of 02/27/2024) Medications Medication Sig Dispensed Refills Start Date End Date Status Magnesium Oxide 400 (240 Mg) MG Tablet Take 1 Tablet by mouth in the morning. X 30 days. 0 Active Furosemide 20 MG Oral Tablet (Lasix)Indications: Bilateral leg edema Take 1 Tablet by mouth in the morning. 90 Tablet 3 3 Active busPIRone HCl 10 MG Oral Tablet (Buspar) Take 1 Tablet by mouth in the morning and 1 Tablet at noon and 1 Tablet before bedtime. 270 Tablet 3 3 Active hydrOXYzine HCl 25 [...] THE MORNING 90 Tablet 1 4 Active Allopurinol 300 MG Oral Tablet (Zyloprim)Indicatio ns:Gout of big toe TAKE 1 TABLET BY MOUTH EVERY DAY IN THE MORNING 90 Tablet 3 3 02/27/20 24 Discontinued documented as of this encounter (statuses as of 02/27/2024) Active Problems Problem Noted Date Diagnosed Date [...] as of this encounter (statuses as of 02/27/2024) Resolved Problems Problem Noted Date Diagnosed Date Resolved Date Chronic kidney disease, stage 3a 07/10/2022 07/18/2022 CKD (chronic kidney disease), stage II 12/25/2021 08/21/2023 Overview: EGFR 65 Food insecurity 10/16/2021 08/21/2023 Overview: Per [facility] Protocol BMI 38.0-38.9,adult 05/25/2016 07/18/19 18 documented as of this encounter (statuses as of 02/27/2024) Immunizations Name Administration Dates Next Due Pneumococcal Conjugate Vacci ne, 20-valent ([id number]) 12/25/2021 Pneumococcal Polysaccharide PPV23 (Pneumovax) 05/25/2016 Seasonal [...] Miscellaneous Notes * Telephone Encounter - Clayton Knutson, [facility] - 02/27/2024 9:54 AM EDT Signed Prescriptions: Disp Refills Allopurinol 300 MG Oral Tablet (Zyloprim) 90 Tab*1 Sig: TAKE 1 TABLET BY MOUTH EVERY DAY IN THE MORNINGAuthorizing Provider: LEOBARDO THRONTONobed User: CLAYTON KNUTSON documented in this encounter Plan of Treatment Upcoming Encounters Date Type Department Care Team (Late st Contact Info) Description 02/27/2024 11:30 AM EDT Office Visit Orthopaedics [address] [phone] Johnny Hung MD [address] [place] [address] 04/01/2024 8:30 AM EST Office Visit Family Medicine [address] [phone] Leobardo Thornton, [address] [place] [address] 04/01/2024 8:50 AM EST Laboratory Laboratory [address] [place] [phone] [facility] [address] [place] [address] Scheduled Procedures Name Priority Associated Diagnoses Date/Ti [...] as of this encounter Visit Diagnoses Diagnosis Gout of big toe Acute gouty arthropathy documented in this encounter Care Teams Fire Controlman Relationship Specialty Start Date End Date Leobardo Thornton DO [address] [place] [address] [place] [address] PCP - General Internal Medicine 05/25/16 documented as of this encounter
--- OUTSIDE RECORDS SUMMARY | 2024-08-06 07:27 | External Medical Summary | Summary of Care ---
Author Name Unknown Organization [facility] Address [address] [facility] [address] Phone [phone] Care Team Providers Care Supervisor Malted Milk Name Role Phone Janel Thornton DO Primary Care Provider [phone] Reason for Visit * Reason Onset Date Comments Test Results 03/25/2024 Encounter Details Date Type Department Care Team (Late st Contact Info) Description 03/25/2024 Telephone Family [address] [phone] Janel Nicholson MD [address] [place] [address] [place] [phone] Test Results Allergies No known active allergiesdocumented as of this encounter (statuses as of 03/25/2024) Medications Furosemide 20 MG Oral Tablet (Lasix)Indications :Bilateral [...] morning for 5 days. 10 Tablet 4 024 Active Lisinopril 40 MG Oral Tablet Take [...] and 1 Tablet before bedtime. 4 Active Magnesium Oxide 400 (240 Mg) MG Tablet Take 1 Tablet by mouth in the morning. X 30 days. 0 024 Discontin ued(Refil l) Potassium Chloride Lori ER 20 MEQ Oral Tablet Extended Release Take 1 Tablet by mouth in the morning. 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 Check BMP and mag next week documented in this encounter Plan of Treatment Upcoming Encounters Date Type Department Care Team (Late st Contact Info) Description 04/01/2024 8:50 AM EST Laboratory Laboratory [address] [place] [phone] [place] [address] 04/06/2024 1:15 PM EST Office Visit Orthopaedics [facility] [address] [place] [address] Johnny Hung MD [address] [place] [address] 04/07/2024 10:10 AM EST Office Visit Family Medicine [address] [place] [phone] [place] [address] 04/17/2024 11:00 AM EST Imaging Radiology [address] [place] [address] Scheduled Orders Name Type Priority Associated Diagnoses Orde r Schedule BASIC METABOLIC PANEL Lab Routine Hypomagnesemia Hypokalemia Expected: 03/25/2024 (Approximate), Expires: 03/25/2025 MAGNESIUM Lab Routine Hypomagnesemia Hypokalemia Expected: 03/25/2024 (Approximate), Expires: 03/25/2025 Scheduled Procedures Name Priority Associated Diagnoses Date/Ti [...] Hypopotassemia documented in this encounter Care Teams Supervisor Malted Milk Relationship Specialty Start Date End Date Janel Thornton DO [address] [place] [address] [place] [address] PCP - General Internal Medicine 05/25/16 documented as of this encounter
--- OUTSIDE RECORDS SUMMARY | 2024-08-06 07:27 | External Medical Summary | Summary of Care ---
Author Name Unknown Organization [facility] Address [address] [facility] [place] [address] Phone [phone] Care Team Providers Care Predatory Animal Hunter Name Role Phone Norberto Janeljorge Gue Primary Care Provider + [phone] Encounter Details Date Type Department Care Team (Late st Contact Info) Description 03/18/2024 Result Scan Unspecified Department <No scans attached> Allergies No known active allergiesdocumented as of [...] 65 Food insecurity 10/16/2021 08/21/2023 Overview: Per [facility] Protocol BMI 38.0-38.9,adult 05/25/2016 07/18/19 18 documented as of this encounter (statuses as of 03/19/2024) Immunizations Name Administration Dates Next Due Pneumococcal Conjugate Vacci ne, 20-valent ([id number]) 12/25/2021 Pneumococcal Polysaccharide PPV23 (Pneumovax) 05/25/2016 Seasonal [...] Description 04/01/2024 8:50 AM EST Laboratory Laboratory [address] [place] [phone] [place] [address] 04/06/2024 1:15 PM EST Office Visit Orthopaedics [facility] [address] [place] [address] Johnny Hung MD [address] [place] [address] 04/07/2024 10:10 AM EST Office Visit Family Medicine [address] [place] [phone] Jan[address] [place] [address] Scheduled Procedures Name Priority Associated Diagnoses Date/Ti [...] 12/25/2021, Additional history exists GFR 08/20/2024 03/18/2024, 0411/2023, 01/29/2023, Additional history exists DTap/Tdap Vaccines (2 [...] Name Priority Date/Time Associated Diagnosis Comments OUTSIDE LAB RESULTS 03/18/2024 RADIOLOGY SCANNED RESULT 03/18/2024 documented in this encounter Results * RADIOLOGY SCANNED RESULT (03/18/2024) 03/18/2024 us No Physician Data Unknown DIAGNOSTIC RADIOLOGY S ERVICES Final Result * OUTSIDE LAB RESULTS (03/18/2024) 03/18/2024 us No Physician Data Unknown LABORATORY Final Result documented in this encounter Care Teams Predatory Animal Hunter Relationship Specialty Start Date End Date Janel Thornton DO [address] [place] [address] [place] [address] PCP - General Internal Medicine 05/25/16 documented as of this encounter
--- OUTSIDE RECORDS SUMMARY | 2024-08-06 07:27 | External Medical Summary | Summary of Care ---
Author Name Unknown Organization [facility] Address [address] [place] [address] Phone [phone] Care Team Providers Care Program Advisor Name Role Phone Leobardo Thornton DO Primary Care Provider [phone] Reason for Visit * Reason Onset Date Comments Medication Refill 02/17/2024 Encounter Details Date Type Department Care Team (Late st Contact Info) Description 02/17/2024 Refill Family Medicine [address] [place] [phone] Leobardo Thornton DO [address] [place] [address] [place] [address] Allergies No known active allergiesdocumented as of this encounter (statuses as of 02/18/2024) Medications Medication Sig Dispensed Refills Start Date [...] before bedtime. 270 Tablet 3 01/24/2023 Active Albuterol Sulfate HFA 108 (90 Base) MCG/ACT Inhalation Aerosol Solution INHALE 2 PUFFS BY MOUTH EVERY 4 HOURS NEEDED FOR COUGH OR WHEEZING 54 g 2 01/29/2023 Active PARoxetine HCl 40 MG Oral Tablet (pAXil) TAKE 1 TABLET BY MOUTH EVERY DAY IN THE MORNING 90 Tablet 3 01/29/2023 Active hydrOXYzine HCl 25 MG Oral TabletIndications:D epression with anxiety TAKE 1 TABLET BY MOUTH EVERY 6 HOURS NEEDED FOR ANXIETY 60 Tablet 3 05/12/2023 Active PARoxetine HCl 10 MG Oral Tablet (pAXil) TAKE ONE TABLET BY MOUTH DAILY ALONG WITH 40MG DOSE FOR TOTAL DOSE OF 50MG 90 Tablet 1 05/13/2023 Active Atorvastatin Calcium 20 MG Oral Tablet (Lipitor)Indication s:Hyperlipidemia with target LDL less than 100 Take 1 Tablet by mouth in the morning. 90 Tablet 1 05/13/2023 Active methylPREDNISolone 4 MG Oral Tablet Therapy [...] the morning. 90 Tablet 3 02/18/2024 Active Potassium Chloride Lori ER 20 MEQ Oral Tablet Extended Release Take 1 Tablet by mouth in the morning. 90 Tablet 3 01/29/2023 Discontinue d(Refill) documented as of this encounter (statuses as of 02/18/2024) Active Problems Problem Noted Date Diagnosed Date [...] as of this encounter (statuses as of 02/18/2024) Resolved Problems Problem Noted Date Diagnosed Date Resolved Date Chronic kidney disease, stage 3a 07/10/2022 07/18/2022 CKD (chronic kidney disease), stage II 12/25/2021 08/21/2023 Overview: EGFR 65 Food insecurity 10/16/2021 08/21/2023 Overview: Per [facility] Protocol BMI 38.0-38.9,adult 05/25/2016 07/18/19 18 documented as of this encounter (statuses as of 02/18/2024) Immunizations Name Administration Dates Next Due Pneumococcal Conjugate Vacci ne, 20-valent ([id number]) 12/25/2021 Pneumococcal Polysaccharide PPV23 (Pneumovax) 05/25/2016 Seasonal [...] Telephone Encounter - Leobardo Thornton DO - 02/18/2024 4:12 PM EDTSigned Prescriptions: Disp Refills Potassium Chloride Lori ER 20 MEQ Oral Tab*90 Tab*3 Sig: Take 1 Tablet by mouth in the morning. Authorizing Provider: LEOBARDO THORNTON * Telephone Encounter - Jazmyne Cummins RN - 02/18/2024 8:03 AM EDTPending Prescriptions: Disp Refills Potassium Chloride Lori ER 20 MEQ Oral Tab*90 Tab*3 Sig: Take 1 Tablet by mouth in the morning. * Telephone Encounter - Brii Kc OSA - 02/17/2024 4:32 PM EDT Did you pend patient's preferred pharmacy and medication before forwarding?yes Pharmacy: [id number] Pending Prescriptions: Disp Refills Potassium Chloride Lori ER 20 MEQ Oral Ta*90 Tab*3 Sig: Take 1 Tablet by mouth in the morning. Last Visit: 02/14/2024 (in office), Visit date not found (telemedicine) Next Visit: 04/01/2024 If no future appointments scheduled, and last appointment is greater than a year ago, please schedule patient for a follow-up appointment Last date the medication was ordered: 01.29.23 Is this request for a controlled substance?No [...] Care Team (Late st Contact Info) Description 02/20/2024 3:00 PM EDT Office Visit Orthopaedics [address] [phone] Johnny Hung MD [address] [place] [address] 04/01/2024 8:30 AM EST Office Visit Family Medicine [address] [place] [phone] Leobardo Thornton [address] [place] [address] 04/01/2024 8:50 AM EST Laboratory Laboratory [address] [place] [phone] [place] [address] Scheduled Procedures Name Priority Associated Diagnoses Date/Ti [...] filedocumented as of this encounter Care Teams Program Advisor Relationship Specialty Start Date End Date Leobardo Thornton DO [address] [place] [address] [place] [phone] PCP - General Internal Medicine 05/25/16 documented as of this encounter
--- OUTSIDE RECORDS SUMMARY | 2024-08-06 07:27 | External Medical Summary | Summary of Care ---
Author Name Unknown Organization [facility] Address [address] [facility] [address] Phone [phone] Care Team Providers Care Exercise Instruct Name Role Phone Janel Thornton Primary Care Provider [phone] Reason for Visit * Reason Comments eRx-Medication Refill Encounter Details Date Type Department Care Team (Late st Contact Info) Description 02/27/2024 Refill Family Medicine [address] [place] [phone] Anne Orozco MD [address] [place] [address] [place] [address] Gout of big toe Allergies No known active allergiesdocumented as of this encounter (statuses as of 02/29/2024) Medications Medication Sig Dispensed Refills Start Date End Date Status Magnesium Oxide 400 (240 Mg) MG Tablet Take 1 Tablet by mouth in the morning. X 30 days. 09/07/2019 Active Furosemide 20 MG Oral Tablet (Lasix)Indications:Bi lateral leg edema Take 1 Tablet by mouth in the morning. 90 Tablet 3 07/03/2022 Active busPIRone HCl 10 MG Oral Tablet (Buspar) Take 1 Tablet by mouth in the morning and 1 Tablet at noon and 1 Tablet before bedtime. 270 Tablet 3 01/24/2023 Active hydrOXYzine HCl 25 MG Oral TabletIndications:Dep ression with anxiety TAKE 1 TABLET BY MOUTH EVERY 6 HOURS NEEDED FOR ANXIETY 60 Tablet 3 05/12/2023 Active methylPREDNISolone 4 MG Oral Tablet Therapy Pack (Medrol Dosepack) follow package directions 21 Tablet 1 09/09/2023 Active Lisinopril 20 MG Oral Tablet (Prinivil)Indications :HTN, goal below 130/80 TAKE 1 TABLET BY MOUTH EVERY DAY IN THE MORNING 90 Tablet 3 01/20/2024 Active Levothyroxine Sodium 150 MCG Oral Tablet (Levoxyl)Indications: Acquired hypothyroidism TAKE 1 TABLET BY MOUTH DAILY FIRST THING IN THE MORNING AT LEAST 30MIN PRIOR TO BREAKFAST/OTHER MEDS 90 Tablet 3 01/22/2024 Active Omeprazole 20 MG Oral Capsule Delayed Release (PriLOSEC)Indications :Gastroesophageal reflux disease without esophagitis Take 1 Capsule by mouth in the morning. 90 Capsule 1 02/13/2024 Active Potassium Chloride Lori ER 20 MEQ Oral Tablet Extended Release Take 1 Tablet by mouth in the morning. 90 Tablet 3 02/18/2024 Active Allopurinol 300 MG Oral Tablet (Zyloprim)Indications :Gout of big toe TAKE 1 TABLET BY MOUTH EVERY DAY IN THE MORNING 90 Tablet 1 02/27/2024 Active PARoxetine HCl 10 MG Oral Tablet [...] Active Atorvastatin Calcium 20 MG Oral Tablet (Lipitor)Indications: Hyperlipidemia with target LDL less than 100 Take 1 Tablet by mouth in the morning. 90 Tablet 3 02/26/2024 Active Albuterol Sulfate HFA 108 (90 Base) MCG/ACT Inhalation Aerosol Solution INHALE 2 PUFFS BY MOUTH EVERY 4 HOURS NEEDED FOR COUGH OR WHEEZING 54 g 2 02/26/2024 Active documented as of this encounter (statuses as of 02/29/2024) Active Problems Problem Noted Date Diagnosed Date [...] as of this encounter (statuses as of 02/29/2024) Resolved Problems Problem Noted Date Diagnosed Date Resolved Date Chronic kidney disease, stage 3a 07/10/2022 07/18/2022 CKD (chronic kidney disease), stage II 12/25/2021 08/21/2023 Overview: EGFR 65 Food insecurity 10/16/2021 08/21/2023 Overview: Per [facility] Protocol BMI 38.0-38.9,adult 05/25/2016 07/18/19 18 documented as of this encounter (statuses as of 02/29/2024) Immunizations Name Administration Dates Next Due Pneumococcal Conjugate Vacci ne, 20-valent ([id number]) 12/25/2021 Pneumococcal Polysaccharide PPV23 (Pneumovax) 05/25/2016 Seasonal [...] encounter Miscellaneous Notes * Telephone Encounter - Estelle Maldonado RPh - 02/29/2024 11:56 AM EDT Refused Prescriptions: Disp Refills Allopurinol 300 MG Oral Tablet (Zyloprim) 90 Tab*3 Sig: TAKE 1 TABLET BY MOUTH EVERY DAY IN THE MORNINGRefused By: ESTELLE MALDONADOeason for Refusal: Duplicate Request documented in this encounter Plan of Treatment Upcoming Encounters Date Type Department Care Team (Late st Contact Info) Description 04/01/2024 8:30 AM EST Office Visit Family Medicine [address] [place] [phone] [place] [address] 04/01/2024 8:50 AM EST Laboratory Laboratory [address] [place] [phone] [place] [address] 04/06/2024 1:15 PM EST Office Visit Orthopaedics [facility] [address] [place] [address] Johnny Hung MD [address] [place] [address] Scheduled Procedures Name Priority Associated Diagnoses Date/Ti [...] arthropathy documented in this encounter Care Teams Exercise Instruct Relationship Specialty Start Date End Date Janel Thornton DO [address] [place] [address] [place] [phone] PCP - General Internal Medicine 05/25/16 documented as of this encounter
--- OUTSIDE RECORDS SUMMARY | 2024-08-06 07:27 | External Medical Summary | Summary of Care ---
Author Name Unknown Organization [facility] Address [address] [place] [address] Phone [phone] Care Team Providers Care Web Analytics Specialist Name Role Phone ThorntonJanel dodge Primary Care Provider [phone] Reason for Referral * Evaluate & Treat - Unlimited Visits (Within 10 days (routine)) - Pending Review Specialty Diagnoses / Procedures Referred By Madison ashby Referred To Contact Physical Therapy / Physical Medicine And Rehab Diagnoses Shoulder injury, right, subsequent encounter Johnny Hung MD [address] [place] [address] Referral ID Status Reason Start Date Expiration Date Visits Requested Visits Authorized [id number] Pending Review Specialty Services Required 4 [phone] Question Answer Referral Priority Within 10 days (routine) Where should this appointment be scheduled? Adam Comments Impingement/tendinosis 09/07/2023: MRI of the right shoulder without contrast IMPRESSION 1. Moderate grade partial-thickness bursal sided tear of the infraspinatus tendon. 2. Moderate supraspinatus and infraspinatus tendinosis. 3. Subacromial subdeltoid bursitis Reason for Visit * Reason Comments Follow Up R shoulder Pain Encounter Details Date Type Department Care Team (Late st Contact Info) Description 02/27/2024 11:30 AM EDT Office Visit Orthopaedics [address] [phone] Johnny Hung MD [address] [place] [address] Shoulder injury, right, subsequent encounter* Allergies No known active allergiesdocumented as of [...] Next Due Pneumococcal Conjugate Vacci ne, 20-valent ([id number]) 12/25/2021 Pneumococcal Polysaccharide PPV23 (Pneumovax) 05/25/2016 Seasonal [...] on file documented as of this encounter Progress Notes * Johnny Hung MD - 02/27/2024 10:42 AM EDT Kia Blankenship [id number] Kia Blankenship is a 57 year old female who presents for follow-up to [facility] for right shoulder injury/pain. I saw her originally for this on 09/05/2023 Most recent visit 12/26/2023 Kia Blankenship is here unaccompanied History: Level of pain: reviewed and agree with Nursing Notes for HPI elements History on 09/05/2023 - New problem -R shoulder -Xray in chart -Pt c/o 11/12 pain today -Pt is unaccompanied today -Pt is Retired -Pt denies sx or injections or PT for r shoulder Additional history 09/12/2023: MRI returned and is described below No change in symptoms Additional history on 10/03/2023: Has noted over 90% improvement in her shoulder. She is also noted improvement in range of motion. She is very pleased. Additional history 12/26/2023 presents today for right shoulder pain. Pain 12/13 today. Pain x 1.5 weeks. Last SAB injection 09/12/23 Since that visit: R shoulder -12/26/23 steroid injection for Subacromial bursa Right w/ultra sound. She reports that injection definitely helped but she does continue to have pain. -Pt c/o 09/12 pain today -Pt not interested in going to PT ROS: ROS per HPI otherwise non-contributory Past Medical History: Diagnosis Date Acquired hypothyroidism 05/25/2016 Depression with anxiety 05/25/2016 Food insecurity Per [facility] Protocol Gastroesophageal reflux disease without esophagitis 05/25/2016 HTN, goal below 140/90 05/25/2016 Hyperlipidemia with target LDL less than 100 05/25/2016 Hyperuricemia 12/25/2021 uric acid 10.4 Tobacco use disorder 05/25/2016 Family History Problem Relation Name Age of Onset Diabetes Mother Heart Disorder Mother [place] Diabetes Father Heart Disorder Father [place] Breast Cancer Grandmother (Paternal) Social History Socioeconomic History Marital status: Domestic Partner Spouse name: Not on file Number of children: 2 Years of education: Not on file Highest education level: Not on file Occupational History Occupation: Filed for disability for chronic low back pain Tobacco Use Smoking status: Every Day Current packs/day: 1.00 Average packs/day: 1 pack/day for 32.0 years (32.0 ttl pk-yrs) Types: Cigarettes Smokeless tobacco: Never Vaping Use Vaping status: Never Used Substance and Sexual Activity Alcohol use: No Drug use: No Sexual activity: Not on file Other Topics Concern Not on file Social History Narrative Not on file Social Determinants of Health Financial Resource Strain: Low Risk (01/22/2023) Financial Resource Strain Do you have any trouble paying for your medications, or do you think you might in the future? (Adult - for ages 18 years and over): No Does your family have trouble paying for medicine? (Household - for ages 0-17 years): Not on file Food Insecurity: Food Insecurity Present (01/22/2023) Food Insecurity Do you need food for this week? (Adult - for ages 18 years and over): Yes Are you able to get enough food for your family? (Household - for ages 0-17 years): Not on file Does your family need food this week? (Household - for ages 0-17 years): Not on file Do you always have enough food for your family? (Household - for ages 0-17 years): Not on file Transportation Needs: Unmet Transportation Needs (01/22/2023) Transportation Needs Do you have trouble getting a ride to medical visits or work? (Adult - for ages 18 years and over):Sometimes True Does your family have a hard time getting a ride to doctors’ visits? (Household - for ages 0-17 years): Not on file Has lack of transportation kept you from medical appointments, meetings, work, or from getting things needed for daily living? Check all that apply. (Adult - for ages 18 years and over): Not on file Do you (or your family) have trouble finding or paying for a ride (transportation)? (Household - for ages 0-17 years): Not on file Social Connections: Unknown (02/02/2024) Social Connections How often do you feel lonely or isolated from those around you? (Adult - for ages 18 years and over): Not on file Housing Stability: High Risk (01/22/2023) Housing Stability Do you currently live in a halfway or have no steady place to sleep at night? (Adult - for ages 18 years and over): Yes Do you think you are at risk of becoming homeless? (Adult - for ages 18 years and over): No Does your family worry about paying for your home or becoming homeless? (Household - for ages 0-17 years): Not on file Are you homeless or worried that you might be in the future? (Adult - for ages 18 years and over): Not on file Are you (or your family) homeless or worried that you might be in the future? (Household - for ages0-17 years): Not on file Physical Exam Constitutional: Generally well-nourished and in no acute distress Psychiatric: Mood and Affect normal Eyes: EOMI Respiratory: Normal respiratory effort with regular rate and rhythm Cardiovascular: No edema in the affected extremity (s) Shoulder Exam Inspection: Unremarkable ROM: Forward Flexion (normal 180): L -180, right, 90 Abduction: L -180, right, 90 Radiology: 09/07/2023: MRI of the right shoulder without contrast IMPRESSION 1. Moderate grade partial-thickness bursal sided tear of the infraspinatus tendon. 2. Moderate supraspinatus and infraspinatus tendinosis. 3. Subacromial subdeltoid bursitis 08/21/2023: Four view x-ray of the right shoulder IMPRESSION: 1. No acute findings. If symptoms persist, consider repeat plain films in 7-10 days. If there is clinical concern for internal derangement, then consider further evaluation with MRI, if MRI is clinically safe to obtain. 2. Question mild widening of the acromioclavicular joint. Acromioclavicular joint separation cannot be excluded. Recommend clinical correlation Assessment and Plan: 1) R shoulder injury 09/07/2023: MRI of the right shoulder without contrast IMPRESSION 1. Moderate grade partial-thickness bursal sided tear of the infraspinatus tendon. 2. Moderate supraspinatus and infraspinatus tendinosis. 3. Subacromial subdeltoid bursitis MRI and case discussed with my colleague Dr. Ketan Hernandez MD (orthopedic surgery, sports medicine) with the patient had been scheduled to see on 09/19/2023. At this point findings are not surgical. Discussed conservative treatments including steroid injection, physical therapy. Patient likely suffering from impingement in could consider subacromial decompression future depending improvement with conservative treatments. Also given the degree bursitis he questioned whether her gout could be involved. I am uncertain that regard given symptoms developed acutely after an injury but that would be in the differential Discussed with the patient Subacromial bursa steroid injection performed with ultrasound guidance 09/12/2023 Has noted over 90% improvement in her shoulder. She is also noted improvement in range of motion. She was very pleased. However symptoms returned Repeat ultrasound-guided subacromial bursa steroid injection performed 12/25/2021 -12/26/23 steroid injection for Subacromial bursa Right w/ultra sound. She reports that injection definitely helped but she does continue to have pain. On multiple visits we have discussed that although we can repeat steroid injections to help with her symptoms that terminal clerk they are not good for the soft tissues we are injecting them around and could lead to tendon rupture Discussed additional options given it is too early to repeat steroid injection. In addition my overall recommendation is that we do not continue these injections indefinitely as they are not good forsoft tissues. Options discussed: Physical therapy, Tenex/PRP, referral to pain management to consider nerve ablation, surgical referral However specifically regarding the surgical referral the patient has not done physical therapy yet and therefore it is highly unlikely she would be offered surgery for subacromial decompression and Ithink she would be wasting both her time as well as surgical time if she had a consultation at thistime. She was in agreement to try physical therapy. Referral placed She will also be scheduled with me in approximately 1 month at which time if she would be over 3 months for previous steroid injection to likely do a subacromial bursa steroid injection to help with physical therapy Johnny Hung MD Sports Medicine Primary Care Orthopaedics [address] [phone] documented in this encounter Nursing Notes * Lori Lyons LPN - 02/27/2024 10:45 AM EDT -f/u -R shoulder -12/26/23 steroid injection for Subacromial bursa Right w/ultra sound -Pt c/o 09/12 pain today -Pt not interested in going to PT -Pt is unaccompanied Myriam Stokes LPN documented in this encounter Plan of Treatment Upcoming Encounters Date Type Department Care Team (Late st Contact Info) Description 04/01/2024 8:30 AM EST Office Visit Family Medicine [address] [place] [phone] [place] [address] 04/01/2024 8:50 AM EST Laboratory Laboratory [address] [place] [phone] [facility] Lab [address] [place] [address] 04/06/2024 1:15 PM EST Office Visit Orthopaedics [facility] [address] [place] [address] Johnny Hung MD [address] [place] [address] Scheduled Procedures Name Priority Associated Diagnoses Date/Ti me COLONOSCOPY FLEXIBLE PROXIMA L DIAGNOSTIC Recall Encounter for screening colonoscopy Scheduled Referrals Name Type Priority Associated Diagnoses Orde r Schedule PHYSICAL THERAPY REFERRAL OP Referral Within 10 days (routine) Shoulder injury, right, subsequent encounter Ordered: 02/27/2024 Health Maintenance Due Date Last Done Comments [...] as of this encounter Visit Diagnoses Diagnosis Shoulder injury, right, subsequent encounter- Primary documented in this encounter Care Teams Web Analytics Specialist Relationship Specialty Start Date End Date Janel Thornton DO [address] [place] [address] [place] [address] PCP - General Internal Medicine 05/25/16 documented as of this encounter
--- OUTSIDE RECORDS SUMMARY | 2024-08-06 07:28 | External Medical Summary | Summary of Care ---
Author Name Unknown Organization [facility] Address [address] [facility] [place] [place] [address] Phone [phone] Care Team Providers Care Terrazzo Mechanic Name Role Phone Thornton, Janeljorge Adams Primary Care Provider [phone] Reason for Visit * Reason Comments Acute Encounter Details Date Type Department Care Team (Late st Contact Info) Description 02/14/2024 9:20 AM EDT Office Visit Family Medicine [address] [place] [phone] Elena Awad PA-C [address] [place] [address] [place] [address] Otalgia of both ears* Allergies No known active allergiesdocumented as of this encounter (statuses as of 02/14/2024) Medications Medication Sig Dispensed Refills Start Date End Date Status Magnesium Oxide 400 (240 Mg) MG Tablet Take 1 Tablet by mouth in the morning. X 30 days. 09/07/2019 Active Furosemide 20 MG Oral Tablet (Lasix)Indications:Bi lateral leg edema Take 1 Tablet by mouth in the morning. 90 Tablet 3 07/03/2022 Active Allopurinol 300 MG Oral Tablet (Zyloprim)Indications [...] OR WHEEZING 54 g 2 01/29/2023 Active Potassium Chloride Lori ER 20 MEQ Oral Tablet Extended Release Take 1 Tablet by mouth in the morning. 90 Tablet 3 01/29/2023 Active PARoxetine HCl 40 MG Oral Tablet (pAXil) TAKE 1 TABLET BY MOUTH EVERY DAY IN THE MORNING 90 Tablet 3 01/29/2023 Active hydrOXYzine HCl 25 MG Oral TabletIndications:Dep [...] the morning. 90 Capsule 1 02/13/2024 Active documented as of this encounter (statuses as of 02/14/2024) Active Problems Problem Noted Date Diagnosed Date [...] as of this encounter (statuses as of 02/14/2024) Resolved Problems Problem Noted Date Diagnosed Date Resolved Date Chronic kidney disease, stage 3a 07/10/2022 07/18/2022 CKD (chronic kidney disease), stage II 12/25/2021 08/21/2023 Overview: EGFR 65 Food insecurity 10/16/2021 08/21/2023 Overview: Per [facility] Protocol BMI 38.0-38.9,adult 05/25/2016 07/18/19 18 documented as of this encounter (statuses as of 02/14/2024) Immunizations Name Administration Dates Next Due Pneumococcal Conjugate Vacci ne, 20-valent ([id number]) 12/25/2021 Pneumococcal Polysaccharide PPV23 (Pneumovax) 05/25/2016 Seasonal [...] Sign Reading Time Taken Comments Blood Pressure 132/80 02/14/2024 8:57 AM EDT Pulse 98 02/14/2024 8:57 AM EDT Temperature 36.1 °C (97 °F) 02/14/2024 8:57 AM EDT Respiratory Rate - - Oxygen Saturation 95% 02/14/2024 8:57 AM EDT Inhaled Oxygen Concentration - - Weight 96.2 kg (212 lb) 02/14/2024 8:57 AM EDT Height - - Body Mass Index 32.71 08/21/2023 10:28 AM EDT documented in this encounter Progress Notes * Elena Awad PA-C - 02/14/2024 8:59 AM EDT Nursing Notes: Laura Marques LPN 02/14/24 0858 Sign at exiting of workspace Bilateral ear pain since Saturday Some double vision? Pt here today with bilateral ear pain, pain into neck for the past few days. Pt denies URI sx, fever, chills, nasal/head congestion, sinus pain/pressure, sore throat. Pt states that she did have somedouble vision this am. Pt hasn't had eye appt in years. Pt denies decreased vision, eye pain, blurry vision. Review of patient's allergies indicates: No Known Allergies Current Outpatient Medications Medication Sig Dispense Refill Magnesium Oxide 400 (240 Mg) MG Tablet Take 1 Tablet by mouth in the morning. X 30 days. Furosemide 20 MG Oral Tablet (Lasix) Take 1 Tablet by mouth in the morning. 90 Tablet 3 Allopurinol 300 MG Oral Tablet (Zyloprim) TAKE 1 TABLET BY MOUTH EVERY DAY IN THE MORNING 90 Tablet3 busPIRone HCl 10 MG Oral Tablet (Buspar) Take 1 Tablet by mouth in the morning and 1 Tablet at noonand 1 Tablet before bedtime. 270 Tablet 3 Albuterol Sulfate HFA 108 (90 Base) MCG/ACT Inhalation Aerosol Solution INHALE 2 PUFFS BY MOUTH EVERY 4 HOURS NEEDED FOR COUGH OR WHEEZING 54 g 2 Potassium Chloride Lori ER 20 MEQ Oral Tablet Extended Release Take 1 Tablet by mouth in the morning. 90 Tablet 3 PARoxetine HCl 40 MG Oral Tablet (pAXil) TAKE 1 TABLET BY MOUTH EVERY DAY IN THE MORNING 90 Tablet 3 hydrOXYzine HCl 25 MG Oral Tablet TAKE 1 TABLET BY MOUTH EVERY 6 HOURS NEEDED FOR ANXIETY 60 Tablet 3 PARoxetine HCl 10 MG Oral Tablet (pAXil) TAKE ONE TABLET BY MOUTH DAILY ALONG WITH 40MG DOSE FOR TOTAL DOSE OF 50MG 90 Tablet 1 Atorvastatin Calcium 20 MG Oral Tablet (Lipitor) Take 1 Tablet by mouth in the morning. 90 Tablet 1 methylPREDNISolone 4 MG Oral Tablet Therapy Pack (Medrol Dosepack) follow package directions 21 Tablet 1 Lisinopril 20 MG Oral Tablet (Prinivil) TAKE [...] by mouth in the morning. 90Capsule 1 No current facility-administered medications for this visit. Past Medical History: Diagnosis Date Acquired hypothyroidism 05/25/2016 Depression with anxiety 05/25/2016 Food insecurity Per [facility] Protocol Gastroesophageal reflux disease without esophagitis 05/25/2016 HTN, goal below 140/90 05/25/2016 Hyperlipidemia with target LDL less than 100 05/25/2016 Hyperuricemia 12/25/2021 uric acid 10.4 Tobacco use disorder 05/25/2016 Social History Socioeconomic History Marital status: Domestic [...] Stability Do you currently live in a long term or have no steady place to sleep [...] - for ages0-17 years): Not on file O:Blood pressure 132/80, pulse 98, temperature 36.1 °C (97 °F), temperature source Tympanic, weight 96.2 kg (212 lb), SpO2 95%. GENERAL: alert, healthy, and no distress NECK: supple, no adenopathy EYES: PERRLA, conjunctiva are pink and non-injected, sclera clear EARS: External ears normal, Canals clear, TM's Normal NOSE: no mucosal erythema, no mucosal edema, no purulent discharge OROPHARYNX: no exudate, no erythema, lips, buccal mucosa, and tongue normal, and mucous membranes are moist HEART: regular rate & rhythm, no murmur, and no gallops LUNGS: chest symmetric with normal AP diameter, no chest deformities noted, no chest wall tenderness, lungs clear to auscultation A:Otalgia of both ears (Primary) Ears look ok. Try flonase and sudafed. Needs to see optometry. Any questions/problems, please call.If anything changes, worsens, develops new sx, please call [facility]. Follow Up: Return if symptoms worsen or fail to improve. Elena Awad PA-C documented in this encounter Nursing Notes * Laura Marques LPN - 02/14/2024 8:57 AM EDT Bilateral ear pain since Saturday Some double vision? documented in this encounter Plan of Treatment Upcoming Encounters Date Type Department Care Team (Late st Contact Info) Description 02/20/2024 3:00 PM EDT Office Visit Orthopaedics [address] [phone] Johnny Hung MD [address] [facility] [place] [address] 04/01/2024 8:30 AM EST Office Visit Family Medicine [address] [phone] Janel Thornton, [address] [place] [address] 04/01/2024 8:50 AM EST Laboratory Laboratory [address] [place] [phone] [place] [address] Scheduled Procedures Name Priority Associated Diagnoses Date/Ti [...] as of this encounter Visit Diagnoses Diagnosis Otalgia of both ears- Primary Otalgia, unspecified documented in this encounter Care Teams Terrazzo Mechanic Relationship Specialty Start Date End Date Janel Thornton DO [address] [place] [address] [place] [id number] PCP - General Internal Medicine 05/25/16 documented as of this encounter
--- OUTSIDE RECORDS SUMMARY | 2024-08-06 07:28 | External Medical Summary | Summary of Care ---
Author Name Unknown Organization [facility] Address [address] [place] [address] Phone [phone] Care Team Providers Care Pill Coater Name Role Phone Janel Thornton DO Primary Care Provider [phone] Reason for Visit * Reason Onset Date Comments Health Maintenance 02/10/2024 Encounter Details Date Type Department Care Team (Late st Contact Info) Description 02/10/2024 Telephone Family Medicine [address] [phone] Janel Thornton DO [address] [place] [address] [place] [address] Health Maintenance Allergies No known active allergiesdocumented as of this encounter (statuses as of 02/12/2024) Medications Medication Sig Dispensed Refills Start Date [...] the morning. 90 Tablet 1 05/13/2023 Active Omeprazole 20 MG Oral Capsule Delayed Release (PriLOSEC)Indications :Gastroesophageal reflux disease without esophagitis Take 1 Capsule by mouth in the morning. 90 Capsule 1 08/21/2023 Active methylPREDNISolone 4 MG Oral Tablet Therapy [...] BREAKFAST/OTHER MEDS 90 Tablet 3 01/22/2024 Active documented as of this encounter (statuses as of 02/12/2024) Active Problems Problem Noted Date Diagnosed Date [...] as of this encounter (statuses as of 02/12/2024) Resolved Problems Problem Noted Date Diagnosed Date Resolved Date Chronic kidney disease, stage 3a 07/10/2022 07/18/2022 CKD (chronic kidney disease), stage II 12/25/2021 08/21/2023 Overview: EGFR 65 Food insecurity 10/16/2021 08/21/2023 Overview: Per [facility] Protocol BMI 38.0-38.9,adult 05/25/2016 07/18/19 18 documented as of this encounter (statuses as of 02/12/2024) Immunizations Name Administration Dates Next Due Pneumococcal Conjugate Vacci ne, 20-valent ([id number]) 12/25/2021 Pneumococcal Polysaccharide PPV23 (Pneumovax) 05/25/2016 Seasonal [...] as of this encounter Miscellaneous Notes * Addendum Note - Rose Santana LPN - 02/12/2024 12:00 PM EDTAddended by: ROSE SANTANA on: 02/12/2024 12:00 PM Modules accepted: Orders * Telephone Encounter - Rose Santana LPN - 02/12/2024 11:59 AM EDT Care Gaps Comprehensive Care Outreach Last Office/Telemedicine Visit: 08/21/2023 (in office), Visit date not found (telemedicine) Next Office Visit: 04/01/2024 Hemoglobin AIC Results: Lab Results Component Value Date/Time HEMOGLOBIN A1C - [facility] 5.6 09/06/2020 10:57 AM HEMOGLOBIN A1C - [facility] 5.8 (H) 09/04/2019 01:04 PM BP Readings from Last 1 Encounters: 08/21/23 132/74 Reviewed Health Maintenance below: Health Maintenance Topic Date Due Hepatitis B Vaccine (1 of 3 - 19+ 3-dose series) Never done Zoster Vaccines (1 of 2) Never done Depression Monitoring 03/08/2021 Mammogram 07/08/2021 Influenza Vaccine (FLU shot) (1) 01/05/2024 COVID-19 Vaccine ( - season) Never done TSH 01/30/2024 Spoke to patient. Will do labs the same day of appt. Mammogram declined. Hurt her shoulder Care Gap Outreach Action Taken: Spoke to patient * Telephone Encounter - Rose Santana LPN - 02/10/2024 9:08 AM EDT Care Gaps Comprehensive Care Outreach Last Office/Telemedicine Visit: 08/21/2023 (in office), Visit date not found (telemedicine) Next Office Visit: 04/01/2024 Hemoglobin AIC Results: Lab Results Component Value Date/Time HEMOGLOBIN A1C - [facility] 5.6 09/06/2020 10:57 AM HEMOGLOBIN A1C - [facility] 5.8 (H) 09/04/2019 01:04 PM BP Readings from Last 1 Encounters: 08/21/23 132/74 Reviewed Health Maintenance below: Health Maintenance Topic Date Due Hepatitis B Vaccine (1 of 3 - 19+ 3-dose series) Never done Zoster Vaccines (1 of 2) Never done Depression Monitoring 03/08/2021 Mammogram 07/08/2021 Influenza Vaccine (FLU shot) (1) 01/05/2024 COVID-19 Vaccine ( - season) Never done TSH 01/30/2024 Mamm lab Care Gap Outreach Action Taken: Left message documented in this encounter Plan of Treatment Upcoming Encounters Date Type Department Care Team (Late st Contact Info) Description 04/01/2024 8:30 AM EST Office Visit Family Medicine [address] [place] [phone] [address] [place] [address] 04/01/2024 8:50 AM EST Laboratory Laboratory [address] [place] [phone] [facility] Lab [address] [place] [address] Scheduled Procedures Name Priority Associated Diagnoses Date/Ti me COLONOSCOPY FLEXIBLE PROXIMA L DIAGNOSTIC Recall Encounter for screening colonoscopy Health Maintenance Due Date Last Done Comments Hepatitis B Vaccine (1 of 3 - 19+ 3-dose series) 11/12/1983 Cologuard 2009 Fecal Occult Blood Test 2009 Sigmoidoscopy 2009 Zoster Vaccines (1 of 2) 2014 Depression Monitoring 03/08/2021 03/08/2020 Mammogram 07/08/2021 07/08/2020, 06/11/2017, 08/28/2016, Additional history exists COVID-19 Vaccine ( [...] filedocumented as of this encounter Care Teams Pill Coater Relationship Specialty Start Date End Date Janel Thornton DO [address] [place] [address] [place] [id number] PCP - General Internal Medicine 05/25/16 documented as of this encounter
--- OUTSIDE RECORDS SUMMARY | 2024-08-06 07:28 | External Medical Summary | Summary of Care ---
Author Name Unknown Organization [facility] Address [address] [place] [address] Phone [phone] Care Team Providers Care Chief Medical Director Name Role Phone Janel Thornton DO Primary Care Provider + [phone] Reason for Visit * Reason Onset Date Comments Health Maintenance 02/10/2024 Encounter Details Date Type Department Care Team (Late st Contact Info) Description 02/10/2024 Telephone Family Medicine [address] [phone] Janel Thornton DO [address] [place] [address] [place] [id number] Health Maintenance Allergies No known active allergiesdocumented as of this encounter (statuses as of 02/10/2024) Medications Medication Sig Dispensed Refills Start Date [...] as of this encounter (statuses as of 02/10/2024) Active Problems Problem Noted Date Diagnosed Date [...] as of this encounter (statuses as of 02/10/2024) Resolved Problems Problem Noted Date Diagnosed Date Resolved Date Chronic kidney disease, stage 3a 07/10/2022 07/18/2022 CKD (chronic kidney disease), stage II 12/25/2021 08/21/2023 Overview: EGFR 65 Food insecurity 10/16/2021 08/21/2023 Overview: Per [facility] Protocol BMI 38.0-38.9,adult 05/25/2016 07/18/19 18 documented as of this encounter (statuses as of 02/10/2024) Immunizations Name Administration Dates Next Due Pneumococcal Conjugate Vacci ne, 20-valent ([id number]) 12/25/2021 Pneumococcal Polysaccharide PPV23 (Pneumovax) 05/25/2016 Seasonal [...] encounter Miscellaneous Notes * Telephone Encounter - Rose Bush LPN - 02/10/2024 9:08 AM EDT Care [...] 8:30 AM EST Office Visit Family Medicine [address] [place] [phone] Janel Thornton[address] [place] [address] Scheduled Procedures Name Priority Associated Diagnoses Date/Ti [...] filedocumented as of this encounter Care Teams Chief Medical Director Relationship Specialty Start Date End Date Janel Thornton DO [address] [place] [address] [place] [phone] PCP - General Internal Medicine 05/25/16 documented as of this encounter
--- OUTSIDE RECORDS SUMMARY | 2024-08-06 07:28 | External Medical Summary | Summary of Care ---
Author Name Unknown Organization [facility] Address [address] [place] [address] Phone [phone] Care Team Providers Care Merchandise Planning Manager Name Role Phone Leobardo Thornton DO Primary Care Provider + [phone] Reason for Visit * Reason Onset Date Comments Medication Refill 02/13/2024 Encounter Details Date Type Department Care Team (Late st Contact Info) Description 02/13/2024 Refill Family Medicine [address] [place] [phone] Leobardo Thornton DO [address] [place], [place] [address] [id number] Gastroesophageal reflux disease without esophagitis Allergies No known active allergiesdocumented as of this encounter (statuses as of 02/13/2024) Medications Medication Sig Dispensed Refills Start Date [...] the morning. 90 Capsule 1 02/13/2024 Active Omeprazole 20 MG Oral Capsule Delayed Release (PriLOSEC)Indicatio ns:Gastroesophageal reflux disease without esophagitis Take 1 Capsule by mouth in the morning. 90 Capsule 1 08/21/2023 4 Discontinue d(Refill) documented as of this encounter (statuses as of 02/13/2024) Active Problems Problem Noted Date Diagnosed Date [...] as of this encounter (statuses as of 02/13/2024) Resolved Problems Problem Noted Date Diagnosed Date Resolved Date Chronic kidney disease, stage 3a 07/10/2022 07/18/2022 CKD (chronic kidney disease), stage II 12/25/2021 08/21/2023 Overview: EGFR 65 Food insecurity 10/16/2021 08/21/2023 Overview: Per [facility] Protocol BMI 38.0-38.9,adult 05/25/2016 07/18/19 18 documented as of this encounter (statuses as of 02/13/2024) Immunizations Name Administration Dates Next Due Pneumococcal Conjugate Vacci ne, 20-valent ([id number]) 12/25/2021 Pneumococcal Polysaccharide PPV23 (Pneumovax) 05/25/2016 Seasonal [...] Telephone Encounter - Leobardo Thornton DO - 02/13/2024 7:55 PM EDTSigned Prescriptions: Disp Refills Omeprazole 20 MG Oral Capsule Delayed Rele*90 Cap*1 Sig: Take 1 Capsule by mouth in the morning. Authorizing Provider: LEOBARDO THORNTON * Telephone Encounter - Jazmyne Cummins RN - 02/13/2024 12:22 PM EDTPending Prescriptions: Disp Refills Omeprazole 20 MG Oral Capsule Delayed Rele*90 Cap*1 Sig: Take 1 Capsule by mouth in the morning. * Telephone Encounter - Nathaly Elizabeth OSA - 02/13/2024 8:23 AM EDT Did you pend patient's preferred pharmacy and medication before forwarding?yes Pharmacy: [id number] Pending Prescriptions: Disp Refills Omeprazole 20 MG Oral Capsule Delayed Rel*90 Cap*1 Sig: Take 1 Capsule by mouth in the morning. Last Visit: 08/21/2023 (in office), Visit date not found (telemedicine) Next Visit: 04/01/2024 If no future appointments scheduled, and last appointment is greater than a year ago, please schedule patient for a follow-up appointment Last date the medication was ordered: 08.21.23 Is this request for a controlled substance?No [...] 9:20 AM EDT Office Visit Family Medicine [address] [place] [phone] Elena Awad PA-C [address] [place] [address] [place] [address] 02/20/2024 3:00 PM EDT Office Visit Orthopaedics [address] [place] [phone] Johnny Hung MD [address] [place] [address] 04/01/2024 8:30 AM EST Office Visit Family Medicine [address] [place] [phone] [address] [place] [address] 04/01/2024 8:50 AM EST Laboratory Laboratory [address] [place] [phone] [facility] [address] [place] [address] Scheduled Procedures Name Priority Associated Diagnoses Date/Ti [...] as of this encounter Visit Diagnoses Diagnosis Gastroesophageal reflux disease without esophagitis Esophageal reflux documented in this encounter Care Teams Merchandise Planning Manager Relationship Specialty Start Date End Date Leobardo Thornton DO [address] [place] [address] [place] [phone] PCP - General Internal Medicine 05/25/16 documented as of this encounter
[2024-08-06 07:49] LABS: Estimated Average Glucose 117 mg/dl; Hemoglobin A1C 5.7 % (4.5-5.6)
[2024-08-06 08:19] LABS: BUN Creatinine Ratio 9.2 (10-20); Calcium 8.6 mg/dl (8.6-10.3); Creatinine Clr Calc Pharmacy 23.9 ml/min; Magnesium 1.9 mg/dl (1.7-2.4); Potassium 4.6 mmol/L (3.5-5.1)
[2024-08-06 08:24] LABS: Hematocrit (blood only) 28.3 % (37.0-47.0); Hemoglobin 9.6 g/dl (12.0-16.0); Mean Corpuscular Hemoglobin 29.8 pg (25.0-34.0); Mean Corpuscular Hgb Conc 33.9 g/dL (32.0-36.0); Mean Corpuscular Volume 87.9 fL (80.0-100.0); Mean Platelet Volume 10.8 fL (9.4-12.4); Platelet Count 276 K/uL (130-400); RDW Coefficient of Variation 13.7 % (11.5-14.5); RDW Standard Deviation 43.9 fL (36.4-46.3); Red Blood Count 3.22 M/uL (4.20-5.40); White Blood Count 8.81 K/ul (4.8-10.8)
[2024-08-06] MEDS ORDERED: allopurinoL 300 MG TAB PO SCH (09:00)
[2024-08-06] MEDS: busPIRone 5 MG TAB PO SCH (09:33)
[2024-08-06] MEDS: PANTOprazole 40 MG TAB PO SCH (09:33)
[2024-08-06] MEDS: PARoxetine HCL 20 MG TAB PO SCH (09:33)
[2024-08-06] MEDS: PARoxetine HCL 10 MG TAB PO SCH (09:34)
--- NOTE | 2024-08-06 09:54 | Electrocardiogram Report ---
Test Reason : Blood Pressure : */* mmHG Vent. Rate : 106 BPM Atrial Rate : 106 BPM P-R Int : 168 ms QRS Dur : 124 ms QT Int : 380 ms P-R-T Axes : 50 93 -17 degrees QTcB Int : 504 ms Sinus tachycardia Rightward axis Incomplete right bundle branch block Abnormal ECG No previous ECGs available Confirmed by Stan Guajardo ([id number]) on 08/06/2024 9:54:24 AM Referred By: REFERRED SELF Confirmed By: Stan Guajardo
[2024-08-06] MEDS: allopurinoL 100 MG TAB PO SCH (10:08)
--- NOTE | 2024-08-06 12:18 | Hospitalist Progress Note ---
Date of Service August 06, 2024 Assessment & Plan (1) PRIYANK (acute kidney injury): (2) Hypotension due to hypovolemia: (3) Gastroenteritis: (4) Prediabetes: (5) Hypothyroidism: Plan: Suppressed TSH (6) Primary hypertension: (7) Anxiety and depression: Plan Patient presented with symptoms consistent with acute viral gastroenteritis and subsequent hypotension and evidence of acute kidney injury. Patient has significantly improved with fluid resuscitation Continue gentle IV hydration, monitor renal function Continue to hold antihypertensive medications and monitor blood pressure Synthroid dose has been decreased due to suppressed TSH, recheck TSH in approximate 4 to 6 weeks as outpatient Advance diet Activities Okay to [employer] Follow laboratory studies in a.m. Admission and Anticipated Discharge Date Admission Date: August 05, 2024 Subjective Patient tolerating clear liquids. No significant abdominal pain. Definitely feeling better. Still a little bit of loose stool Physical Exam Physical Exam: Constitutional: Alert, nontoxic HEENT: Mucous membranes moist. Lungs: Clear to auscultation, decreased, no wheezes rales or rhonchi CV: S1-S2, regular Abdomen: Soft, nontender, nondistended Extremities: No significant edema Neuro: No focal deficits Psych: Cooperative, normal mood Results & Data Results & Data Vital Signs (Past 12 Hours) Vital Signs Temp Pulse Resp BP Pulse Ox O2 Del Method 08/06/24 11:10 36.6 C 78 18 113/68 96 Room Air 08/06/24 07:19 36.5 C 79 18 109/69 96 Room Air 08/06/24 03:00 36.6 C 77 18 100/68 95 Room Air Diagnostic Findings Reviewed imaging, laboratory and diagnostic studies. Pertinent findings as below. Hemoglobin A1c 5.7% Creatinine 2.83, significantly improved Sodium 135, improved Carbon dioxide 23, improved Hemoglobin 9.6, decreased, significant hemodilution with fluid resuscitation. No evidence of blood loss
[2024-08-06] MEDS ORDERED: ALBUTEROL HFA 8 GM INHALER INH PRN (12:19)
[2024-08-06] MEDS: SODIUM CHLORIDE 0.9% 1,000 ML IV SCH (12:32)
[2024-08-06 14:38] LABS: A calco-baum cmplx NotReported Not Detected (NotDetected); Bact fragilis Not Reported Not Detected (NotDetected); Blood Culture Id Panel PCR Panel Negative (NotDetected); C auris Not Reported Not Detected (NotDetected); Calbicans Not Reported Not Detected (NotDetected); Candida glabrata Not Reported Not Detected (NotDetected); Candida krusei Not Reported Not Detected (NotDetected); Cneoformans/gatti Not Reported Not Detected (NotDetected); Cparapsilosis Not Reported Not Detected (NotDetected); E cloacae compx Not Reported Not Detected (NotDetected); Efaecalis Not Reported Not Detected (NotDetected); Efaecium Not Reported Not Detected (NotDetected); Enterobacterales Not Reported Not Detected (NotDetected); Escherichia coli Not Reported Not Detected (NotDetected); H influenzae Not Reported Not Detected (NotDetected); K aerogenes Not Reported Not Detected (NotDetected); Koxytoca Not Reported Not Detected (NotDetected); Kpneumoniae grp Not Reported Not Detected (NotDetected); Lmonocyt Not Reported Not Detected (NotDetected); N meningitidis Not Reported Not Detected (NotDetected); P aeruginosa Not Reported Not Detected (NotDetected); Proteus spp Not Reported Not Detected (NotDetected); Salmonella spp Not Reported Not Detected (NotDetected); Staph lugdunensis Not Reported Not Detected (NotDetected); Staph spp. Not Reported Not Detected (NotDetected); Staphaureus Not Reported Not Detected (NotDetected); Staphepi Not Reported Not Detected (NotDetected); Stenmaltophilia Not Reported Not Detected (NotDetected); Strep agal(GrpB) Not Reported Not Detected (NotDetected); Strep pneum Not Reported Not Detected (NotDetected); Strep pyog (GrpA) Not Reported Not Detected (NotDetected); Strep spp Not Reported Not Detected (NotDetected)
[2024-08-06 15:27] LABS: Adenovirus F 40/41 PCR Not Detected (NotDetected); Astrovirus PCR Not Detected (NotDetected); Campylobacter PCR Not Detected (NotDetected); Cryptosporidium PCR Not Detected (NotDetected); Cyclospora cayetanensis PCR Not Detected (NotDetected); Entamoeba histolytica PCR Not Detected (NotDetected); Enteroaggregative E.coli(EAEC) Not Detected (NotDetected); Enteropathogenic E.coli (EPEC) Not Detected (NotDetected); Enterotoxigenic E.coli (ETEC) Not Detected (NotDetected); Giardia lamblia PCR Not Detected (NotDetected); Norovirus GI/GII PCR Not Detected (NotDetected); Plesiomonas shigelloides PCR Not Detected (NotDetected); Rotavirus A PCR Not Detected (NotDetected); Salmonella PCR Not Detected (NotDetected); Sapovirus PCR Not Detected (NotDetected); Shiga-like Toxin E.coli (STEC) Not Detected (NotDetected); Shigella/Enteroinvasive E.coli Not Detected (NotDetected); Vibrio cholerae PCR Not Detected (NotDetected); Vibrio species PCR Not Detected (NotDetected); Yersinia enterocolitica PCR Not Detected (NotDetected)
[2024-08-06] MEDS: PIPERACILLIN/TAZOBACTAM 4.5 GM/100 ML BAG IV ONE (16:41)
[2024-08-06] MEDS: PIPERACILLIN/TAZOBACTAM 4.5 GM/100 ML BAG IV SCH (22:07)
[2024-08-07 06:34] LABS: Hematocrit (blood only) 25.7 % (37.0-47.0); Hemoglobin 8.7 g/dl (12.0-16.0); Mean Corpuscular Hemoglobin 29.8 pg (25.0-34.0); Mean Corpuscular Hgb Conc 33.9 g/dL (32.0-36.0); Mean Platelet Volume 10.8 fL (9.4-12.4); Platelet Count 240 K/uL (130-400); RDW Coefficient of Variation 13.5 % (11.5-14.5); RDW Standard Deviation 43.3 fL (36.4-46.3); Red Blood Count 2.92 M/uL (4.20-5.40); White Blood Count 6.93 K/ul (4.8-10.8)
[2024-08-07 07:09] LABS: Calcium 8.5 mg/dl (8.6-10.3); Creatinine Clr Calc Pharmacy 21.6 ml/min; Magnesium 1.6 mg/dl (1.7-2.4); Phosphorus 4.7 mg/dl (2.5-4.9); Potassium 4.5 mmol/L (3.5-5.1)
[2024-08-07] MEDS: MAGNESIUM OXIDE 400 MG TAB PO SCH (09:09)
[2024-08-07] MEDS: ATORVASTATIN 20 MG TAB PO SCH (09:11)
--- NOTE | 2024-08-07 12:10 | Hospitalist Progress Note ---
Date of Service August 07, 2024 Assessment & Plan (1) Severe sepsis with acute organ dysfunction: (2) Gram-negative bacteremia: (3) ATN (acute tubular necrosis): (4) PRIYANK (acute kidney injury): (5) Hypotension due to hypovolemia: (6) Gastroenteritis: (7) Prediabetes: (8) Hypothyroidism: Plan: Suppressed TSH (9) Primary hypertension: (10) Anxiety and depression: Plan With additional data and negative viral gastroenteritis and evidence of gram- negative bacteremia, high suspicion patient is bacteremic due to bacterial gastroenteritis and translocation of bacteria through the GI mucosa causing the bacteremia. Presentation then at the time of admission consistent with severe sepsis and acute organ dysfunction with kidney dysfunction due to most likely ATN from hypovolemia and sepsis. Continue gentle hydration Continue to monitor renal function Continue current IV antibiotics, monitor cultures Encourage activity Now that we know patient has ruled out for C. difficile, can give a trial of Imodium Replace magnesium Admission and Anticipated Discharge Date Admission Date: August 05, 2024 Subjective Patient states she is continue to have loose stools but overall feeling better Physical Exam Physical Exam: Constitutional: Alert, nontoxic HEENT: Mucous membranes moist. Lungs: Clear to auscultation, decreased, no wheezes rales or rhonchi CV: S1-S2, regular Abdomen: Soft, nontender, nondistended Extremities: No significant edema Neuro: No focal deficits Psych: Cooperative, normal mood Results & Data Results & Data Vital Signs (Past 12 Hours) Vital Signs Temp Pulse Resp BP Pulse Ox O2 Del Method 08/07/24 11:26 36.4 C L 69 18 104/65 95 Room Air 08/07/24 07:30 36.6 C 77 18 109/73 95 Room Air Diagnostic Findings Reviewed imaging, laboratory and diagnostic studies. Pertinent findings as below. Stool BioFire negative C. difficile negative 1 of 2 blood cultures growing gram-negative bacilli Hemoglobin 8.7, continues to trend down, no evidence of active bleeding Creatinine 3.12 slightly increased from yesterday Magnesium 1.6
[2024-08-07] MEDS: LOPERAMIDE HCL 2 MG CAP PO STA (12:40)
[2024-08-07] MEDS: MAGNESIUM SULFATE / D5W 1 GM/100 ML BAG IV SCH (12:41)
[2024-08-08 07:34] LABS: Hematocrit (blood only) 27.1 % (37.0-47.0); Hemoglobin 9.1 g/dl (12.0-16.0); Mean Corpuscular Hemoglobin 29.5 pg (25.0-34.0); Mean Corpuscular Hgb Conc 33.6 g/dL (32.0-36.0); Platelet Count 240 K/uL (130-400); RDW Coefficient of Variation 13.7 % (11.5-14.5); RDW Standard Deviation 43.7 fL (36.4-46.3); Red Blood Count 3.08 M/uL (4.20-5.40); White Blood Count 6.88 K/ul (4.8-10.8)
[2024-08-08 07:40] LABS: Calcium 8.8 mg/dl (8.6-10.3); Creatinine Clr Calc Pharmacy 24.9 ml/min; Potassium 4.6 mmol/L (3.5-5.1)
[2024-08-08] MEDS: LOPERAMIDE HCL 2 MG CAP PO PRN (09:12)
--- NOTE | 2024-08-08 13:39 | Hospitalist Progress Note ---
Date of Service August 08, 2024 Assessment & Plan (1) Severe sepsis with acute organ dysfunction: (2) Gram-negative bacteremia: (3) ATN (acute tubular necrosis): (4) PRIYANK (acute kidney injury): (5) Hypotension due to hypovolemia: (6) Gastroenteritis: (7) Prediabetes: (8) Hypothyroidism: Plan: Suppressed TSH (9) Primary hypertension: (10) Anxiety and depression: Plan Patient significantly improved from gram-negative sepsis and bacteremia most likely due to a bacterial gastroenteritis. Communication with microbiology lab and pharmacy. Reviewed antibiogram. Anticipated transitioning to ciprofloxacin for discharge Continue to monitor renal function another 24 hours Encouraged activity Anticipate if renal function continues to improve discharge tomorrow Admission and Anticipated Discharge Date Admission Date: August 05, 2024 Subjective Patient states that she is feeling better, had a little bit of nausea and vomiting after breakfast this morning. No belly pain. Tolerated diet yesterday. Certainly feels as though she is having more energy. Physical Exam Physical Exam: Constitutional: Alert, nontoxic in appearance HEENT: Mucous membranes moist. Lungs: Clear to auscultation, decreased, no wheezes rales or rhonchi CV: S1-S2, regular Abdomen: Soft, nontender, nondistended Extremities: No significant edema Neuro: No focal deficits Psych: Cooperative, normal mood Results & Data Results & Data Vital Signs (Past 12 Hours) Vital Signs Temp Pulse Resp BP Pulse Ox O2 Del Method 08/08/24 11:48 36.3 C L 78 18 100/66 96 Room Air 08/08/24 10:13 Room Air 08/08/24 07:40 36.6 C 75 18 130/81 95 Room Air Diagnostic Findings Reviewed imaging, laboratory and diagnostic studies. Pertinent findings as below. Hemoglobin 9.1, improved Creatinine 2.7, improved Blood culture growing Acinetobacter. Sensitivities reviewed
[2024-08-08 23:03] VITALS: O2SAT 97
[2024-08-09 07:04] LABS: Hematocrit (blood only) 27.9 % (37.0-47.0); Hemoglobin 9.3 g/dl (12.0-16.0); Mean Corpuscular Hemoglobin 29.1 pg (25.0-34.0); Mean Corpuscular Hgb Conc 33.3 g/dL (32.0-36.0); Mean Corpuscular Volume 87.2 fL (80.0-100.0); Mean Platelet Volume 10.9 fL (9.4-12.4); Platelet Count 218 K/uL (130-400); RDW Coefficient of Variation 13.5 % (11.5-14.5); RDW Standard Deviation 43.1 fL (36.4-46.3); White Blood Count 6.58 K/ul (4.8-10.8)
[2024-08-09 07:24] LABS: BUN Creatinine Ratio 6.6 (10-20); Creatinine Clr Calc Pharmacy 27.8 ml/min; Potassium 4.3 mmol/L (3.5-5.1)
[2024-08-09 08:00] VITALS: PULSE 77; RESP 18; TEMP 97.9
--- NOTE | 2024-08-09 11:00 | Discharge Summary ---
Discharge Summary Date of Service August 09, 2024 Principal Dx & Hospital Course #1 = Principal Diagnosis (1) Severe sepsis with acute organ dysfunction: (2) Gram-negative bacteremia: (3) ATN (acute tubular necrosis): (4) PRIYANK (acute kidney injury): (5) Hypotension due to hypovolemia: (6) Gastroenteritis: (7) Prediabetes: (8) Hypothyroidism: Suppressed TSH (9) Primary hypertension: (10) Anxiety and depression: Plan Patient is a 58-year-old female presented to the emergency room with nausea, vomiting, and diarrhea. She is feeling significantly weakened and fatigued. In the emergency room she was noted to be hypotensive and have evidence of acute renal failure. Patient was admitted to the hospital. She was given fluid resuscitation. Orders were placed for stool studies. Additionally it was noted that her TSH was suppressed and her Synthroid dose was decreased. She met severe sepsis criteria at the time of admission. By the following morning her blood pressure had improved and her kidney function had improved. Highly suspicious that she had a significant infection with norovirus and was continue with supportive care. Her renal failure was combination of sepsis, hypotension, use of GORDON inhibitor, volume depletion. Stool studies were obtained and resulted and did not indicate a viral/norovirus infection. C. difficile was ruled out. However, blood culture became positive for gram-negative bacteria which ultimately was determined to be Acinetobacter. She was treated with Zosyn. She she steadily improved through the course of her hospitalization. Her renal function continued to improve steadily with gentle hydration. Her diarrhea resolved. Her diet was advanced and she tolerated it well. Her blood pressure stabilized. And it is presumed that the patient had a acute bacterial gastroenteritis with translocation of bacteria through the mucus of the bowel into her bloodstream causing her bacteremia. On the day of discharge her vital signs are stable. After coordinating with microbiology lab and pharmacy can transition her to oral Cipro. She will complete a 10-day course of antibiotics. She will follow-up with her outpatient PCP to continue to monitor her improving renal function. TSH will be rechecked in approximately 4 to 6 weeks. Notes For Next Care Provider Check BMP, magnesium in 10 to 14 days Check TSH in approximate 4 to 6 weeks Medication Changes From Visit Lisinopril stopped Magnesium stopped Cipro for 7 days for infection Admission HPI Per Admitting Provider History obtained from patient, family, and records. Medical history significant for hypertension, hyperlipidemia, hypothyroidism, CRI (baseline creatinine 1.4), GERD, gout, anxiety/mood disorder, ongoing tobacco abuse. Recent confinement [facility] a few months ago for w eakness and low magnesium as per family. 2 days history of nausea vomiting diarrhea symptoms. Patient feeling weak and fatigued. No headache, chest pain, SOB. Not sure about sick contacts. No recent antibiotic Rx or out-of-town travel. Denies OTC NSAID Rx intake. SBP 70s upon arrival at the ER. Medical History as above Surgical History : Carpal tunnel surgery, CINTIA, appendectomy Family History : DM, breast cancer, heart disease Personal/Social history : 1 pack daily, no EtOH intake, applying for disability Admission Exam Per Admitting Provider See H&P Discharge Exam Constitutional: Alert, nontoxic, no acute distress HEENT: Mucous membranes moist. Lungs: Clear to auscultation, decreased, no wheezes rales or rhonchi CV: S1-S2, regular Abdomen: Soft, nontender, nondistended Extremities: No significant edema Neuro: No focal deficits Psych: Cooperative, normal mood Updated Medication List Medication Instructions Recorded Confirmed Type albuterol sulfate 90 mcg/actuation 2 puff inhalation Q4H PRN COUGH OR 08/05/24 08/05/24 History aerosol inhaler WHEEZING allopurinol 300 mg tablet 300 mg PO QAM 08/05/24 08/05/24 History amlodipine 5 mg tablet 5 mg PO QAM 08/05/24 08/05/24 History atorvastatin 20 mg tablet 20 mg PO QAM 08/05/24 08/05/24 History buspirone 10 mg tablet 10 mg PO TID 08/05/24 08/05/24 History cholecalciferol (vitamin D3) 25 1,000 unit PO QAM 08/05/24 08/05/24 History mcg (1,000 unit) capsule (Vitamin D3) levothyroxine 150 mcg tablet 150 mcg PO QAM 08/05/24 08/05/24 History lisinopril 40 mg tablet 40 mg PO DAILY 08/05/24 08/05/24 History magnesium oxide 400 mg (241.3 mg 800 mg PO QAM 08/05/24 08/05/24 History magnesium) tablet omeprazole 20 mg capsule,delayed 20 mg PO DAILY 08/05/24 08/05/24 History release paroxetine HCl 10 mg tablet 10 mg PO QAM 08/05/24 08/05/24 History paroxetine HCl 40 mg tablet 40 mg PO QAM 08/05/24 08/05/24 History potassium chloride 20 mEq 20 meq PO BID 08/05/24 08/05/24 History tablet,extended release(part/cryst) (Klor-Con M) ciprofloxacin HCl 500 mg tablet 500 mg PO DAILY #7 tabs 08/09/24 Rx (Cipro) levothyroxine 125 mcg tablet 125 mcg PO DAILYBB #30 tabs 08/09/24 Rx (Synthroid) loperamide 2 mg capsule 2 mg PO Q8H PRN loose stool #10 08/09/24 Rx caps Hospital Stay Data Diagnostic Imagining Performed 08/05/24 19:14 CT abd pelvis wo con Stat Reviewed imaging, laboratory and diagnostic studies. Pertinent findings as below. Blood culture grew Acinetobacter in 1 bottle WBC 6.5 Hemoglobin 9.3, improving through her hospitalization Electrolytes all within normal limits Creatinine 2.43, improving through her hospitalization Magnesium 2.0 and Stool bio fire was negative C. difficile negative Pending Results Patient Have Any Pending Studies at Discharge: No Discharge Instructions Given to Patient (Per Discharging Provider) Follow-up with your PCP You will need to have your TSH checked in about 4 to 6 weeks per your PCP Have your kidneys checked through your PCP in approximately 1 to 2 weeks Total Time Total Time Spent Total Time Spent (In Minutes): 34
[2024-08-09 11:18] VITALS: BP 108/71
== END 2024-08-09 13:22 | disposition home or self-care (01) | DRG 871 ==
LOC: ED 18:37 → 2S 20:40